=== PATIENT | female | born 2000 | race Hispanic/Latino ===

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

== ENCOUNTER 2023-03-23 18:14 | Emergency (ER) | payer OTHER ==
--- OUTSIDE RECORDS SUMMARY | 2023-03-23 18:27 | XMS REPORT | Continuity of Care Document ---
:2000 Author Organization [facility] t Address [address] [place] [address] [address] [place] [address] Care Team Providers Name Role Phone Damari Cabrera PA-C Primary Care Physician [phone] DAMARI CABRERA Attending Clinician Unavailable Doctor Unassigned, [place] Attending Clinician Unavailable Damari Cabrera PA-C Attending Clinician Mauri Garcia MD Attending Clinician SHAHZAD DAVIS Attending Clinician Unavailable Shahzad Hernández Attending Clinician Unknown, Attending Attending Clinician Unavailable MAURI GARCIA Attending Clinician Unavailable MARCUS HENDRIX III Attending Clinician Unavailable King KARLA MD, James C Attending Clinician Anamaria Hicks RN Attending Clinician Unavailable Colby Wynn MD Attending Clinician COLBY WYNN Attending Clinician Unavailable Lab, Santhosh Ramirez Attending Clinician Unavailable Isidra Grimaldo Attending Clinician Inocencia Epperson Attending Clinician INOCENCIA PAREKH Attending Clinician Unavailable [facility] Attending Clinician Unavailable YUDITH LAINEZ Attending Clinician Unavailable Yudith Adame Attending Clinician Provider[facility] Attending Clinician Unavailable Anene FEED RESEARCH TECHNICIAN, Gayla Attending Clinician GAYLA ARIAS Attending Clinician Unavailable Lab, Lkj Pedi Attending Clinician Unavailable Regis MASTERSON, Marisel Attending Clinician DAMARI CABRERA Admitting Clinician Unavailable Payers Payer Name Policy Type Policy Number Effective Date Expiration Date Dulce Maria AGUILAR [id number] 2020 00:00:00 [employer] II [id number] 2016 00:00:00 Problems Condition Condition Condition Status Onset Resolution Last Treating Co mments Source Name Details Category Date Date Treatment Clinician Date Encounter Encounter Disease Active Uni vers for post for post 2-12 ity of surgical surgical 00:00: [place] wound wound 00 Medical check check Branch S/P S/P Disease Active Univers matrixecto matrixecto 2-12 it y of my of toe [place] of [place] right of right 00 Medica [place] foot foot Branch Ingrown Ingrown Disease Active Univers toenail of toenail of 3-17 [place] of [place] feet [place] 00:[place] Paronychia Paronychia Disease Active U nivers of great of great 3-17 ity of toe[place] Methotrexa Methotrexa Disease Active U nivers te adverse te adverse 8-19 [place] of reaction, [place], [place] Adjustment Adjustment Disease Active U nivers disorder, disorder, 5-17 ity of unspecifie unspecifie [place] 00 [place] Inverted T Inverted T Disease Active U nivers wave wave 2-01 ity of 00:00: [place] 00 Medical Branch ADHD ADHD Disease Active 2017-06 Overview: Univer s (attention (attention 2-31 Formattin ity of deficit deficit 00:00: g of this [place] hyperactiv hyperactiv 00 note Me dical ity ity might be Branch disorder) disorder) different from the original. Formattin g of this note might be different from the original. 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 Formattin g of this note is different from the original. 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 CNS1 Induction Regimen TAT [id number] Arm A Enrolled or TAT TAT Induction Day 1 8 Cytogenet ics CDKN2A (p16) gene deletion Day 8 MRD n/a Day 29 MRD negative Post-garriosn ction risk group SR T-ALL Post-garrison ction regimen TAT [id number] Arm A - SR TPMT status NEGATIVE [...] ents Source Name Type Date Date Clinician NELARABI DRUG Active Low Other-Cmnt Univ ers NE INGREDI 08-31 ity of 00:00: [place] [facility] Nelarabi Propensi Active Other - See Give U lonnie ne ty to comments 08-31 acetamino ity o f adverse 00:00: phen [place] reaction 00 prior to Medica l s chemo d/t Branch headaches ASPARAGI DRUG Active High Other-Cmnt Univ ers NASE INGREDI 12-30 ity of 00:00: [place] 00 Medical Branch Asparagi Propensi Active Other - See Pancreat i Univers nase ty to comments 12-30 tis ity of adverse 00:00: [place] reaction 00 Medical s Branch Piperaci Propensi Active Unknown - Possible U nivers llin-Ankit ty to See comments 5 drug it y of obactam adverse 00:00: reaction [place] reaction 00 Medical s Branch PIPERACI DRUG Active Unknown-Cmnt Un german LLIN-ANKIT 5-17 ity of OBACTAM 00:00: [place] 00 Medical Branch PROMETHA DRUG Active Low Other-Cmnt Univ ers ZINE INGREDI 4- ity of 00:00: [place] [facility] Prometha Propensi Active Other - See Restless Univers zine ty to comments 09-10 behavior ity of adverse 00:00: Unknown [place] reaction 00 when she Medica l s had Branch reaction VANCOMYC DRUG Active High Other-Cmnt 2017-06 Univ ers IN INGREDI 08-01 ity of 00:00: [place] [facility] Vancomyc Propensi Active Other - See 2017-06 [facility] man' s Univers in ty to comments 08-01 syndrome, ity o f adverse 00:00: hives, [place] reaction 00 swelling Medica l s of face - Branch requires benadryl and infuse over 3 hrs Social History Social Habit Start Date Stop Date Quantity Comments Source Gender identity Universit y [facility] Sexual orientation Univer [facility] Exposure to 2022-10-22 2022-11-01 Not sure [facility] SARS-CoV-2 (event) 00:00:00 07:59:00 [facility] History of Social 2022-07-13 2022-07-13 Univers ity of function 00:00:00 00:00:00 [facility] Tobacco use and 2022-03-24 2022-03-24 Smokeless Universit y of exposure 00:00:00 00:00:00 tobacco non-user [facility] Sex Assigned At [birth year] Universit y of 00:00:00 00:00:00 [facility] Smoking Status Start Date Stop Date Source Never smoked tobacco [facility] Medications Ordered Filled Start Stop Current Ordering Indication Dosage Frequency Signature Comments Components Source Medication Medication Date Date Medication? Clinician (SIG) Name Name fluticasone Yes [id number] Take two Univers propionate 9-05 sprays ea ity of 50 00:00: nostril [place] mcg/actuati 00 BID Medical on nasal Branch spray fluticasone Yes [id number] Take two Univers propionate 9-05 sprays ea ity of 50 00:00: nostril [place] mcg/actuati 00 BID Medical on nasal Branch spray fluticasone 2022-0 Yes [id number] Take two Univers propionate 9-05 sprays ea ity of 50 00:00: nostril [place] mcg/actuati 00 BID Medical on nasal Branch spray lisdexamfet 2022-0 Yes [id number] 30mg Take 1 Univers amine 9-05 capsule by ity of (VYVANSE) 00:00: mouth [place] 30 mg 00 every Medical capsule morning. Branch fluticasone 2022-0 Yes [id number] Take two Univers propionate 9-05 sprays ea ity of 50 00:00: nostril [place] mcg/actuati 00 BID Medical on nasal Branch spray lisdexamfet 2022-0 Yes [id number] 30mg Take 1 Univers amine 9-05 capsule by ity of (VYVANSE) 00:00: mouth [place] 30 mg 00 every Medical capsule morning. Branch fluticasone 2022-0 Yes [id number] Take two Univers propionate 9-05 sprays ea ity of 50 00:00: nostril [place] mcg/actuati 00 BID Medical on nasal Branch spray lisdexamfet 2022-0 Yes [id number] 30mg Take 1 Univers amine 9-05 capsule by ity of (VYVANSE) 00:00: mouth [place] 30 mg 00 every Medical capsule morning. Branch cefdinir 2022-0 2022- Yes [id number] 600mg Take 2 U nivers 300 mg 9-10 11-16 capsules ity of capsule 00:00: 04:59 by mouth [place] 00 :00 in the Medical morning Branch for 10 days. cefdinir 2022-0 2022- Yes [id number] 600mg Take 2 U nivers 300 mg 9-05 09-16 capsules ity of capsule 00:00: 04:59 by mouth [place] 00 :00 in the Medical morning Branch for 10 days. cefdinir 2022-0 2022- Yes [id number] 600mg Take 2 U nivers 300 mg 9-10 11-16 capsules ity of capsule 00:00: 04:59 by mouth [place] 00 :00 in the Medical morning Branch for 10 days. cefdinir 2022-0 2022- Yes [id number] 600mg Take 2 U nivers 300 mg 9-10 11-16 capsules ity of capsule 00:00: 04:59 by mouth [place] 00 :00 in the Medical morning Branch for 10 days. albuterol 2022-0 Yes [id number] 2{puff} Inhale 2 Univers 90 7-25 Puffs ity of mcg/actuati 00:00: every 6 [place] on inhaler 00 (six) Medical hours as Branch needed for Shortness of Breath or Wheezing. bromphenira 2022-0 Yes [id number] 10mL Take 10 mL Univers mine-pseudo 7-25 by mouth 4 it y of ephedrine-D 00:00: (four) [place] M (BROMFED 00 times Medical DM) 2-30-10 daily as Bran ch mg/5 mL needed for syrup Cold symptoms. ibuprofen 0 Yes [id number] 600mg Take 1 U nivers 600 mg 7-25 tablet by ity of tablet 00:00: mouth [place] 00 every 6 Medical (six) Branch hours as needed for Pain (scale 1-3) or Pain (scale 4-6). albuterol 2022-0 Yes [id number] 2{puff} Inhale 2 Univers 90 7-25 Puffs ity of mcg/actuati 00:00: every 6 [place] on inhaler 00 (six) Medical hours as Branch needed for Shortness of Breath or Wheezing. bromphenira 2022-0 Yes [id number] 10mL Take 10 mL Univers mine-pseudo 7-25 by mouth 4 it y of ephedrine-D 00:00: (four) [place] M (BROMFED 00 times Medical DM) 2-30-10 daily as Bran ch mg/5 mL needed for syrup Cold symptoms. ibuprofen 2022-0 Yes [id number] 600mg Take 1 U nivers 600 mg 7-25 tablet by ity of tablet 00:00: mouth [place] 00 every 6 Medical (six) Branch hours as needed for Pain (scale 1-3) or Pain (scale 4-6). albuterol 2022-0 Yes [id number] 2{puff} Inhale 2 Univers 90 7-25 Puffs ity of mcg/actuati 00:00: every 6 [place] on inhaler 00 (six) Medical hours as Branch needed for Shortness of Breath or Wheezing. bromphenira 2022-0 Yes [id number] 10mL Take 10 mL Univers mine-pseudo 7-25 by mouth 4 it y of ephedrine-D 00:00: (four) [place] M (BROMFED 00 times Medical DM) 2-30-10 daily as Bran ch mg/5 mL needed for syrup Cold symptoms. ibuprofen Yes [id number] 600mg Take 1 U nivers 600 mg 7-25 tablet by ity of tablet 00:00: mouth [place] 00 every 6 Medical (six) Branch hours as needed for Pain (scale 1-3) or Pain (scale 4-6). albuterol Yes [id number] 2{puff} Inhale 2 Univers 90 7-25 Puffs ity of mcg/actuati 00:00: every 6 [place] inhaler 00 (six) Medical hours as Branch needed for Shortness of Breath or Wheezing. bromphenira 0 Yes [id number] 10mL Take 10 mL Univers mine-pseudo 7-25 by mouth 4 it y of ephedrine-D 00:00: (four) [place] M (BROMFED 00 times Medical DM) 2-30-10 daily as Bran ch mg/5 mL needed for syrup Cold symptoms. ibuprofen Yes [id number] 600mg Take 1 U nivers 600 mg 7-25 tablet by ity of tablet 00:00: mouth [place] 00 every 6 Medical (six) Branch hours as needed for Pain (scale 1-3) or Pain (scale 4-6). albuterol Yes [id number] 2{puff} Inhale 2 Univers 90 7-25 Puffs ity of mcg/actuati 00:00: every 6 [place] on inhaler 00 (six) Medical hours as Branch needed for Shortness of Breath or Wheezing. bromphenira 0 Yes [id number] 10mL Take 10 mL Univers mine-pseudo 7-25 by mouth 4 it y of ephedrine-D 00:00: (four) [place] M (BROMFED 00 times Medical DM) 2-30-10 daily as Bran ch mg/5 mL needed for syrup Cold symptoms. ibuprofen Yes [id number] 600mg Take 1 U nivers 600 mg 7-25 tablet by ity of tablet 00:00: mouth [place] 00 every 6 Medical (six) Branch hours as needed for Pain (scale 1-3) or Pain (scale 4-6). albuterol 2022-0 Yes [id number] 2{puff} Inhale 2 Univers 90 7-25 Puffs ity of mcg/actuati 00:00: every 6 [place] on inhaler 00 (six) Medical hours as Branch needed for Shortness of Breath or Wheezing. bromphenira 2022-0 Yes [id number] 10mL Take 10 mL Univers mine-pseudo 7-25 by mouth 4 it y of ephedrine-D 00:00: (four) [place] M (BROMFED 00 times Medical DM) 2-30-10 daily as Bran ch mg/5 mL needed for syrup Cold symptoms. ibuprofen 0 Yes [id number] 600mg Take 1 U nivers 600 mg 7-25 tablet by ity of tablet 00:00: mouth [place] 00 every 6 Medical (six) Branch hours as needed for Pain (scale 1-3) or Pain (scale 4-6). albuterol 2022-0 Yes [id number] 2{puff} Inhale 2 Univers 90 7-25 Puffs ity of mcg/actuati 00:00: every 6 [place] on inhaler 00 (six) Medical hours as Branch needed for Shortness of Breath or Wheezing. bromphenira 2022-0 Yes [id number] 10mL Take 10 mL Univers mine-pseudo 7-25 by mouth 4 it y of ephedrine-D 00:00: (four) [place] M (BROMFED 00 times Medical DM) 2-30-10 daily as Bran ch mg/5 mL needed for syrup Cold symptoms. ibuprofen 2022-0 Yes [id number] 600mg Take 1 U nivers 600 mg 7-25 tablet by ity of tablet 00:00: mouth [place] 00 every 6 Medical (six) Branch hours as needed for Pain (scale 1-3) or Pain (scale 4-6). albuterol 2022-0 Yes [id number] 2{puff} Inhale 2 Univers 90 7-25 Puffs ity of mcg/actuati 00:00: every 6 [place] inhaler 00 (six) Medical hours as Branch needed for Shortness of Breath or Wheezing. bromphenira 2022-0 Yes [id number] 10mL Take 10 mL Univers mine-pseudo 7-25 by mouth 4 it y of ephedrine-D 00:00: (four) [place] M (BROMFED 00 times Medical DM) 2-30-10 daily as Bran ch mg/5 mL needed for syrup Cold symptoms. ibuprofen 2022-0 Yes [id number] 600mg Take 1 U nivers 600 mg 7-25 tablet by ity of tablet 00:00: mouth [place] 00 every 6 Medical (six) Branch hours as needed for Pain (scale 1-3) or Pain (scale 4-6). albuterol 2022-0 Yes [id number] 2{puff} Inhale 2 Univers 90 7-25 Puffs ity of mcg/actuati 00:00: every 6 [place] on inhaler 00 (six) Medical hours as Branch needed for Shortness of Breath or Wheezing. bromphenira 2022-0 Yes [id number] 10mL Take 10 mL Univers mine-pseudo 7-25 by mouth 4 it y of ephedrine-D 00:00: (four) [place] M (BROMFED 00 times Medical DM) 2-30-10 daily as Bran ch mg/5 mL needed for syrup Cold symptoms. ibuprofen 0 Yes [id number] 600mg Take 1 U nivers 600 mg 7-25 tablet by ity of tablet 00:00: mouth [place] 00 every 6 Medical (six) Branch hours as needed for Pain (scale 1-3) or Pain (scale 4-6). albuterol 2022-0 Yes [id number] 2{puff} Inhale 2 Univers 90 7-25 Puffs ity of mcg/actuati 00:00: every 6 [place] on inhaler 00 (six) Medical hours as Branch needed for Shortness of Breath or Wheezing. bromphenira 2022-0 Yes [id number] 10mL Take 10 mL Univers mine-pseudo 7-25 by mouth 4 it y of ephedrine-D 00:00: (four) [place] M (BROMFED 00 times Medical DM) 2-30-10 daily as Bran ch mg/5 mL needed for syrup Cold symptoms. ibuprofen 2022-0 Yes [id number] 600mg Take 1 U nivers 600 mg 7-25 tablet by ity of tablet 00:00: mouth [place] 00 every 6 Medical (six) Branch hours as needed for Pain (scale 1-3) or Pain (scale 4-6). albuterol 2022-0 Yes [id number] 2{puff} Inhale 2 Univers 90 7-25 Puffs ity of mcg/actuati 00:00: every 6 [place] on inhaler 00 (six) Medical hours as Branch needed for Shortness of Breath or Wheezing. bromphenira Yes [id number] 10mL Take 10 mL Univers mine-pseudo 7-25 by mouth 4 it y of ephedrine-D 00:00: (four) [place] M (BROMFED 00 times Medical DM) 2-30-10 daily as Bran ch mg/5 mL needed for syrup Cold symptoms. ibuprofen Yes [id number] 600mg Take 1 U nivers 600 mg 7-25 tablet by ity of tablet 00:00: mouth [place] 00 every 6 Medical (six) Branch hours as needed for Pain (scale 1-3) or Pain (scale 4-6). albuterol Yes [id number] 2{puff} Inhale 2 Univers 90 7-25 Puffs ity of mcg/actuati 00:00: every 6 [place] on inhaler 00 (six) Medical hours as Branch needed for Shortness of Breath or Wheezing. bromphenira Yes [id number] 10mL Take 10 mL Univers mine-pseudo 7-25 by mouth 4 it y of ephedrine-D 00:00: (four) [place] M (BROMFED 00 times Medical DM) 2-30-10 daily as Bran ch mg/5 mL needed for syrup Cold symptoms. ibuprofen Yes [id number] 600mg Take 1 U nivers 600 mg 7-25 tablet by ity of tablet 00:00: mouth [place] 00 every 6 Medical (six) Branch hours as needed for Pain (scale 1-3) or Pain (scale 4-6). albuterol Yes [id number] 2{puff} Inhale 2 Univers 90 7-25 Puffs ity of mcg/actuati 00:00: every 6 [place] on inhaler 00 (six) Medical hours as Branch needed for Shortness of Breath or Wheezing. bromphenira 0 Yes [id number] 10mL Take 10 mL Univers mine-pseudo 7-25 by mouth 4 it y of ephedrine-D 00:00: (four) [place] M (BROMFED 00 times Medical DM) 2-30-10 daily as Bran ch mg/5 mL needed for syrup Cold symptoms. ibuprofen 0 Yes [id number] 600mg Take 1 U nivers 600 mg 7-25 tablet by ity of tablet 00:00: mouth [place] 00 every 6 Medical (six) Branch hours as needed for Pain (scale 1-3) or Pain (scale 4-6). lisdexamfet 0 Yes [id number] 30mg Take 1 Univers amine 6-29 capsule by ity of (VYVANSE) 00:00: mouth [place] 30 mg 00 every Medical capsule morning. Branch lisdexamfet Yes [id number] 30mg Take 1 Univers amine 6-29 capsule by ity of (VYVANSE) 00:00: mouth [place] 30 mg 00 every Medical capsule morning. Branch lisdexamfet Yes [id number] 30mg Take 1 Univers amine 6-29 capsule by ity of (VYVANSE) 00:00: mouth [place] 30 mg 00 every Medical capsule morning. Branch lisdexamfet Yes [id number] 30mg Take 1 Univers amine 6-29 capsule by ity of (VYVANSE) 00:00: mouth [place] 30 mg 00 every Medical capsule morning. Branch lisdexamfet Yes [id number] 30mg Take 1 Univers amine 6-29 capsule by ity of (VYVANSE) 00:00: mouth [place] 30 mg 00 every Medical capsule morning. Branch lisdexamfet Yes [id number] 30mg Take 1 Univers amine 6-29 capsule by ity of (VYVANSE) 00:00: mouth [place] 30 mg 00 every Medical capsule morning. Branch lisdexamfet Yes [id number] 30mg Take 1 Univers amine 6-29 capsule by ity of (VYVANSE) 00:00: mouth [place] 30 mg 00 every Medical capsule morning. Branch lisdexamfet 2022-0 Yes [id number] 30mg Take 1 Univers amine 6-29 capsule by ity of (VYVANSE) 00:00: mouth [place] 30 mg 00 every Medical capsule morning. Branch lisdexamfet 2022- Yes [id number] 30mg Take 1 Univers amine 6-29 capsule by ity of (VYVANSE) 00:00: mouth [place] 30 mg 00 every Medical capsule morning. Branch lisdexamfet 2022-0 Yes [id number] 30mg Take 1 Univers amine 6-29 capsule by ity of (VYVANSE) 00:00: mouth [place] 30 mg 00 every Medical capsule morning. Branch lisdexamfet 2022-0 Yes [id number] 30mg Take 1 Univers amine 6-29 capsule by ity of (VYVANSE) 00:00: mouth [place] 30 mg 00 every Medical capsule morning. Branch lisdexamfet 0 3- No [id number] 30mg Take 1 Univers amine 6-29 09-05 capsule by ity of (VYVANSE) 00:00: 00:00 mouth [place] 30 mg 00 :00 every Medical capsule morning. Branch lisdexamfet 2022-0 Yes [id number] 20mg Take 1 Univers amine 5-30 capsule by ity of (VYVANSE) 00:00: mouth [place] 20 mg 00 every Medical capsule morning. Branch lisdexamfet 2022- No [id number] 20mg Take 1 Univers amine 5-30 06-28 capsule by ity of (VYVANSE) 00:00: 00:00 mouth [place] 20 mg 00 :00 every Medical capsule morning. Branch lisdexamfet 2022- No [id number] 20mg Take 1 Univers amine 5-30 06-28 capsule by ity of (VYVANSE) 00:00: 00:00 mouth [place] 20 mg 00 :00 every Medical capsule morning. Branch benzonatate 2022-0 Yes [id number] 100mg Take 1 Univers 100 mg 2-15 capsule by ity of capsule 00:00: mouth [place] 00 every 8 Medical (eight) Branch hours as needed for Cough. benzonatate 2022-0 Yes [id number] 100mg Take 1 Univers 100 mg 2-15 capsule by ity of capsule 00:00: mouth [place] 00 every 8 Medical (eight) Branch hours as needed for Cough. benzonatate 2022-0 2022- No [id number] 100mg Take 1 Univers 100 mg 2-15 05-30 capsule by ity of capsule 00:00: 00:00 mouth [place] 00 :00 every 8 Medical (eight) Branch hours as needed for Cough. benzonatate 2022-0 3- No [id number] 100mg Take 1 Univers 100 mg 2-15 05-30 capsule by ity of capsule 00:00: 00:00 mouth [place] 00 :00 every 8 Medical (eight) Branch hours as needed for Cough. Methylpredn 2022-0 2023- No [id number] 4mg Take 1 Univers isolone 4 2-15 02-21 tablet by ity of mg tablet 00:00: 05:59 mouth [place] 00 :00 every 12 Medical (twelve) Branch hours for 5 days. ondansetron 2022-0 Yes [id number] 4mg Take 1 Univers 4 mg 2-08 tablet by ity of disintegrat 00:00: mouth [place] ing tablet 00 every 8 Medica l (eight) Branch hours as needed for Nausea and Vomiting (N/V). albuterol 2022-0 Yes [id number] 2{puff} Inhale 2 Univers 90 2-08 Puffs ity of mcg/actuati 00:00: every 6 [place] on inhaler 00 (six) Medical hours as Branch needed for Wheezing or Shortness of Breath. ondansetron 2022-0 Yes [id number] 4mg Take 1 Univers 4 mg 2-08 tablet by ity of disintegrat 00:00: mouth [place] ing tablet 00 every 8 Medica l (eight) Branch hours as needed for Nausea and Vomiting (N/V). albuterol 2022-0 Yes [id number] 2{puff} Inhale 2 Univers 90 2-08 Puffs ity of mcg/actuati 00:00: every 6 [place] on inhaler 00 (six) Medical hours as Branch needed for Wheezing or Shortness of Breath. ondansetron 2022-0 Yes [id number] 4mg Take 1 Univers 4 mg 2-08 tablet by ity of disintegrat 00:00: mouth [place] ing tablet 00 every 8 Medica l (eight) Branch hours as needed for Nausea and Vomiting (N/V). albuterol 3-0 Yes [id number] 2{puff} Inhale 2 Univers 90 2-08 Puffs ity of mcg/actuati 00:00: every 6 [place] on inhaler 00 (six) Medical hours as Branch needed for Wheezing or Shortness of Breath. ondansetron 3-0 Yes [id number] 4mg Take 1 Univers 4 mg 2-08 tablet by ity of disintegrat 00:00: mouth [place] ing tablet 00 every 8 Medica l (eight) Branch hours as needed for Nausea and Vomiting (N/V). albuterol Yes [id number] 2{puff} Inhale 2 Univers 90 2-08 Puffs ity of mcg/actuati 00:00: every 6 [place] on inhaler 00 (six) Medical hours as Branch needed for Wheezing or Shortness of Breath. ondansetron Yes [id number] 4mg Take 1 Univers 4 mg 2-08 tablet by ity of disintegrat 00:00: mouth [place] ing tablet 00 every 8 Medica l (eight) Branch hours as needed for Nausea and Vomiting (N/V). albuterol Yes [id number] 2{puff} Inhale 2 Univers 90 2-08 Puffs ity of mcg/actuati 00:00: every 6 [place] on inhaler 00 (six) Medical hours as Branch needed for Wheezing or Shortness of Breath. ondansetron Yes [id number] 4mg Take 1 Univers 4 mg 2-08 tablet by ity of disintegrat 00:00: mouth [place] ing tablet 00 every 8 Medica l (eight) Branch hours as needed for Nausea and Vomiting (N/V). albuterol Yes [id number] 2{puff} Inhale 2 Univers 90 2-08 Puffs ity of mcg/actuati 00:00: every 6 [place] on inhaler 00 (six) Medical hours as Branch needed for Wheezing or Shortness of Breath. albuterol Yes [id number] 2{puff} Inhale 2 Univers 90 2-08 Puffs ity of mcg/actuati 00:00: every 6 [place] on inhaler 00 (six) Medical hours as Branch needed for Wheezing or Shortness of Breath. albuterol Yes [id number] 2{puff} Inhale 2 Univers 90 2-08 Puffs ity of mcg/actuati 00:00: every 6 [place] on inhaler 00 (six) Medical hours as Branch needed for Wheezing or Shortness of Breath. albuterol 0 Yes [id number] 2{puff} Inhale 2 Univers 90 2-08 Puffs ity of mcg/actuati 00:00: every 6 [place] on inhaler 00 (six) Medical hours as Branch needed for Wheezing or Shortness of Breath. albuterol Yes [id number] 2{puff} Inhale 2 Univers 90 2-08 Puffs ity of mcg/actuati 00:00: every 6 [place] on inhaler 00 (six) Medical hours as Branch needed for Wheezing or Shortness of Breath. albuterol Yes [id number] 2{puff} Inhale 2 Univers 90 2-08 Puffs ity of mcg/actuati 00:00: every 6 [place] on inhaler 00 (six) Medical hours as Branch needed for Wheezing or Shortness of Breath. albuterol Yes [id number] 2{puff} Inhale 2 Univers 90 2-08 Puffs ity of mcg/actuati 00:00: every 6 [place] on inhaler 00 (six) Medical hours as Branch needed for Wheezing or Shortness of Breath. albuterol 2022- No [id number] 2{puff} Inhale 2 Univers 90 2-08 07-25 Puffs ity of mcg/actuati 00:00: 00:00 every 6 [place] inhaler 00 :00 (six) Medical hours as Branch needed for Wheezing or Shortness of Breath. ondansetron 2022- No [id number] 4mg Take 1 Univers 4 mg 2-08 05-30 tablet by ity of disintegrat 00:00: 00:00 [place] tablet 00 :00 every 8 Medica l (eight) Branch hours as needed for Nausea and Vomiting (N/V). ondansetron 2022- No [id number] 4mg Take 1 Univers 4 mg 2-08 05-30 tablet by ity of disintegrat 00:00: 00:00 [place] tablet 00 :00 every 8 Medica l (eight) Branch hours as needed for Nausea and Vomiting (N/V). IBUPROFEN 2022- No Take by [facility] ers ORAL 06-15 mouth. ity of 10:03: 00:00 [place] 50 :00 Medical Branch IBUPROFEN 2022- No Take by [facility] ers ORAL 06-15 mouth. ity of 10:03: 00:00 [place] 50 :00 Medical Branch naproxen 0 Yes [id number] Take 1 tab Univers 500 mg 11 once to ity of tablet 00:00: twice [place] 00 daily, Medical with food, Branch if needed for pain for 5-7 days naproxen 2023-0 Yes [id number] Take 1 tab [facility] 500 mg 1-11 once to [facility] of tablet 00:00: twice [place] 00 daily, Medical with food, Branch if needed for pain for 5-7 days naproxen 2023-0 Yes [id number] Take 1 tab [facility] 500 mg 1-11 once to [facility] of tablet 00:00: twice [place] 00 daily, Medical with food, Branch if needed for pain for 5-7 days naproxen 2023-0 Yes [id number] Take 1 tab [facility] 500 mg 1-11 once to [facility]y of tablet 00:00: twice [place] 00 daily, Medical with food, Branch if needed for pain for 5-7 days naproxen 2023-0 Yes [id number] Take 1 tab [facility] 500 mg 1-11 once to [facility] of tablet 00:00: twice [place] 00 daily, Medical with food, Branch if needed for pain for 5-7 days naproxen 2023-0 Yes [id number] Take 1 tab [facility] 500 mg 1-11 once to [facility]y of tablet 00:00: twice [place] 00 daily, Medical with food, Branch if needed for pain for 5-7 days naproxen 2023-0 Yes [id number] Take 1 tab [facility] 500 mg 1-11 once to [facility]y of tablet 00:00: twice [place] 00 daily, Medical with food, Branch if needed for pain for 5-7 days naproxen 2023-0 Yes [id number] Take 1 tab [facility] 500 mg 1-11 once to [facility]y of tablet 00:00: twice [place] 00 daily, Medical with food, Branch if needed for pain for 5-7 days naproxen 2023-0 Yes [id number] Take 1 tab [facility] 500 mg 1-11 once to ity of tablet 00:00: twice [place] 00 daily, Medical with food, Branch if needed for pain for 5-7 days naproxen 2023-0 Yes [id number] Take 1 tab [facility] 500 mg 1-11 once to [facility]y of tablet 00:00: twice [place] 00 daily, Medical with food, Branch if needed for pain for 5-7 days naproxen 2023-0 Yes [id number] Take 1 tab [facility] 500 mg 1-11 once to ity of tablet 00:00: twice [place] 00 daily, Medical with food, Branch if needed for pain for 5-7 days naproxen 2023-0 Yes [id number] Take 1 tab [facility] 500 mg 1-11 once to [facility]y of tablet 00:00: twice [place] 00 daily, Medical with food, Branch if needed for pain for 5-7 days naproxen 2023-0 Yes [id number] Take 1 tab [facility] 500 mg 1-11 once to ity of tablet 00:00: twice [place] 00 daily, Medical with food, Branch if needed for pain for 5-7 days naproxen 2023-0 Yes [id number] Take 1 tab [facility] 500 mg 1-11 once to ity of tablet 00:00: twice [place] 00 daily, Medical with food, Branch if needed for pain for 5-7 days naproxen 2023-0 Yes [id number] Take 1 tab [facility] 500 mg 1-11 once to ity of tablet 00:00: twice [place] 00 daily, Medical with food, Branch if needed for pain for 5-7 days naproxen 2023-0 Yes [id number] Take 1 tab [facility] 500 mg 1-11 once to ity of tablet 00:00: twice [place] 00 daily, Medical with food, Branch if needed for pain for 5-7 days naproxen 2023-0 Yes [id number] Take 1 tab [facility] 500 mg 1-11 once to [facility]y of tablet 00:00: twice [place] 00 daily, Medical with food, Branch if needed for pain for 5-7 days naproxen 2023-0 Yes [id number] Take 1 tab [facility] 500 mg 1-11 once to [facility]y of tablet 00:00: twice [place] 00 daily, Medical with food, Branch if needed for pain for 5-7 days naproxen 2023-0 Yes [id number] Take 1 tab [facility] 500 mg 1-11 once to [facility]y of tablet 00:00: twice [place] 00 daily, Medical with food, Branch if needed for pain for 5-7 days naproxen 2023-0 Yes [id number] Take 1 tab [facility] 500 mg 1-11 once to [facility]y of tablet 00:00: twice [place] 00 daily, Medical with food, Branch if needed for pain for 5-7 days naproxen 2023-0 Yes [id number] Take 1 tab [facility] 500 mg 1-11 once to ity of tablet 00:00: twice [place] 00 daily, Medical with food, Branch if needed for pain for 5-7 days naproxen 2023-0 Yes [id number] Take 1 tab [facility] 500 mg 1-11 once to ity of tablet 00:00: twice [place] 00 daily, Medical with food, Branch if needed for pain for 5-7 days naproxen 2023-0 Yes [id number] Take 1 tab [facility] 500 mg 1-11 once to ity of tablet 00:00: twice [place] 00 daily, Medical with food, Branch if needed for pain for 5-7 days naproxen 2023-0 Yes [id number] Take 1 tab [facility] 500 mg 1-11 once to ity of tablet 00:00: twice [place] 00 daily, Medical with food, Branch if needed for pain for 5-7 days naproxen 2023-0 Yes [id number] Take 1 tab [facility] 500 mg 1-11 once to ity of tablet 00:00: twice [place] 00 daily, Medical with food, Branch if needed for pain for 5-7 days naproxen 2023-0 Yes [id number] Take 1 tab [facility] 500 mg 1-11 once to ity of tablet 00:00: twice [place] 00 daily, Medical with food, Branch if needed for pain for 5-7 days naproxen 2023-0 Yes [id number] Take 1 tab [facility] 500 mg 1-11 once to ity of tablet 00:00: twice [place] 00 daily, Medical with food, Branch if needed for pain for 5-7 days naproxen 2023-0 Yes [id number] Take 1 tab [facility] 500 mg 1-11 once to ity of tablet 00:00: twice [place] 00 daily, Medical with food, Branch if needed for pain for 5-7 days naproxen 2023-0 Yes [id number] Take 1 tab [facility] 500 mg 1-11 once to ity of tablet 00:00: twice [place] 00 daily, Medical with food, Branch if needed for pain for 5-7 days lisdexamfet 2021- Yes [id number] 40mg Take 1 [facility] amine 2-06 capsule by ity of (VYVANSE) 00:00: mouth [place] 40 mg 00 every Medical capsule morning. Branch lisdexamfet 2021- Yes [id number] 40mg Take 1 [facility] amine 2-06 capsule by ity of (VYVANSE) 00:00: mouth [place] 40 mg 00 every Medical capsule morning. Branch lisdexamfet 2021-06 Yes [id number] 40mg Take 1 [facility] amine 2-06 capsule by ity of (VYVANSE) 00:00: mouth [place] 40 mg 00 every Medical capsule morning. Branch lisdexamfet 2021-06 Yes [id number] 40mg Take 1 [facility] amine 2-06 capsule by ity of (VYVANSE) 00:00: mouth [place] 40 mg 00 every Medical capsule morning. Branch lisdexamfet 2021-06 Yes [id number] 40mg Take 1 [facility] amine 2-06 capsule by ity of (VYVANSE) 00:00: mouth [place] 40 mg 00 every Medical capsule morning. Branch lisdexamfet 2021-06 Yes [id number] 40mg Take 1 [facility] amine 2-06 capsule by ity of (VYVANSE) 00:00: mouth [place] 40 mg 00 every Medical capsule morning. Branch lisdexamfet 2021-06 Yes [id number] 40mg Take 1 [facility] amine 2-06 capsule by ity of (VYVANSE) 00:00: mouth [place] 40 mg 00 every Medical capsule morning. Branch lisdexamfet 2021-06 Yes [id number] 40mg Take 1 [facility] amine 2-06 capsule by ity of (VYVANSE) 00:00: mouth [place] 40 mg 00 every Medical capsule morning. Branch lisdexamfet 2021-06 Yes [id number] 40mg Take 1 [facility] amine 2-06 capsule by ity of (VYVANSE) 00:00: mouth [place] 40 mg 00 every Medical capsule morning. Branch lisdexamfet 2021-06 Yes [id number] 40mg Take 1 [facility] amine 2-06 capsule by ity of (VYVANSE) 00:00: mouth [place] 40 mg 00 every Medical capsule morning. Branch lisdexamfet 2021-06- No [id number] 40mg Take 1 [facility] amine 2-06 05-30 capsule by ity of (VYVANSE) 00:00: 00:00 mouth [place] 40 mg 00 :00 every Medical capsule morning. Branch lisdexamfet 2021-06- No [id number] 40mg Take 1 [facility] amine 2-06 05-30 capsule by ity of (VYVANSE) 00:00: 00:00 mouth [place] 40 mg 00 :00 every Medical capsule morning. Branch lisdexamfet 2021-06 Yes [id number] 40mg Take 1 [facility] amine 1-01 capsule by ity of (VYVANSE) 00:00: mouth [place] 40 mg 00 every Medical capsule morning. Branch lisdexamfet 2021-06 Yes [id number] 40mg Take 1 [facility] amine 1-01 capsule by ity of (VYVANSE) 00:00: mouth [place] 40 mg 00 every Medical capsule morning. Branch lisdexamfet 2021-06 Yes [id number] 40mg Take 1 [facility] amine 1-01 capsule by ity of (VYVANSE) 00:00: mouth [place] 40 mg 00 every Medical capsule morning. Branch lisdexamfet 2021-06 Yes [id number] 40mg Take 1 [facility] amine 1-01 capsule by ity of (VYVANSE) 00:00: mouth [place] 40 mg 00 every Medical capsule morning. Branch lisdexamfet 2021-06- No [id number] 40mg Take 1 [facility] amine 1-01 12-06 capsule by ity of (VYVANSE) 00:00: 00:00 mouth [place] 40 mg 00 :00 every Medical capsule morning. Branch cetirizine 2021-06 Yes [id number] 10mg Take 1 [facility] (ZYRTEC) 10 0-24 tablet by [facility] of mg tablet 00:00: mouth [place] the Medical morning. Branch albuterol 2021-06 Yes 2{puff} Inhale 2 [facility] (PROAIR 0-24 Puffs ity of HFA) 90 00:00: every 4 [place] mcg/actuati 00 (four) Medica l on inhaler hours as Branc h needed for Wheezing, Shortness of Breath or Chest tightness. benzonatate 2021-06 Yes [id number] 100mg Take 1 [facility] (TESSALON 0-24 capsule by ity of PERLES) 100 00:00: mouth [place] mg capsule 00 every 8 Medica l (eight) Branch hours as needed for Cough. cetirizine 2021-06 Yes [id number] 10mg Take 1 [facility] (ZYRTEC) 10 0-24 tablet by [facility] of mg tablet 00:00: mouth in [place] 00 the Medical morning. Branch albuterol 2021-06 Yes 2{puff} Inhale 2 [facility] (PROAIR 0-24 Puffs ity of HFA) 90 00:00: every 4 [place] mcg/actuati 00 (four) Medica l on inhaler hours as Branc h needed for Wheezing, Shortness of Breath or Chest tightness. benzonatate 2021-06 Yes [id number] 100mg Take 1 [facility] (TESSALON 0-24 capsule by ity of PERLES) 100 00:00: mouth [place] mg capsule 00 every 8 Medica l (eight) Branch hours as needed for Cough. cetirizine 2021-06 Yes [id number] 10mg Take 1 [facility] (ZYRTEC) 10 0-24 tablet by ity of mg tablet 00:00: mouth [place] the Medical morning. [place] albuterol 2021-06 Yes 2{puff} Inhale 2 [facility] (PROAIR 0-24 Puffs ity of HFA) 90 00:00: every 4 [place] mcg/actuati 00 (four) Medica l on inhaler hours as Branc h needed for Wheezing, Shortness of Breath or Chest tightness. benzonatate 2021-06 Yes [id number] 100mg Take 1 [facility] (TESSALON 0-24 capsule by ity of PERLES) 100 00:00: mouth [place] mg capsule 00 every 8 Medica l (eight) Branch hours as needed for Cough. cetirizine 2021-06 Yes [id number] 10mg Take 1 [facility] (ZYRTEC) 10 0-24 tablet by ity of mg tablet 00:00: mouth in [place] 00 the Medical morning. Branch albuterol 2021-06 Yes 2{puff} Inhale 2 [facility] (PROAIR 0-24 Puffs ity of HFA) 90 00:00: every 4 [place] mcg/actuati 00 (four) Medica l on inhaler hours as Branc h needed for Wheezing, Shortness of Breath or Chest tightness. benzonatate 2021-06 Yes [id number] 100mg Take 1 [facility] (TESSALON 0-24 capsule by ity of PERLES) 100 00:00: mouth [place] mg capsule 00 every 8 Medica l (eight) Branch hours as needed for Cough. cetirizine 2021-06 Yes [id number] 10mg Take 1 [facility] (ZYRTEC) 10 0-24 tablet by ity of mg tablet 00:00: mouth in [place] 00 the Medical morning. Branch albuterol 2021-06 Yes 2{puff} Inhale 2 [facility] (PROAIR 0-24 Puffs ity of HFA) 90 00:00: every 4 [place] mcg/actuati 00 (four) Medica l on inhaler hours as Branc h needed for Wheezing, Shortness of Breath or Chest tightness. benzonatate 2021-06 Yes [id number] 100mg Take 1 [facility] (TESSALON 0-24 capsule by ity of PERLES) 100 00:00: mouth [place] mg capsule 00 every 8 Medica l (eight) Branch hours as needed for Cough. cetirizine 2021-06 Yes [id number] 10mg Take 1 [facility] (ZYRTEC) 10 0-24 tablet by ity of mg tablet 00:00: mouth in [place] 00 the Medical morning. Branch albuterol 2021-06 Yes 2{puff} Inhale 2 [facility] (PROAIR 0-24 Puffs ity of HFA) 90 00:00: every 4 [place] mcg/actuati 00 (four) Medica l on inhaler hours as Branc h needed for Wheezing, Shortness of Breath or Chest tightness. benzonatate 2021-06 Yes [id number] 100mg Take 1 [facility] (TESSALON 0-24 capsule by ity of PERLES) 100 00:00: mouth [place] mg capsule 00 every 8 Medica l (eight) Branch hours as needed for Cough. cetirizine 2021-06 Yes [id number] 10mg Take 1 [facility] (ZYRTEC) 10 0-24 tablet by ity of mg tablet 00:00: mouth in [place] 00 the Medical morning. Branch albuterol 2021-06 Yes 2{puff} Inhale 2 [facility] (PROAIR 0-24 Puffs ity of HFA) 90 00:00: every 4 [place] mcg/actuati 00 (four) Medica l on inhaler hours as Branc h needed for Wheezing, Shortness of Breath or Chest tightness. benzonatate 2021-06 Yes [id number] 100mg Take 1 [facility] (TESSALON 0-24 capsule by ity of PERLES) 100 00:00: mouth [place] mg capsule 00 every 8 Medica l (eight) Branch hours as needed for Cough. cetirizine 2021-06 Yes [id number] 10mg Take 1 [facility] (ZYRTEC) 10 0-24 tablet by ity of mg tablet 00:00: mouth [place] 00 the Medical morning. Branch albuterol 2021-06 Yes 2{puff} Inhale 2 [facility] (PROAIR 0-24 Puffs ity of HFA) 90 00:00: every 4 [place] mcg/actuati 00 (four) Medica l on inhaler hours as Branc h needed for Wheezing, Shortness of Breath or Chest tightness. benzonatate 2021-06 Yes [id number] 100mg Take 1 [facility] (TESSALON 0-24 capsule by itsam[facility] of LEE) 100 00:00: mouth [place] mg capsule 00 every 8 Medica l (eight) Branch hours as needed for Cough. cetirizine 2021-06 Yes [id number] 10mg Take 1 [facility] (ZYRTEC) 10 0-24 tablet by ity of mg tablet 00:00: mouth in [place] the Medical morning. Branch albuterol 2021-06 Yes 2{puff} Inhale 2 [facility] (PROAIR 0-24 Puffs ity of HFA) 90 00:00: every 4 [place] mcg/actuati 00 (four) Medica l on inhaler hours as Branc h needed for Wheezing, Shortness of Breath or Chest tightness. cetirizine 2021-06 Yes [id number] 10mg Take 1 [facility] (ZYRTEC) 10 0-24 tablet by ity of mg tablet 00:00: mouth [place] the Medical morning. Branch albuterol 2021-06 Yes 2{puff} Inhale 2 [facility] (PROAIR 0-24 Puffs ity of HFA) 90 00:00: every 4 [place] mcg/actuati 00 (four) Medica l on inhaler hours as Branc h needed for Wheezing, Shortness of Breath or Chest tightness. cetirizine 2021-06 Yes [id number] 10mg Take 1 [facility] (ZYRTEC) 10 0-24 tablet by ity of mg tablet 00:00: mouth [place] 00 the Medical morning. Branch albuterol 2021-06 Yes 2{puff} Inhale 2 [facility] (PROAIR 0-24 Puffs ity of HFA) 90 00:00: every 4 [place] mcg/actuati 00 (four) Medica l on inhaler hours as Branc h needed for Wheezing, Shortness of Breath or Chest tightness. cetirizine 2021-06 Yes [id number] 10mg Take 1 [facility] (ZYRTEC) 10 0-24 tablet by ity of mg tablet 00:00: mouth in [place] the Medical morning. Branch albuterol 2021-06 Yes 2{puff} Inhale 2 [facility] (PROAIR 0-24 Puffs ity of HFA) 90 00:00: every 4 [place] mcg/actuati 00 (four) Medica l on inhaler hours as Branc h needed for Wheezing, Shortness of Breath or Chest tightness. cetirizine 2021-06 Yes [id number] 10mg Take 1 [facility] (ZYRTEC) 10 0-24 tablet by ity of mg tablet 00:00: mouth in [place] the Medical morning. Branch albuterol 2021-06 Yes 2{puff} Inhale 2 [facility] (PROAIR 0-24 Puffs ity of HFA) 90 00:00: every 4 [place] mcg/actuati 00 (four) Medica l on inhaler hours as Branc h needed for Wheezing, Shortness of Breath or Chest tightness. cetirizine 2021-06 Yes [id number] 10mg Take 1 [facility] (ZYRTEC) 10 0-24 tablet by ity of mg tablet 00:00: mouth in [place] the Medical morning. Branch albuterol 2021-06 Yes 2{puff} Inhale 2 U n[facility] (PROAIR 0-24 Puffs ity of HFA) 90 00:00: every 4 [place] mcg/actuati 00 (four) Medica l on inhaler hours as Branc h needed for Wheezing, Shortness of Breath or Chest tightness. cetirizine 2021-06 Yes [id number] 10mg Take 1 [facility] (ZYRTEC) 10 0-24 tablet by ity of mg tablet 00:00: mouth in [place] the Medical morning. Branch cetirizine 2021-06 Yes [id number] 10mg Take 1 [facility] (ZYRTEC) 10 0-24 tablet by ity of mg tablet 00:00: mouth in [place] 00 the Medical morning. Branch cetirizine 2021-06 Yes [id number] 10mg Take 1 [facility] (ZYRTEC) 10 0-24 tablet by ity of mg tablet 00:00: mouth in [place] 00 the Medical morning. Branch cetirizine 2021-06 Yes [id number] 10mg Take 1 [facility] (ZYRTEC) 10 0-24 tablet by ity of mg tablet 00:00: mouth in [place] 00 the Medical morning. Branch cetirizine 2021-06 Yes [id number] 10mg Take 1 [facility] (ZYRTEC) 10 0-24 tablet by ity of mg tablet 00:00: mouth in [place] 00 the Medical morning. Branch cetirizine 2021-06 Yes [id number] 10mg Take 1 [facility] (ZYRTEC) 10 0-24 tablet by ity of mg tablet 00:00: mouth in [place] 00 the Medical morning. Branch cetirizine 2021-06 Yes [id number] 10mg Take 1 [facility] (ZYRTEC) 10 0-24 tablet by ity of mg tablet 00:00: mouth in [place] 00 the Medical morning. Branch cetirizine 2021-06 Yes [id number] 10mg Take 1 [facility] (ZYRTEC) 10 0-24 tablet by ity of mg tablet 00:00: mouth in [place] 00 the Medical morning. Branch cetirizine 2021-06 Yes [id number] 10mg Take 1 [facility] (ZYRTEC) 10 0-24 tablet by ity of mg tablet 00:00: mouth in [place] 00 the Medical morning. Branch cetirizine 2021-06 Yes [id number] 10mg Take 1 [facility] (ZYRTEC) 10 0-24 tablet by [facility]y of mg tablet 00:00: mouth in [place] 00 the Medical morning. Branch cetirizine 2021-06 Yes [id number] 10mg Take 1 [facility] (ZYRTEC) 10 0-24 tablet by ity of mg tablet 00:00: mouth in [place] 00 the Medical morning. Branch cetirizine 2021-06 Yes [id number] 10mg Take 1 [facility] (ZYRTEC) 10 0-24 tablet by [facility]y of mg tablet 00:00: mouth in [place] 00 the Medical morning. Branch cetirizine 2021-06 Yes [id number] 10mg Take 1 [facility] (ZYRTEC) 10 0-24 tablet by [facility]y of mg tablet 00:00: mouth in [place] 00 the Medical morning. Branch cetirizine 2021-06 Yes [id number] 10mg Take 1 [facility] (ZYRTEC) 10 0-24 tablet by [facility]y of mg tablet 00:00: mouth in [place] 00 the Medical morning. Branch cetirizine 2021-06 Yes [id number] 10mg Take 1 [facility] (ZYRTEC) 10 0-24 tablet by [facility]y of mg tablet 00:00: mouth in [place] 00 the Medical morning. Branch cetirizine 2021-06 Yes [id number] 10mg Take 1 [facility] (ZYRTEC) 10 0-24 tablet by ity of mg tablet 00:00: mouth in [place] 00 the Medical morning. Branch cetirizine 2021-06 Yes [id number] 10mg Take 1 [facility] (ZYRTEC) 10 0-24 tablet by [facility]y of mg tablet 00:00: mouth in [place] 00 the Medical morning. Branch cetirizine 2021-06 Yes [id number] 10mg Take 1 [facility] (ZYRTEC) 10 0-24 tablet by ity of mg tablet 00:00: mouth in [place] 00 the Medical morning. Branch cetirizine 2021-06 Yes [id number] 10mg Take 1 [facility] (ZYRTEC) 10 0-24 tablet by ity of mg tablet 00:00: mouth in [place] 00 the Medical morning. Branch cetirizine 2021-06 Yes [id number] 10mg Take 1 [facility] (ZYRTEC) 10 0-24 tablet by ity of mg tablet 00:00: mouth in [place] 00 the Medical morning. Branch cetirizine 2021-06 Yes [id number] 10mg Take 1 [facility] (ZYRTEC) 10 0-24 tablet by ity of mg tablet 00:00: mouth in [place] 00 the Medical morning. Branch cetirizine 2021-06 Yes [id number] 10mg Take 1 [facility] (ZYRTEC) 10 0-24 tablet by ity of mg tablet 00:00: mouth in [place] 00 the Medical morning. Branch cetirizine 2021-06 Yes [id number] 10mg Take 1 [facility] (ZYRTEC) 10 0-24 tablet by ity of mg tablet 00:00: mouth in [place] 00 the Medical morning. Branch cetirizine 2021-06 Yes [id number] 10mg Take 1 [facility] (ZYRTEC) 10 0-24 tablet by ity of mg tablet 00:00: mouth in [place] 00 the Medical morning. Branch cetirizine 2021-06 Yes [id number] 10mg Take 1 [facility] (ZYRTEC) 10 0-24 tablet by [facility]y of mg tablet 00:00: mouth in [place] 00 the Medical morning. Branch cetirizine 2021-06 Yes [id number] 10mg Take 1 [facility] (ZYRTEC) 10 0-24 tablet by ity of mg tablet 00:00: mouth in [place] 00 the Medical morning. Branch albuterol 2021-06- No 2{puff} Inhale 2 [facility] (PROAIR 0-24 02-08 Puffs ity of HFA) 90 00:00: 00:00 every 4 [place] mcg/actuati 00 :00 (four) Medica l on inhaler hours as Branc h needed for Wheezing, Shortness of Breath or Chest tightness. benzonatate 2021-06- No [id number] 100mg Take 1 [facility] (TESSALON 0-24 12-06 capsule by ity of PERLES) 100 00:00: 00:00 mouth [place] mg capsule 00 :00 every 8 Medica l (eight) Branch hours as needed for Cough. benzonatate 2021-06- No [id number] 100mg Take 1 [facility] (TESSALON 0-24 12-06 capsule by ity of PERLES) 100 00:00: 00:00 mouth [place] mg capsule 00 :00 every 8 Medica l (eight) Branch hours as needed for Cough. lisdexamfet 2021-06 Yes [id number] Take 1 po [facility] amine 10 mg 0-12 q am for 5 it y of Cap 00:00: days, then increase Medical to 2 po q Branch am lisdexamfet 2021- Yes [id number] Take 1 po [facility] amine 10 mg 0-12 q am for 5 it y of Cap 00:00: days, then increase Medical to 2 po q Branch am lisdexamfet 2021- Yes [id number] Take 1 po [facility] amine 10 mg 0-12 q am for 5 it y of Cap 00:00: days, then increase Medical to 2 po q Branch am lisdexamfet 2021-06 Yes [id number] Take 1 po [facility] amine 10 mg 0-12 q am for 5 it y of Cap 00:00: days, then increase Medical to 2 po q Branch am lisdexamfet 2021-06 Yes [id number] Take 1 po [facility] amine 10 mg 0-12 q am for 5 it y of Cap 00:00: days, then increase Medical to 2 po q Branch am lisdexamfet 2021-06 Yes [id number] Take 1 po [facility] amine 10 mg 0-12 q am for 5 it y of Cap 00:00: days, then increase Medical to 2 po q Branch am lisdexamfet 2021-06 Yes [id number] Take 1 po [facility] amine 10 mg 0-12 q am for 5 it y of Cap 00:00: days, then increase Medical to 2 po q Branch am lisdexamfet 2021- Yes [id number] Take 1 po [facility] amine 10 mg 0-12 q am for 5 it y of Cap 00:00: days, then increase Medical to 2 po q Branch am lisdexamfet 2021- Yes [id number] Take 1 po [facility] amine 10 mg 0-12 q am for 5 it y of Cap 00:00: days, then increase Medical to 2 po q Branch am lisdexamfet 2021- Yes [id number] Take 1 po [facility] amine 10 mg 0-12 q am for 5 it y of Cap 00:00: days, then increase Medical to 2 po q Branch am lisdexamfet 2021- Yes [id number] Take 1 po [facility] amine 10 mg 0-12 q am for 5 it y of Cap 00:00: days, then [place] 00 increase Medical to 2 po q Branch am lisdexamfet 2021-06 Yes [id number] Take 1 po [facility] amine 10 mg 0-12 q am for 5 it y of Cap 00:00: days, then [place] 00 increase Medical to 2 po q Branch am lisdexamfet 1 Yes [id number] Take 1 po [facility] amine 10 mg 0-12 q am for 5 it y of Cap 00:00: days, then [place] increase Medical to 2 po q Branch am lisdexamfet 2021-06- No [id number] Take 1 po [facility] amine 10 mg 0-12 11-01 q am for 5 i ty of Cap 00:00: 00:00 days, then [place] 00 :00 increase Medical to 2 po q Branch am fexofenadin 0 Yes [id number] 180mg Take 1 [facility] e (PENNY 9-16 tablet by ity of ALLERGY) 00:00: mouth in [place] 180 mg 00 the Medical tablet morning. Branch methylpheni 0 Yes [id number] 18mg Take 1 [facility] date HCl 9-16 tablet by ity of (CONCERTA) 00:00: mouth [place] 18 mg 24 hr 00 every Medical tablet morning. Branch fexofenadin 2021-0 Yes [id number] 180mg Take 1 [facility] e (PENNY 9-16 tablet by ity of ALLERGY) 00:00: mouth in [place] 180 mg 00 the Medical tablet morning. Branch fexofenadin 2021-0 Yes [id number] 180mg Take 1 [facility] e (PENNY 9-16 tablet by ity of ALLERGY) 00:00: mouth in [place] 180 mg 00 the Medical tablet morning. Branch fexofenadin 2021-0 Yes [id number] 180mg Take 1 [facility] e (PENNY 9-16 tablet by ity of ALLERGY) 00:00: mouth in [place] 180 mg 00 the Medical tablet morning. Branch fexofenadin 2021-0 Yes [id number] 180mg Take 1 [facility] e (PENNY 9-16 tablet by ity of ALLERGY) 00:00: mouth in [place] 180 mg 00 the Medical tablet morning. Branch fexofenadin 2021-0 Yes [id number] 180mg Take 1 [facility] e (PENNY 9-16 tablet by ity of ALLERGY) 00:00: mouth in [place] 180 mg 00 the Medical tablet morning. Branch fexofenadin 2021-0 Yes [id number] 180mg Take 1 [facility] e (PENNY 9-16 tablet by ity of ALLERGY) 00:00: mouth in [place] 180 mg 00 the Medical tablet morning. Branch fexofenadin 2021-0 Yes [id number] 180mg Take 1 [facility] e (PENNY 9-16 tablet by ity of ALLERGY) 00:00: mouth in [place] 180 mg 00 the Medical tablet morning. Branch fexofenadin 2021-0 Yes [id number] 180mg Take 1 [facility] e (PENNY 9-16 tablet by ity of ALLERGY) 00:00: mouth in [place] 180 mg 00 the Medical tablet morning. Branch fexofenadin 2021-0 Yes [id number] 180mg Take 1 [facility] e (PENNY 9-16 tablet by ity of ALLERGY) 00:00: mouth in [place] 180 mg 00 the Medical tablet morning. Branch fexofenadin 2021-0 Yes [id number] 180mg Take 1 [facility] e (PENNY 9-16 tablet by ity of ALLERGY) 00:00: mouth in [place] 180 mg 00 the Medical tablet morning. Branch fexofenadin 2- No [id number] 180mg Take 1 [facility] e (PENNY 9-16 10-24 tablet by ity of ALLERGY) 00:00: 00:00 mouth [place] 180 mg 00 :00 the Medical tablet morning. Branch fexofenadin 2021-0 2- No [id number] 180mg Take 1 [facility] e (PENNY 9-16 10-24 tablet by ity of ALLERGY) 00:00: 00:00 mouth [place] 180 mg 00 :00 the Medical tablet morning. Branch methylpheni 2021-0 2021- No [id number] 18mg Take 1 [facility] date HCl 9-16 10-12 tablet by ity o f (CONCERTA) 00:00: 00:00 mouth [place] 18 mg 24 hr 00 :00 every Medical tablet morning. Branch methylpheni 2021-0 2- No [id number] 18mg Take 1 [facility] date HCl 9-16 10-12 tablet by ity o f (CONCERTA) 00:00: 00:00 mouth [place] 18 mg 24 hr 00 :00 every Medical tablet morning. Branch amphetamine 2021- 202- No [id number] 15mg Take 1 [facility] -dextroamph 8-16 capsule by will cornejo of etamine 00:00: 00:00 mouth [place] (ADDERALL 00 :00 every Medical XR) 15 mg morning. Branch 24 hr capsule fluticasone 2021-0 Yes [id number] 1{spray Use 1 [facility] propionate 6-28 } [place] in ity o f 50 00:00: each [place] mcg/actuati 00 nostril Medic al on nasal daily. Branch spray azelastine 0 Yes [id number] 1{spray Use 1 [facility] 137 mcg 6-28 } [place] in ity of (0.1 %) 00:00: each [place] nasal spray 00 nostril 2 Med ical (two) Branch times daily. Use in each nostril as directed fluticasone 0 Yes [id number] 1{spray Use 1 [facility] propionate 6-28 } [place] in ity o f 50 00:00: each [place] mcg/actuati 00 nostril Medic al on nasal daily. Branch spray azelastine 0 Yes [id number] 1{spray Use 1 [facility] 137 mcg 6-28 } [place] in ity of (0.1 %) 00:00: each [place] nasal spray 00 nostril 2 Med ical (two) Branch times daily. Use in each nostril as directed fluticasone 2021-0 Yes [id number] 1{spray Use 1 [facility] propionate 6-28 } [place] in ity o f 50 00:00: each [place] mcg/actuati 00 nostril Medic al on nasal daily. Branch spray azelastine 2021-0 Yes [id number] 1{spray Use 1 [facility] 137 mcg 6-28 } [place] in ity of (0.1 %) 00:00: each [place] nasal spray 00 nostril 2 Med ical (two) Branch times daily. Use in each nostril as directed fluticasone 2021-0 Yes [id number] 1{spray Use 1 [facility] propionate 6-28 } [place] in ity o f 50 00:00: each [place] mcg/actuati 00 nostril Medic al on nasal daily. Branch spray azelastine 2021-0 Yes [id number] 1{spray Use 1 [facility] 137 mcg 6-28 } [place] in ity of (0.1 %) 00:00: each [place] nasal spray 00 nostril 2 Med ical (two) Branch times daily. Use in each nostril as directed fluticasone 2021-0 Yes [id number] 1{spray Use 1 [facility] propionate 6-28 } [place] in ity o f 50 00:00: each [place] mcg/actuati 00 nostril Medic al on nasal daily. Branch spray azelastine 2021-0 Yes [id number] 1{spray Use 1 [facility] 137 mcg 6-28 } [place] in ity of (0.1 %) 00:00: each [place] nasal spray 00 nostril 2 Med ical (two) Branch times daily. Use in each nostril as directed fluticasone 2021-0 Yes [id number] 1{spray Use 1 [facility] propionate 6-28 } [place] in ity o f 50 00:00: each [place] mcg/actuati 00 nostril Medic al on nasal daily. Branch spray azelastine 2021-0 Yes [id number] 1{spray Use 1 [facility] 137 mcg 6-28 } [place] in ity of (0.1 %) 00:00: each [place] nasal spray 00 nostril 2 Med ical (two) Branch times daily. Use in each nostril as directed fluticasone 2021-0 Yes [id number] 1{spray Use 1 [facility] propionate 6-28 } [place] in ity o f 50 00:00: each [place] mcg/actuati 00 nostril Medic al on nasal daily. Branch spray azelastine 2021-0 Yes [id number] 1{spray Use 1 [facility] 137 mcg 6-28 } [place] in ity of (0.1 %) 00:00: each [place] nasal spray 00 nostril 2 Med ical (two) Branch times daily. Use in each nostril as directed fluticasone 2021-0 Yes [id number] 1{spray Use 1 [facility] propionate 6-28 } [place] in ity o f 50 00:00: each [place] mcg/actuati 00 nostril Medic al on nasal daily. Branch spray azelastine 2021-0 Yes [id number] 1{spray Use 1 [facility] 137 mcg 6-28 } [place] in ity of (0.1 %) 00:00: each [place] nasal spray 00 nostril 2 Med ical (two) Branch times daily. Use in each nostril as directed fluticasone 2022-0 Yes [id number] 1{spray Use 1 [facility] propionate 6-28 } [place] in ity o f 50 00:00: each [place] mcg/actuati 00 nostril Medic al on nasal daily. Branch spray azelastine 2022-0 Yes [id number] 1{spray Use 1 [facility] 137 mcg 6-28 } [place] in ity of (0.1 %) 00:00: each [place] nasal spray 00 nostril 2 Med ical (two) Branch times daily. Use in each nostril as directed fluticasone 2-0 Yes [id number] 1{spray Use 1 [facility] propionate 6-28 } [place] in ity o f 50 00:00: each [place] mcg/actuati 00 nostril Medic al on nasal daily. Branch spray azelastine 2021-0 Yes [id number] 1{spray Use 1 [facility] 137 mcg 6-28 } [place] in ity of (0.1 %) 00:00: each [place] nasal spray 00 nostril 2 Med ical (two) Branch times daily. Use in each nostril as directed fluticasone 2-0 Yes [id number] 1{spray Use 1 [facility] propionate 6-28 } [place] in ity o f 50 00:00: each [place] mcg/actuati 00 nostril Medic al on nasal daily. Branch spray azelastine 2-0 Yes [id number] 1{spray Use 1 [facility] 137 mcg 6-28 } [place] in ity of (0.1 %) 00:00: each [place] nasal spray 00 nostril 2 Med ical (two) Branch times daily. Use in each nostril as directed fluticasone 2-0 Yes [id number] 1{spray Use 1 [facility] propionate 6-28 } [place] in ity o f 50 00:00: each [place] mcg/actuati 00 nostril Medic al on nasal daily. Branch spray azelastine 2022-0 Yes [id number] 1{spray Use 1 [facility] 137 mcg 6-28 } [place] in ity of (0.1 %) 00:00: each [place] nasal spray 00 nostril 2 Med ical (two) Branch times daily. Use in each nostril as directed fluticasone 2022-0 Yes [id number] 1{spray Use 1 [facility] propionate 6-28 } [place] in it[facility] o f 50 00:00: each [place] mcg/actuati 00 nostril Medic al on nasal daily. Branch spray azelastine 2021-0 Yes [id number] 1{spray Use 1 [facility] 137 mcg 6-28 } [place] ity of (0.1 %) 00:00: each [place] nasal spray 00 nostril 2 Med ical (two) Branch times daily. Use in each nostril as directed fluticasone 2021-0 Yes [id number] 1{spray Use 1 [facility] propionate 6-28 } [place] in ity o f 50 00:00: each [place] mcg/actuati 00 nostril Medic al on nasal daily. Branch spray azelastine 2021-0 Yes [id number] 1{spray Use 1 [facility] 137 mcg 6-28 } [place] in ity of (0.1 %) 00:00: each [place] nasal spray 00 nostril 2 Med ical (two) Branch times daily. Use in each nostril as directed fluticasone 2021-0 Yes [id number] 1{spray Use 1 [facility] propionate 6-28 } [place] in ity o f 50 00:00: each [place] mcg/actuati 00 nostril Medic al on nasal daily. Branch spray azelastine 2021-0 Yes [id number] 1{spray Use 1 [facility] 137 mcg 6-28 } [place] in ity of (0.1 %) 00:00: each [place] nasal spray 00 nostril 2 Med ical (two) Branch times daily. Use in each nostril as directed fluticasone 2021-0 Yes [id number] 1{spray Use 1 [facility] propionate 6-28 } [place] in ity o f 50 00:00: each [place] mcg/actuati 00 nostril Medic al on nasal daily. Branch spray azelastine 2021-0 Yes [id number] 1{spray Use 1 [facility] 137 mcg 6-28 } [place] in ity of (0.1 %) 00:00: each [place] nasal spray 00 nostril 2 Med ical (two) Branch times daily. Use in each nostril as directed fluticasone 2021-0 Yes [id number] 1{spray Use 1 [facility] propionate 6-28 } [place] in ity o f 50 00:00: each [place] mcg/actuati 00 nostril Medic al on nasal daily. Branch spray azelastine 2021-0 Yes [id number] 1{spray Use 1 [facility] 137 mcg 6-28 } [place] [facility]y of (0.1 %) 00:00: each [place] nasal spray 00 nostril 2 Med ical (two) Branch times daily. Use in each nostril as directed fluticasone 2-0 Yes [id number] 1{spray Use 1 [facility] propionate 6-28 } [place] in ity o f 50 00:00: each [place] mcg/actuati 00 nostril Medic al on nasal daily. Branch spray azelastine 2021-0 Yes [id number] 1{spray Use 1 [facility] 137 mcg 6-28 } [place] in [facility]y of (0.1 %) 00:00: each [place] nasal spray 00 nostril 2 Med ical (two) Branch times daily. Use in each nostril as directed fluticasone 2021-0 Yes [id number] 1{spray Use 1 [facility] propionate 6-28 } [place] in ity o f 50 00:00: each [place] mcg/actuati 00 nostril Medic al on nasal daily. Branch spray azelastine 2021-0 Yes [id number] 1{spray Use 1 [facility] 137 mcg 6-28 } [place] in ity of (0.1 %) 00:00: each [place] nasal spray 00 nostril 2 Med ical (two) Branch times daily. Use in each nostril as directed fluticasone 2-0 Yes [id number] 1{spray Use 1 [facility] propionate 6-28 } [place] in ity o f 50 00:00: each [place] mcg/actuati 00 nostril Medic al on nasal daily. Branch spray azelastine 2021-0 Yes [id number] 1{spray Use 1 [facility] 137 mcg 6-28 } [place] ity of (0.1 %) 00:00: each [place] nasal spray 00 nostril 2 Med ical (two) Branch times daily. Use in each nostril as directed fluticasone 2-0 Yes [id number] 1{spray Use 1 [facility] propionate 6-28 } [place] in ity o f 50 00:00: each [place] mcg/actuati 00 nostril Medic al on nasal daily. Branch spray azelastine 2021-0 Yes [id number] 1{spray Use 1 [facility] 137 mcg 6-28 } [place] in ity of (0.1 %) 00:00: each [place] nasal spray 00 nostril 2 Med ical (two) Branch times daily. Use in each nostril as directed fluticasone 2021-0 Yes [id number] 1{spray Use 1 [facility] propionate 6-28 } [place] in ity o f 50 00:00: each [place] mcg/actuati 00 nostril Medic al on nasal daily. Branch spray azelastine 2021-0 Yes [id number] 1{spray Use 1 [facility] 137 mcg 6-28 } [place] in [facility]y of (0.1 %) 00:00: each [place] nasal spray 00 nostril 2 Med ical (two) Branch times daily. Use in each nostril as directed fluticasone 2021-0 Yes [id number] 1{spray Use 1 [facility] propionate 6-28 } [place] in ity o f 50 00:00: each [place] mcg/actuati 00 nostril Medic al on nasal daily. Branch spray azelastine 2021-0 Yes [id number] 1{spray Use 1 [facility] 137 mcg 6-28 } [place] in ity of (0.1 %) 00:00: each [place] nasal spray 00 nostril 2 Med ical (two) Branch times daily. Use in each nostril as directed fluticasone 2021-0 Yes [id number] 1{spray Use 1 [facility] propionate 6-28 } [place] in ity o f 50 00:00: each [place] mcg/actuati 00 nostril Medic al on nasal daily. Branch spray azelastine 2021-0 Yes [id number] 1{spray Use 1 [facility] 137 mcg 6-28 } [place] in ity of (0.1 %) 00:00: each [place] nasal spray 00 nostril 2 Med ical (two) Branch times daily. Use in each nostril as directed fluticasone 2021-0 Yes [id number] 1{spray Use 1 [facility] propionate 6-28 } [place] in ity o f 50 00:00: each [place] mcg/actuati 00 nostril Medic al on nasal daily. Branch spray azelastine 2021-0 Yes [id number] 1{spray Use 1 [facility] 137 mcg 6-28 } [place] in ity of (0.1 %) 00:00: each [place] nasal spray 00 nostril 2 Med ical (two) Branch times daily. Use in each nostril as directed fluticasone 2022-0 Yes [id number] 1{spray Use 1 [facility] propionate 6-28 } [place] in ity o f 50 00:00: each [place] mcg/actuati 00 nostril Medic al on nasal daily. Branch spray azelastine 2022-0 Yes [id number] 1{spray Use 1 [facility] 137 mcg 6-28 } [place] in ity of (0.1 %) 00:00: each [place] nasal spray 00 nostril 2 Med ical (two) Branch times daily. Use in each nostril as directed fluticasone 2-0 Yes [id number] 1{spray Use 1 [facility] propionate 6-28 } [place] in ity o f 50 00:00: each [place] mcg/actuati 00 nostril Medic al on nasal daily. Branch spray azelastine 202-0 Yes [id number] 1{spray Use 1 [facility] 137 mcg 6-28 } [place] in ity of (0.1 %) 00:00: each [place] nasal spray 00 nostril 2 Med ical (two) Branch times daily. Use in each nostril as directed fluticasone 2-0 Yes [id number] 1{spray Use 1 [facility] propionate 6-28 } [place] in ity o f 50 00:00: each [place] mcg/actuati 00 nostril Medic al on nasal daily. Branch spray azelastine 2022-0 Yes [id number] 1{spray Use 1 [facility] 137 mcg 6-28 } [place] in ity of (0.1 %) 00:00: each [place] nasal spray 00 nostril 2 Med ical (two) Branch times daily. Use in each nostril as directed fluticasone 2-0 Yes [id number] 1{spray Use 1 [facility] propionate 6-28 } [place] in ity o f 50 00:00: each [place] mcg/actuati 00 nostril Medic al on nasal daily. Branch spray azelastine 2022-0 Yes [id number] 1{spray Use 1 [facility] 137 mcg 6-28 } [place] in ity of (0.1 %) 00:00: each [place] nasal spray 00 nostril 2 Med ical (two) Branch times daily. Use in each nostril as directed fluticasone 2022-0 Yes [id number] 1{spray Use 1 [facility] propionate 6-28 } [place] in ity o f 50 00:00: each [place] mcg/actuati 00 nostril Medic al on nasal daily. Branch spray azelastine 2021-0 Yes [id number] 1{spray Use 1 [facility] 137 mcg 6-28 } [place] in ity of (0.1 %) 00:00: each [place] nasal spray 00 nostril 2 Med ical (two) Branch times daily. Use in each nostril as directed fluticasone 2021-0 Yes [id number] 1{spray Use 1 [facility] propionate 6-28 } [place] in it[facility] o f 50 00:00: each [place] mcg/actuati 00 nostril Medic al on nasal daily. Branch spray azelastine 2021-0 Yes [id number] 1{spray Use 1 [facility] 137 mcg 6-28 } [place] in ity of (0.1 %) 00:00: each [place] nasal spray 00 nostril 2 Med ical (two) Branch times daily. Use in each nostril as directed fluticasone 2021-0 Yes [id number] 1{spray Use 1 [facility] propionate 6-28 } [place] in it[facility] o f 50 00:00: each [place] mcg/actuati 00 nostril Medic al on nasal daily. Branch spray azelastine 2021-0 Yes [id number] 1{spray Use 1 [facility] 137 mcg 6-28 } [place] in ity of (0.1 %) 00:00: each [place] nasal spray 00 nostril 2 Med ical (two) Branch times daily. Use in each nostril as directed fluticasone 2021-0 Yes [id number] 1{spray Use 1 [facility] propionate 6-28 } [place] in ity o f 50 00:00: each [place] mcg/actuati 00 nostril Medic al on nasal daily. Branch spray azelastine 2021-0 Yes [id number] 1{spray Use 1 [facility] 137 mcg 6-28 } [place] in ity of (0.1 %) 00:00: each [place] nasal spray 00 nostril 2 Med ical (two) Branch times daily. Use in each nostril as directed fluticasone 2021-0 Yes [id number] 1{spray Use 1 [facility] propionate 6-28 } [place] in ity o f 50 00:00: each [place] mcg/actuati 00 nostril Medic al on nasal daily. Branch spray azelastine 2022-0 Yes [id number] 1{spray Use 1 [facility] 137 mcg 6-28 } [place] in ity of (0.1 %) 00:00: each [place] nasal spray 00 nostril 2 Med ical (two) Branch times daily. Use in each nostril as directed fluticasone 2022-0 Yes [id number] 1{spray Use 1 [facility] propionate 6-28 } [place] in ity o f 50 00:00: each [place] mcg/actuati 00 nostril Medic al on nasal daily. Branch spray azelastine 202-0 Yes [id number] 1{spray Use 1 [facility] 137 mcg 6-28 } [place] in ity of (0.1 %) 00:00: each [place] nasal spray 00 nostril 2 Med ical (two) Branch times daily. Use in each nostril as directed fluticasone 2-0 Yes [id number] 1{spray Use 1 [facility] propionate 6-28 } [place] in ity o f 50 00:00: each [place] mcg/actuati 00 nostril Medic al on nasal daily. Branch spray azelastine 2021-0 Yes [id number] 1{spray Use 1 [facility] 137 mcg 6-28 } [place] in ity of (0.1 %) 00:00: each [place] nasal spray 00 nostril 2 Med ical (two) Branch times daily. Use in each nostril as directed fluticasone 2-0 Yes [id number] 1{spray Use 1 [facility] propionate 6-28 } [place] in ity o f 50 00:00: each [place] mcg/actuati 00 nostril Medic al on nasal daily. Branch spray azelastine 2022-0 Yes [id number] 1{spray Use 1 [facility] 137 mcg 6-28 } [place] in ity of (0.1 %) 00:00: each [place] nasal spray 00 nostril 2 Med ical (two) Branch times daily. Use in each nostril as directed fluticasone 2022-0 Yes [id number] 1{spray Use 1 [facility] propionate 6-28 } [place] in it[facility] o f 50 00:00: each [place] mcg/actuati 00 nostril Medic al on nasal daily. Branch spray azelastine 2022-0 Yes [id number] 1{spray Use 1 [facility] 137 mcg 6-28 } [place] in ity of (0.1 %) 00:00: each [place] nasal spray 00 nostril 2 Med ical (two) Branch times daily. Use in each nostril as directed fluticasone 2021-0 Yes [id number] 1{spray Use 1 [facility] propionate 6-28 } [place] in ity o f 50 00:00: each [place] mcg/actuati 00 nostril Medic al on nasal daily. Branch spray azelastine 2021-0 Yes [id number] 1{spray Use 1 [facility] 137 mcg 6-28 } [place] in ity of (0.1 %) 00:00: each [place] nasal spray 00 nostril 2 Med ical (two) Branch times daily. Use in each nostril as directed fluticasone 2021-0 Yes [id number] 1{spray Use 1 [facility] propionate 6-28 } [place] in ity o f 50 00:00: each [place] mcg/actuati 00 nostril Medic al on nasal daily. Branch spray azelastine 2021-0 Yes [id number] 1{spray Use 1 [facility] 137 mcg 6-28 } [place] in ity of (0.1 %) 00:00: each [place] nasal spray 00 nostril 2 Med ical (two) Branch times daily. Use in each nostril as directed fluticasone 2021-0 Yes [id number] 1{spray Use 1 [facility] propionate 6-28 } [place] in ity o f 50 00:00: each [place] mcg/actuati 00 nostril Medic al on nasal daily. Branch spray azelastine 2021-0 Yes [id number] 1{spray Use 1 [facility] 137 mcg 6-28 } [place] in ity of (0.1 %) 00:00: each [place] nasal spray 00 nostril 2 Med ical (two) Branch times daily. Use in each nostril as directed fluticasone 2021-0 Yes [id number] 1{spray Use 1 [facility] propionate 6-28 } [place] in ity o f 50 00:00: each [place] mcg/actuati 00 nostril Medic al on nasal daily. Branch spray azelastine 2021-0 Yes [id number] 1{spray Use 1 [facility] 137 mcg 6-28 } [place] in ity of (0.1 %) 00:00: each [place] nasal spray 00 nostril 2 Med ical (two) Branch times daily. Use in each nostril as directed fluticasone 2022-0 Yes [id number] 1{spray Use 1 [facility] propionate 6-28 } [place] in ity o f 50 00:00: each [place] mcg/actuati 00 nostril Medic al on nasal daily. Branch spray azelastine 2022-0 Yes [id number] 1{spray Use 1 [facility] 137 mcg 6-28 } [place] in ity of (0.1 %) 00:00: each [place] nasal spray 00 nostril 2 Med ical (two) Branch times daily. Use in each nostril as directed fluticasone 2-0 Yes [id number] 1{spray Use 1 [facility] propionate 6-28 } [place] in ity o f 50 00:00: each [place] mcg/actuati 00 nostril Medic al on nasal daily. Branch spray azelastine 2021-0 Yes [id number] 1{spray Use 1 [facility] 137 mcg 6-28 } [place] in ity of (0.1 %) 00:00: each [place] nasal spray 00 nostril 2 Med ical (two) Branch times daily. Use in each nostril as directed fluticasone 2021-0 Yes [id number] 1{spray Use 1 [facility] propionate 6-28 } [place] in ity o f 50 00:00: each [place] mcg/actuati 00 nostril Medic al on nasal daily. Branch spray azelastine 2-0 Yes [id number] 1{spray Use 1 [facility] 137 mcg 6-28 } [place] in ity of (0.1 %) 00:00: each [place] nasal spray 00 nostril 2 Med ical (two) Branch times daily. Use in each nostril as directed fluticasone 2-0 Yes [id number] 1{spray Use 1 [facility] propionate 6-28 } [place] in ity o f 50 00:00: each [place] mcg/actuati 00 nostril Medic al on nasal daily. Branch spray azelastine 2022-0 Yes [id number] 1{spray Use 1 [facility] 137 mcg 6-28 } [place] in ity of (0.1 %) 00:00: each [place] nasal spray 00 nostril 2 Med ical (two) Branch times daily. Use in each nostril as directed fluticasone 2022-0 Yes [id number] 1{spray Use 1 [facility] propionate 6-28 } [place] in ity o f 50 00:00: each [place] mcg/actuati 00 nostril Medic al on nasal daily. Branch spray azelastine 2021-0 Yes [id number] 1{spray Use 1 [facility] 137 mcg 6-28 } [place] in ity of (0.1 %) 00:00: each [place] nasal spray 00 nostril 2 Med ical (two) Branch times daily. Use in each nostril as directed fluticasone 2021-0 Yes [id number] 1{spray Use 1 [facility] propionate 6-28 } [place] in ity o f 50 00:00: each [place] mcg/actuati 00 nostril Medic al on nasal daily. Branch spray azelastine 2021-0 Yes [id number] 1{spray Use 1 [facility] 137 mcg 6-28 } [place] in ity of (0.1 %) 00:00: each [place] nasal spray 00 nostril 2 Med ical (two) Branch times daily. Use in each nostril as directed fluticasone 2021-0 Yes [id number] 1{spray Use 1 [facility] propionate 6-28 } [place] in ity o f 50 00:00: each [place] mcg/actuati 00 nostril Medic al on nasal daily. Branch spray azelastine 2021-0 Yes [id number] 1{spray Use 1 [facility] 137 mcg 6-28 } [place] in ity of (0.1 %) 00:00: each [place] nasal spray 00 nostril 2 Med ical (two) Branch times daily. Use in each nostril as directed fluticasone 2021-0 Yes [id number] 1{spray Use 1 [facility] propionate 6-28 } [place] in ity o f 50 00:00: each [place] mcg/actuati 00 nostril Medic al on nasal daily. Branch spray azelastine 2021-0 Yes [id number] 1{spray Use 1 [facility] 137 mcg 6-28 } [place] in ity of (0.1 %) 00:00: each [place] nasal spray 00 nostril 2 Med ical (two) Branch times daily. Use in each nostril as directed fluticasone 2021-0 Yes [id number] 1{spray Use 1 [facility] propionate 6-28 } [place] in ity o f 50 00:00: each [place] mcg/actuati 00 nostril Medic al on nasal daily. Branch spray azelastine Yes [id number] 1{spray Use 1 [facility] 137 mcg 6-28 } [place] in ity of (0.1 %) 00:00: each [place] nasal spray 00 nostril 2 Med ical (two) Branch times daily. Use in each nostril as directed fluticasone Yes [id number] 1{spray Use 1 [facility] propionate 6-28 } [place] in ity o f 50 00:00: each [place] mcg/actuati 00 nostril Medic al on nasal daily. Branch spray azelastine Yes [id number] 1{spray Use 1 [facility] 137 mcg 6-28 } [place] in ity of (0.1 %) 00:00: each [place] nasal spray 00 nostril 2 Med ical (two) Branch times daily. Use in each nostril as directed cetirizine 2021- No [id number] 10mg Take 1 [facility] (ZYRTEC) 10 6-28 09-16 tablet by it y of mg tablet 00:00: 00:00 mouth [place] 00 :00 daily. Medical Branch albuterol Yes [id number] 2{puff} Inhale 2 [facility] (PROAIR 3-11 Puffs ity of HFA) 90 00:00: every 4 [place] mcg/actuati 00 (four) Medica l on inhaler hours as Branc h needed for Wheezing, Shortness of Breath or Chest tightness. albuterol Yes [id number] 2{puff} Inhale 2 [facility] (PROAIR 3-11 Puffs ity of HFA) 90 00:00: every 4 [place] mcg/actuati 00 (four) Medica l on inhaler hours as Branc h needed for Wheezing, Shortness of Breath or Chest tightness. albuterol Yes [id number] 2{puff} Inhale 2 [facility] (PROAIR 3-11 Puffs ity of HFA) 90 00:00: every 4 [place] mcg/actuati 00 (four) Medica l on inhaler hours as Branc h needed for Wheezing, Shortness of Breath or Chest tightness. albuterol Yes [id number] 2{puff} Inhale 2 [facility] (PROAIR 3-11 Puffs ity of HFA) 90 00:00: every 4 [place] mcg/actuati 00 (four) Medica l on inhaler hours as Branc h needed for Wheezing, Shortness of Breath or Chest tightness. albuterol 0 Yes [id number] 2{puff} Inhale 2 [facility] (PROAIR 3-11 Puffs ity of HFA) 90 00:00: every 4 [place] mcg/actuati 00 (four) Medica l on inhaler hours as Branc h needed for Wheezing, Shortness of Breath or Chest tightness. albuterol 0 Yes [id number] 2{puff} Inhale 2 [facility] (PROAIR 3-11 Puffs ity of HFA) 90 00:00: every 4 [place] mcg/actuati 00 (four) Medica l on inhaler hours as Branc h needed for Wheezing, Shortness of Breath or Chest tightness. albuterol 0 Yes [id number] 2{puff} Inhale 2 [facility] (PROAIR 3-11 Puffs ity of HFA) 90 00:00: every 4 [place] mcg/actuati 00 (four) Medica l on inhaler hours as Branc h needed for Wheezing, Shortness of Breath or Chest tightness. albuterol 0 Yes [id number] 2{puff} Inhale 2 [facility] (PROAIR 3-11 Puffs ity of HFA) 90 00:00: every 4 [place] mcg/actuati 00 (four) Medica l on inhaler hours as Branc h needed for Wheezing, Shortness of Breath or Chest tightness. albuterol 0 Yes [id number] 2{puff} Inhale 2 [facility] (PROAIR 3-11 Puffs ity of HFA) 90 00:00: every 4 [place] mcg/actuati 00 (four) Medica l on inhaler hours as Branc h needed for Wheezing, Shortness of Breath or Chest tightness. albuterol 0 Yes [id number] 2{puff} Inhale 2 [facility] (PROAIR 3-11 Puffs ity of HFA) 90 00:00: every 4 [place] mcg/actuati 00 (four) Medica l on inhaler hours as Branc h needed for Wheezing, Shortness of Breath or Chest tightness. albuterol 0 Yes [id number] 2{puff} Inhale 2 [facility] (PROAIR 3-11 Puffs ity of HFA) 90 00:00: every 4 [place] mcg/actuati 00 (four) Medica l on inhaler hours as Branc h needed for Wheezing, Shortness of Breath or Chest tightness. albuterol 2021-0 Yes [id number] 2{puff} Inhale 2 [facility] (PROAIR 3-11 Puffs ity of HFA) 90 00:00: every 4 [place] mcg/actuati 00 (four) Medica l on inhaler hours as Branc h needed for Wheezing, Shortness of Breath or Chest tightness. albuterol 0 2- No [id number] 2{puff} Inhale 2 [facility] (PROAIR 3-11 10-24 Puffs ity of HFA) 90 00:00: 00:00 every 4 [place] mcg/actuati 00 :00 (four) Medica l on inhaler hours as Branc h needed for Wheezing, Shortness of Breath or Chest tightness. albuterol 0 2- No [id number] 2{puff} Inhale 2 [facility] (PROAIR 3-11 10-24 Puffs ity of HFA) 90 00:00: 00:00 every 4 [place] mcg/actuati 00 :00 (four) Medica l on inhaler hours as Branc h needed for Wheezing, Shortness of Breath or Chest tightness. IBUPROFEN 0 Yes Take by [facility] rs ORAL 3-04 mouth. ity of 09:18: [address] ACETAMINOPH 0 Yes Take by Uni vers EN ORAL 3-04 mouth. ity of 09:18: [address] IBUPROFEN 2021-0 Yes Take by [facility] ORAL 3-04 mouth. ity of 09:18: [address] ACETAMINOPH 0 Yes Take by Uni vers EN ORAL 3-04 mouth. ity of 09:18: [address] IBUPROFEN 2021-0 Yes Take by [facility] ORAL 3-04 mouth. ity of 09:18: [address] ACETAMINOPH 0 Yes Take by Uni vers EN ORAL 3-04 mouth. ity of 09:18: [address] IBUPROFEN 2022-0 Yes Take by Un[facility] rs ORAL 3-04 mouth. ity of 09:18: [place] [id number] Medical Branch ACETAMINOPH 2-0 Yes Take by [facility] EN ORAL 3-04 mouth. ity of 09:18: [place] [address] [facility] IBUPROFEN 2022-0 Yes Take by [facility] rs ORAL 3-04 mouth. ity of 09:18: [place] [address] [facility] ACETAMINOPH 2-0 Yes Take by [facility] vers EN ORAL 3-04 mouth. ity of 09:18: [place] [address] [facility] IBUPROFEN 2022-0 Yes Take by [facility] rs ORAL 3-04 mouth. ity of 09:18: [place] [address] [facility] ACETAMINOPH 2-0 Yes Take by [facility] vers EN ORAL 3-04 mouth. ity of 09:18: [place] [address] [facility] IBUPROFEN 2-0 Yes Take by [facility] rs ORAL 3-04 mouth. ity of 09:18: [place] [address] [facility] ACETAMINOPH 2-0 Yes Take by [facility] vers EN ORAL 3-04 mouth. ity of 09:18: [place] [address] [facility] IBUPROFEN 2-0 Yes Take by [facility] rs ORAL 3-04 mouth. ity of 09:18: [place] [address] [facility] ACETAMINOPH 2-0 Yes Take by [facility] vers EN ORAL 3-04 mouth. ity of 09:18: [place] [address] [facility] IBUPROFEN 2-0 Yes Take by [facility] rs ORAL 3-04 mouth. ity of 09:18: [place] [address] [facility] ACETAMINOPH 2-0 Yes Take by [facility] vers EN ORAL 3-04 mouth. ity of 09:18: [place] [address] [facility] IBUPROFEN 2022-0 Yes Take by [facility] rs ORAL 3-04 mouth. ity of 09:18: [place] [address] [facility] ACETAMINOPH 2-0 Yes Take by [facility] vers EN ORAL 3-04 mouth. ity of 09:18: [place] [address] [facility] IBUPROFEN 2022-0 Yes Take by [facility] rs ORAL 3-04 mouth. ity of 09:18: [place] [address] [facility] ACETAMINOPH 2-0 Yes Take by [facility] vers EN ORAL 3-04 mouth. ity of 09:18: [place] [address] [facility] IBUPROFEN 2022-0 Yes Take by [facility] rs ORAL 3-04 mouth. ity of 09:18: [place] [address] [facility] ACETAMINOPH 2022-0 Yes Take by [facility] vers EN ORAL 3-04 mouth. ity of 09:18: [place] [address] [facility] IBUPROFEN 2022-0 Yes Take by [facility] rs ORAL 3-04 mouth. ity of 09:18: [place] [address] [facility] ACETAMINOPH 2021-0 Yes Take by [facility] vers EN ORAL 3-04 mouth. ity of 09:18: [place] [address] [facility] IBUPROFEN 2021-0 Yes Take by [facility] rs ORAL 3-04 mouth. ity of 09:18: [place] [address] [facility] ACETAMINOPH 2021-0 Yes Take by [facility] vers EN ORAL 3-04 mouth. ity of 09:18: [place] [address] [facility] IBUPROFEN 2021-0 Yes Take by [facility] rs ORAL 3-04 mouth. ity of 09:18: [place] [address] [facility] ACETAMINOPH 2021-0 Yes Take by [facility] vers EN ORAL 3-04 mouth. ity of 09:18: [place] [address] [facility] IBUPROFEN 2021-0 Yes Take by [facility] rs ORAL 3-04 mouth. ity of 09:18: [place] [address] [facility] ACETAMINOPH 2021-0 Yes Take by [facility] vers EN ORAL 3-04 mouth. ity of 09:18: [place] [address] [facility] IBUPROFEN 2021-0 Yes Take by [facility] rs ORAL 3-04 mouth. ity of 09:18: [place] [address] [facility] ACETAMINOPH 2021-0 Yes Take by [facility] vers EN ORAL 3-04 mouth. ity of 09:18: [place] [address] [facility] IBUPROFEN 2021-0 Yes Take by [facility] rs ORAL 3-04 mouth. ity of 09:18: [place] [address] [facility] ACETAMINOPH 2021-0 Yes Take by [facility] vers EN ORAL 3-04 mouth. ity of 09:18: [place] [address] [facility] IBUPROFEN 2021-0 Yes Take by [facility] rs ORAL 3-04 mouth. ity of 09:18: [place] [address] [facility] ACETAMINOPH 2021-0 Yes Take by [facility] vers EN ORAL 3-04 mouth. ity of 09:18: [place] [address] [facility] IBUPROFEN 2021-0 Yes Take by [facility] rs ORAL 3-04 mouth. ity of 09:18: [place] [address] [facility] ACETAMINOPH 2021-0 Yes Take by [facility] vers EN ORAL 3-04 mouth. ity of 09:18: [place] [address] [facility] IBUPROFEN 2021-0 Yes Take by [facility] rs ORAL 3-04 mouth. ity of 09:18: [place] [facility] ACETAMINOPH 2021-0 Yes Take by [facility] vers EN ORAL 3-04 mouth. ity of 09:18: [place] [facility] IBUPROFEN 2021-0 Yes Take by [facility] rs ORAL 3-04 mouth. ity of 09:18: [place] [facility] ACETAMINOPH 2021-0 Yes Take by [facility] vers EN ORAL 3-04 mouth. ity of 09:18: [place] [facility] IBUPROFEN 2021-0 Yes Take by [facility] rs ORAL 3-04 mouth. ity of 09:18: [place] [facility] ACETAMINOPH 2021-0 Yes Take by [facility] vers EN ORAL 3-04 mouth. ity of 09:18: [place] [facility] ACETAMINOPH 2021-0 Yes Take by [facility] vers EN ORAL 3-04 mouth. ity of 09:18: [place] [facility] ACETAMINOPH 2021-0 Yes Take by [facility] vers EN ORAL 3-04 mouth. ity of 09:18: [place] [address] [facility] ACETAMINOPH 2021-0 Yes Take by [facility] vers EN ORAL 3-04 mouth. ity of 09:18: [place] [address] [facility] ACETAMINOPH 2021-0 Yes Take by [facility] vers EN ORAL 3-04 mouth. ity of 09:18: [place] [address] [facility] ACETAMINOPH 2021-0 Yes Take by [facility] vers EN ORAL 3-04 mouth. ity of 09:18: [place] [address] [facility] ACETAMINOPH 2021-0 Yes Take by [facility] vers EN ORAL 3-04 mouth. ity of 09:18: [place] [address] [facility] ACETAMINOPH 2021-0 Yes Take by [facility] vers EN ORAL 3-04 mouth. ity of 09:18: [place] [facility] ACETAMINOPH 2021-0 Yes Take by [facility] vers EN ORAL 3-04 mouth. ity of 09:18: [place] [facility] ACETAMINOPH 2021-0 Yes Take by [facility] vers EN ORAL 3-04 mouth. ity of 09:18: [place] [address] [facility] ACETAMINOPH 2021-0 Yes Take by [facility] vers EN ORAL 3-04 mouth. ity of 09:18: [place] [address] [facility] ACETAMINOPH 2021-0 Yes Take by [facility] vers EN ORAL 3-04 mouth. ity of 09:18: [place] [facility] ACETAMINOPH 2021-0 Yes Take by [facility] vers EN ORAL 3-04 mouth. ity of 09:18: [place] [facility] ACETAMINOPH 2021-0 Yes Take by [facility] vers EN ORAL 3-04 mouth. ity of 09:18: [place] [facility] ACETAMINOPH 2021-0 Yes Take by [facility] EN ORAL 3-04 mouth. ity of 09:18: [place] [facility] ACETAMINOPH 2021-0 Yes Take by [facility] vers EN ORAL 3-04 mouth. ity of 09:18: [place] [facility] ACETAMINOPH 2021-0 Yes Take by [facility] vers EN ORAL 3-04 mouth. ity of 09:18: [place] [facility] ACETAMINOPH 2021-0 Yes Take by Un german EN ORAL 3-04 mouth. ity of 09:18: [place] [facility] ACETAMINOPH 2021-0 Yes Take by [facility] vers EN ORAL 3-04 mouth. ity of 09:18: [place] [facility] ACETAMINOPH 2021-0 Yes Take by [facility] EN ORAL 3-04 mouth. ity of 09:18: [place] [facility] ACETAMINOPH 2021-0 Yes Take by [facility] EN ORAL 3-04 mouth. ity of 09:18: [place] [facility] ACETAMINOPH 2021-0 Yes Take by [facility] EN ORAL 3-04 mouth. ity of 09:18: [place] [facility] ACETAMINOPH 2021-0 Yes Take by [facility] EN ORAL 3-04 mouth. ity of 09:18: [place] [facility] ACETAMINOPH 2021-0 Yes Take by [facility] EN ORAL 3-04 mouth. ity of 09:18: [place] [facility] ACETAMINOPH 2021-0 Yes Take by [facility] EN ORAL 3-04 mouth. ity of 09:18: [place] [facility] ACETAMINOPH 2021-0 Yes Take by [facility] EN ORAL 3-04 mouth. ity of 09:18: [place] [facility] ACETAMINOPH 2021-0 Yes Take by [facility] EN ORAL 3-04 mouth. ity of 09:18: [place] [facility] ACETAMINOPH 2021-0 Yes Take by [facility] vers EN ORAL 3-04 mouth. ity of 09:18: [place] [facility] ACETAMINOPH 2021-0 Yes Take by [facility] EN ORAL 3-04 mouth. ity of 09:18: [place] [facility] ACETAMINOPH 2021-0 Yes Take by [facility] EN ORAL 3-04 mouth. ity of 09:18: [place] [facility] omeprazole 2-0 Yes [id number] 20mg Take 1 U nivers 20 mg 2-23 capsule by ity of capsule 00:00: mouth [place] 00 daily. [facility] omeprazole 2021-0 Yes [id number] 20mg Take 1 [facility] nivers 20 mg 2-23 capsule by ity of capsule 00:00: mouth [place] 00 daily. [facility] omeprazole 2021-0 Yes [id number] 20mg Take 1 [facility] nivers 20 mg 2-23 capsule by ity of capsule 00:00: mouth [place] 00 daily. [facility] omeprazole 2021-0 Yes [id number] 20mg Take 1 [facility]ivers 20 mg 2-23 capsule by ity of capsule 00:00: mouth [place] 00 daily. [facility] omeprazole 2021-0 Yes [id number] 20mg Take 1 [facility] 20 mg 2-23 capsule by ity of capsule 00:00: mouth [place] 00 daily. [facility] omeprazole 2021-0 Yes [id number] 20mg Take 1 [facility] nivers 20 mg 2-23 capsule by ity of capsule 00:00: mouth [place] 00 daily. [facility] omeprazole 2021-0 Yes [id number] 20mg Take 1 [facility]ivers 20 mg 2-23 capsule by ity of capsule 00:00: mouth [place] 00 daily. [facility] omeprazole 2-0 Yes [id number] 20mg Take 1 [facility] nivers 20 mg 2-23 capsule by ity of capsule 00:00: mouth [place] 00 daily. [facility] omeprazole 2-0 Yes [id number] 20mg Take 1 [facility] nivers 20 mg 2-23 capsule by ity of capsule 00:00: mouth [place] 00 daily. [facility] omeprazole 2-0 Yes [id number] 20mg Take 1 [facility] nivers 20 mg 2-23 capsule by ity of capsule 00:00: mouth [place] 00 daily. [facility] omeprazole 2-0 Yes [id number] 20mg Take 1 [facility] nivers 20 mg 2-23 capsule by ity of capsule 00:00: mouth [place] 00 daily. [facility] omeprazole 2-0 Yes [id number] 20mg Take 1 [facility]ivers 20 mg 2-23 capsule by ity of capsule 00:00: mouth [place] 00 daily. [facility] omeprazole 2022-0 Yes [id number] 20mg Take 1 [facility] 20 mg 2-23 capsule by ity of capsule 00:00: mouth [place] 00 daily. [facility] omeprazole 2-0 Yes [id number] 20mg Take 1 [facility] 20 mg 2-23 capsule by ity of capsule 00:00: mouth [place] 00 daily. [facility] omeprazole 2-0 Yes [id number] 20mg Take 1 [facility] 20 mg 2-23 capsule by ity of capsule 00:00: mouth [place] 00 daily. [facility] omeprazole 2-0 Yes [id number] 20mg Take 1 [facility] 20 mg 2-23 capsule by ity of capsule 00:00: mouth [place] 00 daily. [facility] omeprazole 2-0 Yes [id number] 20mg Take 1 [facility] 20 mg 2-23 capsule by ity of capsule 00:00: mouth [place] 00 daily. [facility] omeprazole 2-0 Yes [id number] 20mg Take 1 [facility] 20 mg 2-23 capsule by ity of capsule 00:00: mouth [place] 00 daily. [facility] omeprazole 2-0 Yes [id number] 20mg Take 1 [facility] 20 mg 2-23 capsule by ity of capsule 00:00: mouth [place] 00 daily. [facility] omeprazole 2-0 Yes [id number] 20mg Take 1 [facility] 20 mg 2-23 capsule by ity of capsule 00:00: mouth [place] 00 daily. [facility] omeprazole 2-0 Yes [id number] 20mg Take 1 [facility] 20 mg 2-23 capsule by ity of capsule 00:00: mouth [place] 00 daily. [facility] omeprazole 2-0 Yes [id number] 20mg Take 1 [facility] 20 mg 2-23 capsule by ity of capsule 00:00: mouth [place] 00 daily. [facility] omeprazole 2-0 Yes [id number] 20mg Take 1 [facility] 20 mg 2-23 capsule by ity of capsule 00:00: mouth [place] 00 daily. [facility] omeprazole 2022-0 Yes [id number] 20mg Take 1 [facility] 20 mg 2-23 capsule by ity of capsule 00:00: mouth [place] 00 daily. [facility] omeprazole 2-0 Yes [id number] 20mg Take 1 [facility] 20 mg 2-23 capsule by ity of capsule 00:00: mouth [place] 00 daily. [facility] omeprazole 2-0 Yes [id number] 20mg Take 1 [facility] 20 mg 2-23 capsule by ity of capsule 00:00: mouth [place] 00 daily. [facility] omeprazole 2-0 Yes [id number] 20mg Take 1 [facility] 20 mg 2-23 capsule by ity of capsule 00:00: mouth [place] 00 daily. [facility] omeprazole 2-0 Yes [id number] 20mg Take 1 [facility] 20 mg 2-23 capsule by ity of capsule 00:00: mouth [place] 00 daily. [facility] omeprazole 2021-0 Yes [id number] 20mg Take 1 [facility] 20 mg 2-23 capsule by ity of capsule 00:00: mouth [place] 00 daily. [facility] omeprazole 2021-0 Yes [id number] 20mg Take 1 [facility] 20 mg 2-23 capsule by ity of capsule 00:00: mouth [place] 00 daily. [facility] omeprazole 2-0 Yes [id number] 20mg Take 1 [facility] 20 mg 2-23 capsule by ity of capsule 00:00: mouth [place] 00 daily. [facility] omeprazole 2-0 Yes [id number] 20mg Take 1 [facility] 20 mg 2-23 capsule by ity of capsule 00:00: mouth [place] 00 daily. [facility] omeprazole 2-0 Yes [id number] 20mg Take 1 [facility] 20 mg 2-23 capsule by ity of capsule 00:00: mouth [place] 00 daily. [facility] omeprazole 2-0 Yes [id number] 20mg Take 1 [facility] 20 mg 2-23 capsule by ity of capsule 00:00: mouth [place] 00 daily. [facility] omeprazole 2-0 Yes [id number] 20mg Take 1 [facility] 20 mg 2-23 capsule by ity of capsule 00:00: mouth [place] 00 daily. [facility] omeprazole 2-0 Yes [id number] 20mg Take 1 [facility] 20 mg 2-23 capsule by ity of capsule 00:00: mouth [place] 00 daily. [facility] omeprazole 2-0 Yes [id number] 20mg Take 1 [facility] 20 mg 2-23 capsule by ity of capsule 00:00: mouth [place] 00 daily. [facility] omeprazole 2022-0 Yes [id number] 20mg Take 1 [facility] 20 mg 2-23 capsule by ity of capsule 00:00: mouth [place] 00 daily. [facility] omeprazole 2-0 Yes [id number] 20mg Take 1 [facility] 20 mg 2-23 capsule by ity of capsule 00:00: mouth [place] 00 daily. [facility] omeprazole 2-0 Yes [id number] 20mg Take 1 [facility] 20 mg 2-23 capsule by ity of capsule 00:00: mouth [place] 00 daily. [facility] omeprazole 2-0 Yes [id number] 20mg Take 1 [facility] 20 mg 2-23 capsule by ity of capsule 00:00: mouth [place] 00 daily. [facility] omeprazole 2-0 Yes [id number] 20mg Take 1 [facility] 20 mg 2-23 capsule by ity of capsule 00:00: mouth [place] 00 daily. [facility] omeprazole 2-0 Yes [id number] 20mg Take 1 [facility] 20 mg 2-23 capsule by ity of capsule 00:00: mouth [place] 00 daily. [facility] omeprazole 2-0 Yes [id number] 20mg Take 1 [facility] 20 mg 2-23 capsule by ity of capsule 00:00: mouth [place] 00 daily. [facility] omeprazole 2-0 Yes [id number] 20mg Take 1 [facility] 20 mg 2-23 capsule by ity of capsule 00:00: mouth [place] 00 daily. [facility] omeprazole 2-0 Yes [id number] 20mg Take 1 [facility] 20 mg 2-23 capsule by ity of capsule 00:00: mouth [place] 00 daily. [facility] omeprazole 2-0 Yes [id number] 20mg Take 1 [facility] 20 mg 2-23 capsule by ity of capsule 00:00: mouth [place] 00 daily. [facility] omeprazole 2-0 Yes [id number] 20mg Take 1 [facility] 20 mg 2-23 capsule by ity of capsule 00:00: mouth [place] 00 daily. [facility] omeprazole 2022-0 Yes [id number] 20mg Take 1 [facility] 20 mg 2-23 capsule by ity of capsule 00:00: mouth [place] 00 daily. [facility] omeprazole 2-0 Yes [id number] 20mg Take 1 [facility] 20 mg 2-23 capsule by ity of capsule 00:00: mouth [place] 00 daily. [facility] omeprazole 2021-0 Yes [id number] 20mg Take 1 [facility] 20 mg 2-23 capsule by ity of capsule 00:00: mouth [place] 00 daily. [facility] omeprazole 2021-0 Yes [id number] 20mg Take 1 [facility] 20 mg 2-23 capsule by ity of capsule 00:00: mouth [place] 00 daily. [facility] naproxen 0 Yes TAKE 1 [facility] 500 mg 2-01 TABLET BY ity of tablet 00:00: MOUTH 00 TWICE Medical DAILY Branch NEEDED FOR PAIN FOR 4 DAYS naproxen Yes TAKE 1 [facility] 500 mg 2-01 TABLET BY ity of tablet 00:00: MOUTH 00 TWICE [facility] DAILY Branch NEEDED FOR PAIN FOR 4 DAYS naproxen 0 Yes TAKE 1 [facility] 500 mg 2-01 TABLET BY ity of tablet 00:00: MOUTH 00 TWICE [facility] DAILY Branch NEEDED FOR PAIN FOR 4 DAYS naproxen 0 Yes TAKE 1 [facility] 500 mg 2-01 TABLET BY ity of tablet 00:00: MOUTH 00 TWICE [facility] DAILY Branch NEEDED FOR PAIN FOR 4 DAYS naproxen 0 Yes TAKE 1 [facility] 500 mg 2-01 TABLET BY ity of tablet 00:00: MOUTH 00 TWICE [facility] DAILY Branch NEEDED FOR PAIN FOR 4 DAYS naproxen 0 Yes TAKE 1 [facility] 500 mg 2-01 TABLET BY ity of tablet 00:00: MOUTH 00 TWICE [facility] DAILY Branch NEEDED FOR PAIN FOR 4 DAYS naproxen 0 Yes TAKE 1 [facility] 500 mg 2-01 TABLET BY ity of tablet 00:00: MOUTH 00 TWICE [facility] DAILY Branch NEEDED FOR PAIN FOR 4 DAYS naproxen 0 Yes TAKE 1 [facility] 500 mg 2-01 TABLET BY ity of tablet 00:00: MOUTH 00 TWICE [facility] DAILY Branch NEEDED FOR PAIN FOR 4 DAYS naproxen 0 Yes TAKE 1 [facility] 500 mg 2-01 TABLET BY ity of tablet 00:00: MOUTH 00 TWICE [facility] DAILY Branch NEEDED FOR PAIN FOR 4 DAYS naproxen 0 Yes TAKE 1 [facility] 500 mg 2-01 TABLET BY ity of tablet 00:00: MOUTH 00 TWICE [facility] DAILY [facility] NEEDED FOR PAIN FOR 4 DAYS naproxen 0 Yes TAKE 1 [facility] 500 mg 2-01 TABLET BY ity of tablet 00:00: MOUTH 00 TWICE [facility] DAILY Branch NEEDED FOR PAIN FOR 4 DAYS naproxen 0 Yes TAKE 1 [facility] 500 mg 2-01 TABLET BY ity of tablet 00:00: MOUTH 00 TWICE [facility] DAILY Branch NEEDED FOR PAIN FOR 4 DAYS naproxen 0 Yes TAKE 1 [facility] 500 mg 2-01 TABLET BY ity of tablet 00:00: MOUTH 00 TWICE [facility] DAILY Branch NEEDED FOR PAIN FOR 4 DAYS naproxen 0 Yes TAKE 1 [facility] 500 mg 2-01 TABLET BY ity of tablet 00:00: MOUTH 00 TWICE [facility] DAILY Branch NEEDED FOR PAIN FOR 4 DAYS naproxen 0 Yes TAKE 1 [facility] 500 mg 2-01 TABLET BY ity of tablet 00:00: MOUTH 00 TWICE [facility] DAILY Branch NEEDED FOR PAIN FOR 4 DAYS naproxen 0 Yes TAKE 1 [facility] 500 mg 2-01 TABLET BY ity of tablet 00:00: MOUTH 00 TWICE Medical DAILY Branch NEEDED FOR PAIN FOR 4 DAYS naproxen 0 Yes TAKE 1 [facility] 500 mg 2-01 TABLET BY ity of tablet 00:00: MOUTH 00 TWICE [facility] DAILY [facility] NEEDED FOR PAIN FOR 4 DAYS naproxen 0 Yes TAKE 1 [facility] 500 mg 2-01 TABLET BY ity of tablet 00:00: MOUTH 00 TWICE Medical DAILY Branch NEEDED FOR PAIN FOR 4 DAYS naproxen 0 Yes TAKE 1 [facility] 500 mg 2-01 TABLET BY ity of tablet 00:00: MOUTH 00 TWICE Medical DAILY Branch NEEDED FOR PAIN FOR 4 DAYS naproxen 0 Yes TAKE 1 [facility] 500 mg 2-01 TABLET BY ity of tablet 00:00: MOUTH 00 TWICE Medical DAILY Branch NEEDED FOR PAIN FOR 4 DAYS naproxen 0 Yes TAKE 1 [facility] 500 mg 2-01 TABLET BY ity of tablet 00:00: MOUTH 00 TWICE Medical DAILY Branch NEEDED FOR PAIN FOR 4 DAYS naproxen 0 Yes TAKE 1 [facility] 500 mg 2-01 TABLET BY ity of tablet 00:00: MOUTH 00 TWICE Medical DAILY [facility] NEEDED FOR PAIN FOR 4 DAYS naproxen 0 Yes TAKE 1 [facility] 500 mg 2-01 TABLET BY ity of tablet 00:00: MOUTH [place] 00 TWICE Medical DAILY Branch NEEDED FOR PAIN FOR 4 DAYS naproxen 2021-0 3- No TAKE 1 [facility] 500 mg 07-06 TABLET BY ity of tablet 00:00: 00:00 MOUTH [place] 00 :00 TWICE Medical DAILY Branch NEEDED FOR PAIN FOR 4 DAYS naproxen 2021-0 3- No TAKE 1 [facility] 500 mg 07-06 TABLET BY ity of tablet 00:00: 00:00 MOUTH [place] 00 :00 TWICE Medical DAILY Branch NEEDED FOR PAIN FOR 4 DAYS dicyclomine 2020-0 Yes 10mg Take 10 mg [facility] 10 mg 1-20 by mouth. ity of capsule 00:00: [place] [facility] dicyclomine 2020-0 Yes 10mg Take 10 mg [facility] 10 mg 1-20 by mouth. ity of capsule 00:00: [place] [facility] dicyclomine 2020-0 Yes 10mg Take 10 mg [facility] 10 mg 1-20 by mouth. ity of capsule 00:00: [place] [facility] dicyclomine 2020-0 Yes 10mg Take 10 mg [facility] 10 mg 1-20 by mouth. ity of capsule 00:00: [place] [facility] dicyclomine 2020-0 Yes 10mg Take 10 mg [facility] 10 mg 1-20 by mouth. ity of capsule 00:00: [place] [facility] dicyclomine 2020-0 Yes 10mg Take 10 mg [facility] 10 mg 1-20 by mouth. ity of capsule 00:00: [place] [facility] dicyclomine 2020-0 Yes 10mg Take 10 mg [facility] 10 mg 1-20 by mouth. ity of capsule 00:00: [place] [facility] dicyclomine 2020-0 Yes 10mg Take 10 mg [facility] 10 mg 1-20 by mouth. ity of capsule 00:00: [place] [facility] dicyclomine 2020-0 Yes 10mg Take 10 mg [facility] 10 mg 1-20 by mouth. ity of capsule 00:00: [place] [facility] dicyclomine 2020-0 Yes 10mg Take 10 mg [facility] 10 mg 1-20 by mouth. ity of capsule 00:00: [place] [address] [facility] dicyclomine 2020-0 Yes 10mg Take 10 mg [facility] 10 mg 1-20 by mouth. ity of capsule 00:00: [place] [facility] dicyclomine 0 Yes 10mg Take 10 mg [facility] 10 mg 1-20 by mouth. ity of capsule 00:00: [place] [facility] dicyclomine 0 Yes 10mg Take 10 mg [facility] 10 mg 1-20 by mouth. ity of capsule 00:00: [place] [facility] dicyclomine 0 Yes 10mg Take 10 mg [facility] 10 mg 1-20 by mouth. ity of capsule 00:00: [place] [facility] dicyclomine 0 Yes 10mg Take 10 mg [facility] 10 mg 1-20 by mouth. ity of capsule 00:00: [place] [facility] dicyclomine 0 Yes 10mg Take 10 mg [facility] 10 mg 1-20 by mouth. ity of capsule 00:00: [place] [facility] dicyclomine 0 Yes 10mg Take 10 mg [facility] 10 mg 1-20 by mouth. ity of capsule 00:00: [place] [facility] dicyclomine 0 Yes 10mg Take 10 mg [facility] 10 mg 1-20 by mouth. ity of capsule 00:00: [place] [facility] dicyclomine 0 Yes 10mg Take 10 mg [facility] 10 mg 1-20 by mouth. ity of capsule 00:00: [place] [facility] dicyclomine 0 Yes 10mg Take 10 mg [facility] 10 mg 1-20 by mouth. ity of capsule 00:00: [place] [facility] dicyclomine 2020-0 2- No 10mg Take 10 mg [facility] 10 mg 1-20 12 by mouth. ity of capsule 00:00: 00:00 [place] 00 :00 [facility] dicyclomine 0 2- No 10mg Take 10 mg [facility] 10 mg 1-20 12 by mouth. ity of capsule 00:00: 00:00 [place] 00 :00 [facility] Immunizations Ordered Immunization Filled Date Status Comments Sour ce Name Immunization Name Influenza Virus 2021-03-01 Completed [facility] Vaccine [facility] IM 3+ 00:00:00 [facility] Influenza Virus 2021-03-01 Completed [facility] of Vaccine Quad IM 3+ 00:00:00 [facility] Influenza Virus 2021-03-01 Completed [facility] of Vaccine Quad IM 3+ 00:00:00 [facility] Influenza Virus 2021-03-01 Completed [facility] y of Vaccine Quad IM 3+ 00:00:00 [facility] Influenza Virus 2021-03-01 Completed [facility] y of Vaccine Quad IM 3+ 00:00:00 [facility] Influenza Virus 2021-03-01 Completed [facility] of Vaccine Quad IM 3+ 00:00:00 [facility] Influenza Virus 2021-03-01 Completed [facility] of Vaccine Quad IM 3+ 00:00:00 [facility] Influenza Virus 2021-03-01 Completed [facility] of Vaccine Quad IM 3+ 00:00:00 [facility] Influenza Virus 2021-03-01 Completed [facility] y of Vaccine Quad IM 3+ 00:00:00 [facility] Influenza Virus 2021-03-01 Completed [facility] y of Vaccine Quad IM 3+ 00:00:00 [facility] Influenza Virus 2021-03-01 Completed [facility] y of Vaccine Quad IM 3+ 00:00:00 [facility] Influenza Virus 2021-03-01 Completed [facility] of Vaccine Quad IM 3+ 00:00:00 [facility] Influenza Virus 2021-03-01 Completed [facility] of Vaccine Quad IM 3+ 00:00:00 [facility] Influenza Virus 2021-03-01 Completed [facility] y of Vaccine Quad IM 3+ 00:00:00 [facility] Influenza Virus 2021-03-01 Completed [facility] y of Vaccine Quad IM 3+ 00:00:00 [facility] Influenza Virus 2021-03-01 Completed [facility] y of Vaccine Quad IM 3+ 00:00:00 [facility] Influenza Virus 2021-03-01 Completed [facility] y of Vaccine Quad IM 3+ 00:00:00 [facility] Influenza Virus 2021-03-01 Completed [facility] y of Vaccine Quad IM 3+ 00:00:00 [facility] Influenza Virus 2021-03-01 Completed [facility] y of Vaccine Quad IM 3+ 00:00:00 [facility] Influenza Virus 2021-03-01 Completed [facility] y of Vaccine Quad IM 3+ 00:00:00 [facility] Influenza Virus 2021-03-01 Completed [facility] y of Vaccine Quad IM 3+ 00:00:00 [facility] Influenza Virus 2021-03-01 Completed [facility] y of Vaccine Quad IM 3+ 00:00:00 [facility] Influenza Virus 2021-03-01 Completed [facility] y of Vaccine Quad IM 3+ 00:00:00 [facility] Influenza Virus 2021-03-01 Completed [facility] y of Vaccine Quad IM 3+ 00:00:00 [facility] Influenza Virus 2021-03-01 Completed [facility] of Vaccine Quad IM 3+ 00:00:00 [facility] Influenza Virus 2021-03-01 Completed [facility] y of Vaccine Quad IM 3+ 00:00:00 [facility] Influenza Virus 2021-03-01 Completed [facility] y of Vaccine Quad IM 3+ 00:00:00 [facility] Influenza Virus 2021-03-01 Completed [facility] y of Vaccine Quad IM 3+ 00:00:00 [facility] Influenza Virus 2021-03-01 Completed [facility] y of Vaccine Quad IM 3+ 00:00:00 [facility] Influenza Virus 2021-03-01 Completed [facility] y of Vaccine Quad IM 3+ 00:00:00 [facility] Influenza Virus 2021-03-01 Completed [facility] y of Vaccine Quad IM 3+ 00:00:00 [facility] Influenza Virus 2021-03-01 Completed [facility] y of Vaccine Quad IM 3+ 00:00:00 [facility] Influenza Virus 2021-03-01 Completed [facility] y of Vaccine Quad IM 3+ 00:00:00 [facility] Influenza Virus 2021-03-01 Completed [facility] y of Vaccine Quad IM 3+ 00:00:00 [facility] Influenza Virus 2021-03-01 Completed [facility] y of Vaccine Quad IM 3+ 00:00:00 [facility] Influenza Virus 2021-03-01 Completed [facility] y of Vaccine Quad IM 3+ 00:00:00 [facility] Influenza Virus 2021-03-01 Completed [facility] Vaccine Quad IM 3+ [facility] [facility] [place] Influenza Virus 2021-03-01 Completed [facility] Vaccine Quad IM 3+ 00:00:00 [facility] [place] Influenza Virus 2021-03-01 Completed [facility] Vaccine Quad IM 3+ 00:00:00 [facility] [place] Influenza Virus 2021-03-01 Completed [facility] Vaccine Quad IM 3+ 00:00:00 [facility] [place] Influenza Virus 2021-03-01 Completed [facility] Vaccine Quad IM 3+ 00:00:00 [facility] [place] Influenza Virus 2021-03-01 Completed [facility] Vaccine Quad IM 3+ 00:00:00 [facility] [place] Influenza Virus 2021-03-01 Completed [facility] Vaccine Quad IM 3+ 00:00:00 [facility] [place] Influenza Virus 2021-03-01 Completed [facility] Vaccine Quad IM 3+ 00:00:00 [facility] [place] Influenza Virus 2021-03-01 Completed [facility] Vaccine Quad IM 3+ 00:00:00 [facility] [place] Influenza Virus 2021-03-01 Completed [facility] Vaccine Quad IM 3+ 00:00:00 [facility] [place] Influenza Virus 2021-03-01 Completed [facility] Vaccine Quad IM 3+ 00:00:00 [facility] [place] Influenza Virus 2021-03-01 Completed [facility] Vaccine Quad IM 3+ 00:00:00 [facility] [place] Influenza Virus 2021-03-01 Completed [facility] Vaccine Quad IM 3+ 00:00:00 [facility] Influenza Virus 2021-03-01 Completed [facility] Vaccine Quad IM 3+ 00:00:00 [facility] Influenza Virus 2020-03-23 Completed [facility] Vaccine (3+ yrs) 00:00:00 [facility] Influenza Virus 2020-03-23 Completed [facility] Vaccine (3+ yrs) 00:00:00 [facility] Influenza Virus 2020-03-23 Completed [facility] Vaccine (3+ yrs) 00:00:00 [facility] Influenza Virus 2020-03-23 Completed [facility] Vaccine (3+ yrs) 00:00:00 [facility] Influenza Virus 2020-03-23 Completed [facility] Vaccine (3+ yrs) 00:00:00 [facility] Influenza Virus 2020-03-23 Completed [facility] Vaccine (3+ yrs) 00:00:00 [facility] Influenza Virus 2020-03-23 Completed [facility] Vaccine (3+ yrs) 00:00:00 [facility] Influenza Virus 2020-03-23 Completed [facility] Vaccine (3+ yrs) 00:00:00 [facility] Influenza Virus 2020-03-23 Completed [facility] Vaccine (3+ yrs) 00:00:00 [facility] Influenza Virus 2020-03-23 Completed [facility] Vaccine (3+ yrs) 00:00:00 [facility] Influenza Virus 2020-03-23 Completed [facility] Vaccine (3+ yrs) 00:00:00 [facility] Influenza Virus 2020-03-23 Completed [facility] Vaccine (3+ yrs) 00:00:00 [facility] Influenza Virus 2020-03-23 Completed [facility] Vaccine (3+ yrs) 00:00:00 [facility] Influenza Virus 2020-03-23 Completed [facility] Vaccine (3+ yrs) 00:00:00 [facility] Influenza Virus 2020-03-23 Completed [facility] Vaccine (3+ yrs) 00:00:00 [facility] Influenza Virus 2020-03-23 Completed [facility] Vaccine (3+ yrs) 00:00:00 [facility] Influenza Virus 2020-03-23 Completed [facility] Vaccine (3+ yrs) 00:00:00 [facility] Influenza Virus 2020-03-23 Completed [facility] Vaccine (3+ yrs) 00:00:00 [facility] Influenza Virus 2020-03-23 Completed [facility] Vaccine (3+ yrs) 00:00:00 [facility] Influenza Virus 2020-03-23 Completed [facility] Vaccine (3+ yrs) 00:00:00 [facility] Influenza Virus 2020-03-23 Completed [facility] Vaccine (3+ yrs) 00:00:00 [facility] Influenza Virus 2020-03-23 Completed [facility] Vaccine (3+ yrs) 00:00:00 [facility] Influenza Virus 2020-03-23 Completed [facility] Vaccine (3+ yrs) 00:00:00 [facility] Influenza Virus 2020-03-23 Completed [facility] Vaccine (3+ yrs) 00:00:00 [facility] Influenza Virus 2020-03-23 Completed [facility] Vaccine (3+ yrs) 00:00:00 [facility] Influenza Virus 2020-03-23 Completed [facility] Vaccine (3+ yrs) 00:00:00 [facility] Influenza Virus 2020-03-23 Completed [facility] Vaccine (3+ yrs) 00:00:00 [facility] Influenza Virus 2020-03-23 Completed [facility] Vaccine (3+ yrs) 00:00:00 [facility] Influenza Virus 2020-03-23 Completed [facility] Vaccine (3+ yrs) 00:00:00 [facility] Influenza Virus 2020-03-23 Completed [facility] Vaccine (3+ yrs) 00:00:00 [facility] Influenza Virus 2020-03-23 Completed [facility] Vaccine (3+ yrs) 00:00:00 [facility] Influenza Virus 2020-03-23 Completed [facility] Vaccine (3+ yrs) 00:00:00 [facility] Influenza Virus 2020-03-23 Completed [facility] Vaccine (3+ yrs) 00:00:00 [facility] Influenza Virus 2020-03-23 Completed [facility] Vaccine (3+ yrs) 00:00:00 [facility] Influenza Virus 2020-03-23 Completed [facility] Vaccine (3+ yrs) 00:00:00 [facility] Influenza Virus 2020-03-23 Completed [facility] Vaccine (3+ yrs) 00:00:00 [facility] Influenza Virus 2020-03-23 Completed [facility] Vaccine (3+ yrs) 00:00:00 [facility] Influenza Virus 2020-03-23 Completed [facility] Vaccine (3+ yrs) 00:00:00 [facility] Influenza Virus 2020-03-23 Completed [facility] Vaccine (3+ yrs) 00:00:00 [facility] Influenza Virus 2020-03-23 Completed [facility] Vaccine (3+ yrs) 00:00:00 [facility] Influenza Virus 2020-03-23 Completed [facility] Vaccine (3+ yrs) 00:00:00 [facility] Influenza Virus 2020-03-23 Completed [facility] Vaccine (3+ yrs) 00:00:00 [facility] Influenza Virus 2020-03-23 Completed [facility] Vaccine (3+ yrs) 00:00:00 [facility] Influenza Virus 2020-03-23 Completed [facility] Vaccine (3+ yrs) 00:00:00 [facility] Influenza Virus 2020-03-23 Completed [facility] Vaccine (3+ yrs) 00:00:00 [facility] Influenza Virus 2020-03-23 Completed [facility] Vaccine (3+ yrs) 00:00:00 [facility] Influenza Virus 2020-03-23 Completed [facility] Vaccine (3+ yrs) 00:00:00 [facility] Influenza Virus 2020-03-23 Completed [facility] Vaccine (3+ yrs) 00:00:00 [facility] Influenza Virus 2020-03-23 Completed [facility] Vaccine (3+ yrs) 00:00:00 [facility] Influenza Virus 2020-03-23 Completed [facility] Vaccine (3+ yrs) 00:00:00 [facility] Influenza Virus 2019-03-22 Completed [facility] Vaccine Quad IM 3+ 00:00:00 [facility] Influenza Virus 2019-03-22 Completed [facility] Vaccine Quad IM 3+ 00:00:00 [facility] Influenza Virus 2019-03-22 Completed [facility] Vaccine Quad IM 3+ 00:00:00 [facility] Influenza Virus 2019-03-22 Completed [facility] Vaccine Quad IM 3+ 00:00:00 [facility] Influenza Virus 2019-03-22 Completed [facility] Vaccine Quad IM 3+ 00:00:00 [facility] Influenza Virus 2019-03-22 Completed [facility] Vaccine Quad IM 3+ 00:00:00 [facility] Influenza Virus 2019-03-22 Completed [facility] Vaccine Quad IM 3+ 00:00:00 [facility] Influenza Virus 2019-03-22 Completed [facility] Vaccine Quad IM 3+ 00:00:00 [facility] Influenza Virus 2019-03-22 Completed [facility] Vaccine Quad IM 3+ 00:00:00 [facility] Influenza Virus 2019-03-22 Completed [facility] Vaccine Quad IM 3+ 00:00:00 [facility] Influenza Virus 2019-03-22 Completed [facility] Vaccine Quad IM 3+ 00:00:00 [facility] Influenza Virus 2019-03-22 Completed [facility] Vaccine Quad IM 3+ 00:00:00 [facility] Influenza Virus 2019-03-22 Completed [facility] Vaccine Quad IM 3+ 00:00:00 [facility] Influenza Virus 2019-03-22 Completed [facility] Vaccine Quad IM 3+ 00:00:00 [facility] Influenza Virus 2019-03-22 Completed [facility] Vaccine Quad IM 3+ 00:00:00 [facility] Influenza Virus 2019-03-22 Completed [facility] Vaccine Quad IM 3+ 00:00:00 [facility] Influenza Virus 2019-03-22 Completed [facility] Vaccine Quad IM 3+ 00:00:00 [facility] Influenza Virus 2019-03-22 Completed [facility] Vaccine Quad IM 3+ 00:00:00 [facility] Influenza Virus 2019-03-22 Completed [facility] Vaccine Quad IM 3+ 00:00:00 [facility] Influenza Virus 2019-03-22 Completed [facility] Vaccine Quad IM 3+ 00:00:00 [facility] Influenza Virus 2019-03-22 Completed [facility] Vaccine Quad IM 3+ 00:00:00 [facility] Influenza Virus 2019-03-22 Completed [facility] Vaccine Quad IM 3+ 00:00:00 [facility] Influenza Virus 2019-03-22 Completed [facility] Vaccine Quad IM 3+ 00:00:00 [facility] Influenza Virus 2019-03-22 Completed [facility] Vaccine Quad IM 3+ 00:00:00 [facility] Influenza Virus 2019-03-22 Completed [facility] Vaccine Quad IM 3+ 00:00:00 [facility] Influenza Virus 2019-03-22 Completed [facility] Vaccine Quad IM 3+ 00:00:00 [facility] Influenza Virus 2019-03-22 Completed [facility] Vaccine Quad IM 3+ 00:00:00 [facility] Influenza Virus 2019-03-22 Completed [facility] Vaccine Quad IM 3+ 00:00:00 [facility] Influenza Virus 2019-03-22 Completed [facility] Vaccine Quad IM 3+ 00:00:00 [facility] Influenza Virus 2019-03-22 Completed [facility] Vaccine Quad IM 3+ 00:00:00 [facility] Influenza Virus 2019-03-22 Completed [facility] Vaccine Quad IM 3+ 00:00:00 [facility] Influenza Virus 2019-03-22 Completed [facility] Vaccine Quad IM 3+ 00:00:00 [facility] Influenza Virus 2019-03-22 Completed [facility] Vaccine Quad IM 3+ 00:00:00 [facility] Influenza Virus 2019-03-22 Completed [facility] Vaccine Quad IM 3+ 00:00:00 [facility] Influenza Virus 2019-03-22 Completed [facility] Vaccine Quad IM 3+ 00:00:00 [facility] Influenza Virus 2019-03-22 Completed [facility] Vaccine Quad IM 3+ 00:00:00 [facility] Influenza Virus 2019-03-22 Completed [facility] Vaccine Quad IM 3+ 00:00:00 [facility] Influenza Virus 2019-03-22 Completed [facility] Vaccine Quad IM 3+ 00:00:00 [facility] Influenza Virus 2019-03-22 Completed [facility] Vaccine Quad IM 3+ 00:00:00 [facility] Influenza Virus 2019-03-22 Completed [facility] Vaccine Quad IM 3+ 00:00:00 [facility] Influenza Virus 2019-03-22 Completed [facility] Vaccine Quad IM 3+ 00:00:00 [facility] Influenza Virus 2019-03-22 Completed [facility] Vaccine Quad IM 3+ 00:00:00 [facility] Influenza Virus 2019-03-22 Completed [facility] Vaccine Quad IM 3+ 00:00:00 [facility] Influenza Virus 2019-03-22 Completed [facility] Vaccine Quad IM 3+ 00:00:00 [facility] Influenza Virus 2019-03-22 Completed [facility] Vaccine Quad IM 3+ 00:00:00 [facility] Influenza Virus 2019-03-22 Completed [facility] Vaccine Quad IM 3+ 00:00:00 [facility] Influenza Virus 2019-03-22 Completed [facility] Vaccine Quad IM 3+ 00:00:00 [facility] Influenza Virus 2019-03-22 Completed [facility] Vaccine Quad IM 3+ 00:00:00 [facility] Influenza Virus 2019-03-22 Completed [facility] Vaccine Quad IM 3+ 00:00:00 [facility] Influenza Virus 2019-03-22 Completed [facility] Vaccine Quad IM 3+ 00:00:00 [facility] Influenza Virus 2018-06-06 Completed [facility] Vaccine Quad IM 3+ 00:00:00 [facility] Influenza Virus 2018-06-06 Completed [facility] Vaccine Quad IM 3+ 00:00:00 [facility] Influenza Virus 2018-06-06 Completed [facility] Vaccine Quad IM 3+ 00:00:00 [facility] Influenza Virus 2018-06-06 Completed [facility] Vaccine Quad IM 3+ 00:00:00 [facility] Influenza Virus 2018-06-06 Completed [facility] Vaccine Quad IM 3+ 00:00:00 [facility] Influenza Virus 2018-06-06 Completed [facility] Vaccine Quad IM 3+ 00:00:00 [facility] Influenza Virus 2018-06-06 Completed [facility] Vaccine Quad IM 3+ 00:00:00 [facility] Influenza Virus 2018-06-06 Completed [facility] Vaccine Quad IM 3+ 00:00:00 [facility] Influenza Virus 2018-06-06 Completed [facility] Vaccine Quad IM 3+ 00:00:00 [facility] Influenza Virus 2018-06-06 Completed [facility] Vaccine Quad IM 3+ 00:00:00 [facility] Influenza Virus 2018-06-06 Completed [facility] Vaccine Quad IM 3+ 00:00:00 [facility] Influenza Virus 2018-06-06 Completed [facility] Vaccine Quad IM 3+ 00:00:00 [facility] Influenza Virus 2018-06-06 Completed [facility] Vaccine Quad IM 3+ 00:00:00 [facility] Influenza Virus 2018-06-06 Completed [facility] Vaccine Quad IM 3+ 00:00:00 [facility] Influenza Virus 2018-06-06 Completed [facility] Vaccine Quad IM 3+ 00:00:00 [facility] Influenza Virus 2018-06-06 Completed [facility] Vaccine Quad IM 3+ 00:00:00 [facility] Influenza Virus 2018-06-06 Completed [facility] Vaccine Quad IM 3+ 00:00:00 [facility] Influenza Virus 2018-06-06 Completed [facility] Vaccine Quad IM 3+ 00:00:00 [facility] Influenza Virus 2018-06-06 Completed [facility] Vaccine Quad IM 3+ 00:00:00 [facility] Influenza Virus 2018-06-06 Completed [facility] Vaccine Quad IM 3+ 00:00:00 [facility] Influenza Virus 2018-06-06 Completed [facility] Vaccine Quad IM 3+ 00:00:00 [facility] Influenza Virus 2018-06-06 Completed [facility] Vaccine Quad IM 3+ 00:00:00 [facility] Influenza Virus 2018-06-06 Completed [facility] Vaccine Quad IM 3+ 00:00:00 [facility] Influenza Virus 2018-06-06 Completed [facility] Vaccine Quad IM 3+ 00:00:00 [facility] Influenza Virus 2018-06-06 Completed [facility] Vaccine Quad IM 3+ 00:00:00 [facility] Influenza Virus 2018-06-06 Completed [facility] Vaccine Quad IM 3+ 00:00:00 [facility] Influenza Virus 2018-06-06 Completed [facility] Vaccine Quad IM 3+ 00:00:00 [facility] Influenza Virus 2018-06-06 Completed [facility] Vaccine Quad IM 3+ 00:00:00 [facility] Influenza Virus 2018-06-06 Completed [facility] Vaccine Quad IM 3+ 00:00:00 [facility] Influenza Virus 2018-06-06 Completed [facility] Vaccine Quad IM 3+ 00:00:00 [facility] Influenza Virus 2018-06-06 Completed [facility] Vaccine Quad IM 3+ 00:00:00 [facility] Influenza Virus 2018-06-06 Completed [facility] Vaccine Quad IM 3+ 00:00:00 [facility] Influenza Virus 2018-06-06 Completed [facility] Vaccine Quad IM 3+ 00:00:00 [facility] Influenza Virus 2018-06-06 Completed [facility] Vaccine Quad IM 3+ 00:00:00 [facility] Influenza Virus 2018-06-06 Completed [facility] Vaccine Quad IM 3+ 00:00:00 [facility] Influenza Virus 2018-06-06 Completed [facility] Vaccine Quad IM 3+ 00:00:00 [facility] Influenza Virus 2018-06-06 Completed [facility] Vaccine Quad IM 3+ 00:00:00 [facility] Influenza Virus 2018-06-06 Completed [facility] Vaccine Quad IM 3+ 00:00:00 [facility] Influenza Virus 2018-06-06 Completed [facility] Vaccine Quad IM 3+ 00:00:00 [facility] Influenza Virus 2018-06-06 Completed [facility] Vaccine Quad IM 3+ 00:00:00 [facility] Influenza Virus 2018-06-06 Completed [facility] Vaccine Quad IM 3+ 00:00:00 [facility] Influenza Virus 2018-06-06 Completed [facility] Vaccine Quad IM 3+ 00:00:00 [facility] Influenza Virus 2018-06-06 Completed [facility] Vaccine Quad IM 3+ 00:00:00 [facility] Influenza Virus 2018-06-06 Completed [facility] Vaccine Quad IM 3+ 00:00:00 [facility] Influenza Virus 2018-06-06 Completed [facility] Vaccine Quad IM 3+ 00:00:00 [facility] [place] Influenza Virus 2018-06-06 Completed [facility] Vaccine Quad IM 3+ 00:00:00 [facility] Influenza Virus 2018-06-06 Completed [facility] Vaccine Quad IM 3+ 00:00:00 [facility] [place] Influenza Virus 2018-06-06 Completed [facility] Vaccine Quad IM 3+ 00:00:00 [facility] Influenza Virus 2018-06-06 Completed [facility] Vaccine Quad IM 3+ 00:00:00 [facility] Influenza Virus 2018-06-06 Completed [facility] Vaccine Quad IM 3+ 00:00:00 [facility] Meningococcal 2016-01-21 Completed [facility] Polys[facility] 00:[facility] [place] [facility] (groups A, C, Y and Branc h W-135) conjugate vaccine (MCV4P) TDAP 2016-01-21 Completed [facility] 00:00:00 [facility] Meningococcal 2016-01-21 Completed [facility] Polysaccharide 00:00:00 [place] [facility] (groups A, C, Y and Branc h W-135) conjugate vaccine (MCV4P) TDAP 2016-01-21 Completed [facility] 00:00:00 [facility] Meningococcal 2016-01-21 Completed [facility] Polysaccharide 00:00:00 [place] [facility] (groups A, C, Y and Branc h W-135) conjugate vaccine (MCV4P) TDAP 2016-01-21 Completed [facility] 00:00:00 [facility] Meningococcal 2016-01-21 Completed [facility] Polysaccharide 00:00:00 [place] [facility] (groups A, C, Y and Branc h W-135) conjugate vaccine (MCV4P) TDAP 2016-01-21 Completed [facility] 00:00:00 [facility] Meningococcal 2016-01-21 Completed [facility] Polysaccharide 00:00:00 [place] [facility] (groups A, C, Y and Branc h W-135) conjugate vaccine (MCV4P) TDAP 2016-01-21 Completed [facility] 00:00:00 [facility] Meningococcal 2016-01-21 Completed [facility] Polysaccharide 00:00:00 [place] [facility] (groups A, C, Y and Branc h W-135) conjugate vaccine (MCV4P) TDAP 2016-01-21 Completed [facility] 00:00:00 [facility] Meningococcal 2016-01-21 Completed [facility] Polysaccharide 00:00:00 [place] [facility] (groups A, C, Y and Branc h W-135) conjugate vaccine (MCV4P) TDAP 2016-01-21 Completed [facility] 00:00:00 [facility] Meningococcal 2016-01-21 Completed [facility] Polysaccharide 00:00:00 [place] [facility] (groups A, C, Y and Branc h W-135) conjugate vaccine (MCV4P) TDAP 2016-01-21 Completed [facility] 00:00:00 [facility] Meningococcal 2016-01-21 Completed [facility] Polysaccharide 00:00:00 [place] [facility] (groups A, C, Y and Branc h W-135) conjugate vaccine (MCV4P) TDAP 2016-01-21 Completed [facility] 00:00:00 [facility] Meningococcal 2016-01-21 Completed [facility] Polysaccharide 00:00:00 [place] [facility] (groups A, C, Y and Branc h W-135) conjugate vaccine (MCV4P) TDAP 2016-01-21 Completed [facility] 00:00:00 [facility] Meningococcal 2016-01-21 Completed [facility] Polysaccharide 00:00:00 [place] [facility] (groups A, C, Y and Branc h W-135) conjugate vaccine (MCV4P) TDAP 2016-01-21 Completed [facility] 00:00:00 [facility] Meningococcal 2016-01-21 Completed [facility] Polysaccharide 00:00:00 [place] [facility] (groups A, C, Y and Branc h W-135) conjugate vaccine (MCV4P) TDAP 2016-01-21 Completed [facility] 00:00:00 [facility] Meningococcal 2016-01-21 Completed [facility] Polysaccharide 00:00:00 [place] [facility] (groups A, C, Y and Branc h W-135) conjugate vaccine (MCV4P) TDAP 2016-01-21 Completed [facility] 00:00:00 [facility] Meningococcal 2016-01-21 Completed [facility] Polysaccharide 00:00:00 [place] [facility] (groups A, C, Y and Branc h W-135) conjugate vaccine (MCV4P) TDAP 2016-01-21 Completed [facility] 00:00:00 [facility] Meningococcal 2016-01-21 Completed [facility] Polysaccharide 00:00:00 [place] [facility] (groups A, C, Y and Branc h W-135) conjugate vaccine (MCV4P) TDAP 2016-01-21 Completed [facility] 00:00:00 [facility] Meningococcal 2016-01-21 Completed [facility] Polysaccharide 00:00:00 [place] [facility] (groups A, C, Y and Branc h W-135) conjugate vaccine (MCV4P) TDAP 2016-01-21 Completed [facility] 00:00:00 [facility] Meningococcal 2016-01-21 Completed [facility] Polysaccharide 00:00:00 [place] [facility] (groups A, C, Y and Branc h W-135) conjugate vaccine (MCV4P) TDAP 2016-01-21 Completed [facility] 00:00:00 [facility] Meningococcal 2016-01-21 Completed [facility] Polysaccharide 00:00:00 [place] [facility] (groups A, C, Y and Branc h W-135) conjugate vaccine (MCV4P) TDAP 2016-01-21 Completed [facility] 00:00:00 [facility] Meningococcal 2016-01-21 Completed [facility] Polysaccharide 00:00:00 [place] [facility] (groups A, C, Y and Branc h W-135) conjugate vaccine (MCV4P) TDAP 2016-01-21 Completed [facility] 00:00:00 [facility] Meningococcal 2016-01-21 Completed [facility] Polysaccharide 00:00:00 [place] [facility] (groups A, C, Y and Branc h W-135) conjugate vaccine (MCV4P) TDAP 2016-01-21 Completed [facility] 00:00:00 [facility] Meningococcal 2016-01-21 Completed [facility] Polysaccharide 00:00:00 [place] [facility] (groups A, C, Y and Branc h W-135) conjugate vaccine (MCV4P) TDAP 2016-01-21 Completed [facility] 00:00:00 [facility] Meningococcal 2016-01-21 Completed [facility] Polysaccharide 00:00:00 [place] [facility] (groups A, C, Y and Branc h W-135) conjugate vaccine (MCV4P) TDAP 2016-01-21 Completed [facility] 00:00:00 [facility] Meningococcal 2016-01-21 Completed [facility] Polysaccharide 00:00:00 [place] [facility] (groups A, C, Y and Branc h W-135) conjugate vaccine (MCV4P) TDAP 2016-01-21 Completed [facility] 00:00:00 [facility] Meningococcal 2016-01-21 Completed [facility] Polysaccharide 00:00:00 [place] [facility] (groups A, C, Y and Branc h W-135) conjugate vaccine (MCV4P) TDAP 2016-01-21 Completed [facility] 00:00:00 [facility] Meningococcal 2016-01-21 Completed [facility] Polysaccharide 00:00:00 [place] [facility] (groups A, C, Y and Branc h W-135) conjugate vaccine (MCV4P) TDAP 2016-01-21 Completed [facility] 00:00:00 [facility] Meningococcal 2016-01-21 Completed [facility] Polysaccharide 00:00:00 [place] [facility] (groups A, C, Y and Branc h W-135) conjugate vaccine (MCV4P) TDAP 2016-01-21 Completed [facility] 00:00:00 [facility] Meningococcal 2016-01-21 Completed [facility] Polysaccharide 00:00:00 [place] [facility] (groups A, C, Y and Branc h W-135) conjugate vaccine (MCV4P) TDAP 2016-01-21 Completed [facility] 00:00:00 [facility] Meningococcal 2016-01-21 Completed [facility] Polysaccharide 00:00:00 [place] [facility] (groups A, C, Y and Branc h W-135) conjugate vaccine (MCV4P) TDAP 2016-01-21 Completed [facility] 00:00:00 [facility] Meningococcal 2016-01-21 Completed [facility] Polysaccharide 00:00:00 [place] [facility] (groups A, C, Y and Branc h W-135) conjugate vaccine (MCV4P) TDAP 2016-01-21 Completed [facility] 00:00:00 [facility] Meningococcal 2016-01-21 Completed [facility] Polysaccharide 00:00:00 [place] [facility] (groups A, C, Y and Branc h W-135) conjugate vaccine (MCV4P) TDAP 2016-01-21 Completed [facility] 00:00:00 [facility] Meningococcal 2016-01-21 Completed [facility] Polysaccharide 00:00:00 [place] [facility] (groups A, C, Y and Branc h W-135) conjugate vaccine (MCV4P) TDAP 2016-01-21 Completed [facility] 00:00:00 [facility] Meningococcal 2016-01-21 Completed [facility] Polysaccharide 00:00:00 [place] [facility] (groups A, C, Y and Branc h W-135) conjugate vaccine (MCV4P) TDAP 2016-01-21 Completed [facility] 00:00:00 [facility] Meningococcal 2016-01-21 Completed [facility] Polysaccharide 00:00:00 [place] [facility] (groups A, C, Y and Branc h W-135) conjugate vaccine (MCV4P) TDAP 2016-01-21 Completed [facility] 00:00:00 [facility] Meningococcal 2016-01-21 Completed [facility] Polysaccharide 00:00:00 [place] [facility] (groups A, C, Y and Branc h W-135) conjugate vaccine (MCV4P) TDAP 2016-01-21 Completed [facility] 00:00:00 [facility] Meningococcal 2016-01-21 Completed [facility] Polysaccharide 00:00:00 [place] [facility] (groups A, C, Y and Branc h W-135) conjugate vaccine (MCV4P) TDAP 2016-01-21 Completed [facility] 00:00:00 [facility] Meningococcal 2016-01-21 Completed [facility] Polysaccharide 00:00:00 [place] [facility] (groups A, C, Y and Branc h W-135) conjugate vaccine (MCV4P) TDAP 2016-01-21 Completed [facility] 00:00:00 [facility] Meningococcal 2016-01-21 Completed [facility] Polysaccharide 00:00:00 [place] [facility] (groups A, C, Y and Branc h W-135) conjugate vaccine (MCV4P) TDAP 2016-01-21 Completed [facility] 00:00:00 [facility] Meningococcal 2016-01-21 Completed [facility] Polysaccharide 00:00:00 [place] [facility] (groups A, C, Y and Branc h W-135) conjugate vaccine (MCV4P) TDAP 2016-01-21 Completed [facility] 00:00:00 [facility] Meningococcal 2016-01-21 Completed [facility] Polysaccharide 00:00:00 [place] [facility] (groups A, C, Y and Branc h W-135) conjugate vaccine (MCV4P) TDAP 2016-01-21 Completed [facility] 00:00:00 [facility] Meningococcal 2016-01-21 Completed [facility] Polysaccharide 00:00:00 [place] [facility] (groups A, C, Y and Branc h W-135) conjugate vaccine (MCV4P) TDAP 2016-01-21 Completed [facility] 00:00:00 [facility] Meningococcal 2016-01-21 Completed [facility] Polysaccharide 00:00:00 [place] [facility] (groups A, C, Y and Branc h W-135) conjugate vaccine (MCV4P) TDAP 2016-01-21 Completed [facility] 00:00:00 [facility] Meningococcal 2016-01-21 Completed [facility] Polysaccharide 00:00:00 [place] [facility] (groups A, C, Y and Branc h W-135) conjugate vaccine (MCV4P) TDAP 2016-01-21 Completed [facility] 00:00:00 [facility] Meningococcal 2016-01-21 Completed [facility] Polysaccharide 00:00:00 [place] [facility] (groups A, C, Y and Branc h W-135) conjugate vaccine (MCV4P) TDAP 2016-01-21 Completed [facility] 00:00:00 [facility] Meningococcal 2016-01-21 Completed [facility] Polysaccharide 00:00:00 [place] [facility] (groups A, C, Y and Branc h W-135) conjugate vaccine (MCV4P) TDAP 2016-01-21 Completed [facility] 00:00:00 [facility] Meningococcal 2016-01-21 Completed [facility] Polysaccharide 00:00:00 [place] [facility] (groups A, C, Y and Branc h W-135) conjugate vaccine (MCV4P) TDAP 2016-01-21 Completed [facility] 00:00:00 [facility] Meningococcal 2016-01-21 Completed [facility] Polysaccharide 00:00:00 [place] [facility] (groups A, C, Y and Branc h W-135) conjugate vaccine (MCV4P) TDAP 2016-01-21 Completed [facility] 00:00:00 [facility] Meningococcal 2016-01-21 Completed [facility] Polysaccharide 00:00:00 [place] [facility] (groups A, C, Y and Branc h W-135) conjugate vaccine (MCV4P) TDAP 2016-01-21 Completed [facility] 00:00:00 [facility] Meningococcal 2016-01-21 Completed [facility] Polysaccharide 00:00:00 [place] [facility] (groups A, C, Y and Branc h W-135) conjugate vaccine (MCV4P) TDAP 2016-01-21 Completed [facility] 00:00:00 [facility] Meningococcal 2016-01-21 Completed [facility] Polysaccharide 00:00:00 [place] [facility] (groups A, C, Y and Branc h W-135) conjugate vaccine (MCV4P) TDAP 2016-01-21 Completed [facility] 00:00:00 [facility] Meningococcal 2016-01-21 Completed [facility] Polysaccharide 00:00:00 [place] [facility] (groups A, C, Y and Branc h W-135) conjugate vaccine (MCV4P) TDAP 2016-01-21 Completed [facility] 00:00:00 [facility] DTAP 2006-08-09 Completed [facility] 00:00:00 [facility] HEPATITIS A 2006-08-09 Completed [facility] 00:00:00 [facility] MMR 2006-08-09 Completed [facility] 00:00:00 [facility] Polio (IPV/OPV) 2006-08-09 Completed [facility] 00:00:00 [facility] Varicella 2006-08-09 Completed [facility] (varivax)(chicken 00:00:00 [place] [facility] Polio (IPV/OPV) 2006-08-09 Completed [facility] 00:00:00 [facility] DTAP 2006-08-09 Completed [facility] 00:00:00 [facility] HEPATITIS A 2006-08-09 Completed [facility] 00:00:00 [facility] MMR 2006-08-09 Completed [facility] 00:00:00 [facility] Polio (IPV/OPV) 2006-08-09 Completed [facility] 00:00:00 [facility] Varicella 2006-08-09 Completed [facility] (varivax)(chicken 00:00:00 [place] [facility] Polio (IPV/OPV) 2006-08-09 Completed [facility] 00:00:00 [facility] DTAP 2006-08-09 Completed [facility] 00:00:00 [facility] HEPATITIS A 2006-08-09 Completed [facility] 00:00:00 [facility] MMR 2006-08-09 Completed [facility] 00:00:00 [facility] Polio (IPV/OPV) 2006-08-09 Completed [facility] 00:00:00 [facility] Varicella 2006-08-09 Completed [facility] (varivax)(chicken 00:00:00 [place] [facility] Polio (IPV/OPV) 2006-08-09 Completed [facility] 00:00:00 [facility] DTAP 2006-08-09 Completed [facility] 00:00:00 [facility] HEPATITIS A 2006-08-09 Completed [facility] 00:00:00 [facility] MMR 2006-08-09 Completed [facility] 00:00:00 [facility] Polio (IPV/OPV) 2006-08-09 Completed [facility] 00:00:00 [facility] Varicella 2006-08-09 Completed [facility] (varivax)(chicken 00:00:00 [place] [facility] Polio (IPV/OPV) 2006-08-09 Completed [facility] 00:00:00 [facility] DTAP 2006-08-09 Completed [facility] 00:00:00 [facility] HEPATITIS A 2006-08-09 Completed [facility] 00:00:00 [facility] MMR 2006-08-09 Completed [facility] 00:00:00 [facility] Polio (IPV/OPV) 2006-08-09 Completed [facility] 00:00:00 [facility] Varicella 2006-08-09 Completed [facility] (varivax)(chicken 00:00:00 [place] [facility] Polio (IPV/OPV) 2006-08-09 Completed [facility] 00:00:00 [facility] DTAP 2006-08-09 Completed [facility] 00:00:00 [facility] HEPATITIS A 2006-08-09 Completed [facility] 00:00:00 [facility] MMR 2006-08-09 Completed [facility] 00:00:00 [facility] Polio (IPV/OPV) 2006-08-09 Completed [facility] 00:00:00 [facility] Varicella 2006-08-09 Completed [facility] (varivax)(chicken 00:00:00 [place] [facility] Polio (IPV/OPV) 2006-08-09 Completed [facility] 00:00:00 [facility] DTAP 2006-08-09 Completed [facility] 00:00:00 [facility] HEPATITIS A 2006-08-09 Completed [facility] 00:00:00 [facility] MMR 2006-08-09 Completed [facility] 00:00:00 [facility] Polio (IPV/OPV) 2006-08-09 Completed [facility] 00:00:00 [facility] Varicella 2006-08-09 Completed [facility] (varivax)(chicken 00:00:00 [place] [facility] Polio (IPV/OPV) 2006-08-09 Completed [facility] 00:00:00 [facility] DTAP 2006-08-09 Completed [facility] 00:00:00 [facility] HEPATITIS A 2006-08-09 Completed [facility] 00:00:00 [facility] MMR 2006-08-09 Completed [facility] 00:00:00 [facility] Polio (IPV/OPV) 2006-08-09 Completed [facility] 00:00:00 [facility] Varicella 2006-08-09 Completed [facility] (varivax)(chicken 00:00:00 [place] [facility] Polio (IPV/OPV) 2006-08-09 Completed [facility] 00:00:00 [facility] DTAP 2006-08-09 Completed [facility] 00:00:00 [facility] HEPATITIS A 2006-08-09 Completed [facility] 00:00:00 [facility] MMR 2006-08-09 Completed [facility] 00:00:00 [facility] Polio (IPV/OPV) 2006-08-09 Completed [facility] 00:00:00 [facility] Varicella 2006-08-09 Completed [facility] (varivax)(chicken 00:00:00 [place] [facility] Polio (IPV/OPV) 2006-08-09 Completed [facility] 00:00:00 [facility] DTAP 2006-08-09 Completed [facility] 00:00:00 [facility] HEPATITIS A 2006-08-09 Completed [facility] 00:00:00 [facility] MMR 2006-08-09 Completed [facility] 00:00:00 [facility] Polio (IPV/OPV) 2006-08-09 Completed [facility] 00:00:00 [facility] Varicella 2006-08-09 Completed [facility] (varivax)(chicken 00:00:00 [place] [facility] Polio (IPV/OPV) 2006-08-09 Completed [facility] 00:00:00 [facility] DTAP 2006-08-09 Completed [facility] 00:00:00 [facility] HEPATITIS A 2006-08-09 Completed [facility] 00:00:00 [facility] MMR 2006-08-09 Completed [facility] 00:00:00 [facility] Polio (IPV/OPV) 2006-08-09 Completed [facility] 00:00:00 [facility] Varicella 2006-08-09 Completed [facility] (varivax)(chicken 00:00:00 [place] [facility] Polio (IPV/OPV) 2006-08-09 Completed [facility] 00:00:00 [facility] DTAP 2006-08-09 Completed [facility] 00:00:00 [facility] HEPATITIS A 2006-08-09 Completed [facility] 00:00:00 [facility] MMR 2006-08-09 Completed [facility] 00:00:00 [facility] Polio (IPV/OPV) 2006-08-09 Completed [facility] 00:00:00 [facility] Varicella 2006-08-09 Completed [facility] (varivax)(chicken 00:00:00 [place] [facility] Polio (IPV/OPV) 2006-08-09 Completed [facility] 00:00:00 [facility] DTAP 2006-08-09 Completed [facility] 00:00:00 [facility] HEPATITIS A 2006-08-09 Completed [facility] 00:00:00 [facility] MMR 2006-08-09 Completed [facility] 00:00:00 [facility] Polio (IPV/OPV) 2006-08-09 Completed [facility] 00:00:00 [facility] Varicella 2006-08-09 Completed [facility] (varivax)(chicken 00:00:00 [place] [facility] Polio (IPV/OPV) 2006-08-09 Completed [facility] 00:00:00 [facility] DTAP 2006-08-09 Completed [facility] 00:00:00 [facility] HEPATITIS A 2006-08-09 Completed [facility] 00:00:00 [facility] MMR 2006-08-09 Completed [facility] 00:00:00 [facility] Polio (IPV/OPV) 2006-08-09 Completed [facility] 00:00:00 [facility] Varicella 2006-08-09 Completed [facility] (varivax)(chicken 00:00:00 [place] [facility] Polio (IPV/OPV) 2006-08-09 Completed [facility] 00:00:00 [facility] DTAP 2006-08-09 Completed [facility] 00:00:00 [facility] HEPATITIS A 2006-08-09 Completed [facility] 00:00:00 [facility] MMR 2006-08-09 Completed [facility] 00:00:00 [facility] Polio (IPV/OPV) 2006-08-09 Completed [facility] 00:00:00 [facility] Varicella 2006-08-09 Completed [facility] (varivax)(chicken 00:00:00 [place] [facility] Polio (IPV/OPV) 2006-08-09 Completed [facility] 00:00:00 [facility] DTAP 2006-08-09 Completed [facility] 00:00:00 [facility] HEPATITIS A 2006-08-09 Completed [facility] 00:00:00 [facility] MMR 2006-08-09 Completed [facility] 00:00:00 [facility] Polio (IPV/OPV) 2006-08-09 Completed [facility] 00:00:00 [facility] Varicella 2006-08-09 Completed [facility] (varivax)(chicken 00:00:00 [place] [facility] Polio (IPV/OPV) 2006-08-09 Completed [facility] 00:00:00 [facility] DTAP 2006-08-09 Completed [facility] 00:00:00 [facility] HEPATITIS A 2006-08-09 Completed [facility] 00:00:00 [facility] MMR 2006-08-09 Completed [facility] 00:00:00 [facility] Polio (IPV/OPV) 2006-08-09 Completed [facility] 00:00:00 [facility] Varicella 2006-08-09 Completed [facility] (varivax)(chicken 00:00:00 [place] [facility] Polio (IPV/OPV) 2006-08-09 Completed [facility] 00:00:00 [facility] DTAP 2006-08-09 Completed [facility] 00:00:00 [facility] HEPATITIS A 2006-08-09 Completed [facility] 00:00:00 [facility] MMR 2006-08-09 Completed [facility] 00:00:00 [facility] Polio (IPV/OPV) 2006-08-09 Completed [facility] 00:00:00 [facility] Varicella 2006-08-09 Completed [facility] (varivax)(chicken 00:00:00 [place] [facility] Polio (IPV/OPV) 2006-08-09 Completed [facility] 00:00:00 [facility] DTAP 2006-08-09 Completed [facility] 00:00:00 [facility] HEPATITIS A 2006-08-09 Completed [facility] 00:00:00 [facility] MMR 2006-08-09 Completed [facility] 00:00:00 [facility] Polio (IPV/OPV) 2006-08-09 Completed [facility] 00:00:00 [facility] Varicella 2006-08-09 Completed [facility] (varivax)(chicken 00:00:00 [place] [facility] Polio (IPV/OPV) 2006-08-09 Completed [facility] 00:00:00 [facility] DTAP 2006-08-09 Completed [facility] 00:00:00 [facility] HEPATITIS A 2006-08-09 Completed [facility] 00:00:00 [facility] MMR 2006-08-09 Completed [facility] 00:00:00 [facility] Polio (IPV/OPV) 2006-08-09 Completed [facility] 00:00:00 [facility] Varicella 2006-08-09 Completed [facility] (varivax)(chicken 00:00:00 [facility] edical pox) Branch Polio (IPV/OPV) 2006-08-09 Completed [facility] of 00:00:00 [facility] DTAP 2006-08-09 Completed [facility] 00:00:00 [facility] HEPATITIS A 2006-08-09 Completed [facility] 00:00:00 [facility] MMR 2006-08-09 Completed [facility] 00:00:00 [facility] Polio (IPV/OPV) 2006-08-09 Completed [facility] 00:00:00 [facility] Varicella 2006-08-09 Completed [facility] (varivax)(chicken 00:00:00 [place] [facility] Polio (IPV/OPV) 2006-08-09 Completed [facility] 00:00:00 [facility] DTAP 2006-08-09 Completed [facility] 00:00:00 [facility] HEPATITIS A 2006-08-09 Completed [facility] 00:00:00 [facility] MMR 2006-08-09 Completed [facility] 00:00:00 [facility] Polio (IPV/OPV) 2006-08-09 Completed [facility] 00:00:00 [facility] Varicella 2006-08-09 Completed [facility] (varivax)(chicken 00:00:00 [place] [facility] Polio (IPV/OPV) 2006-08-09 Completed [facility] 00:00:00 [facility] DTAP 2006-08-09 Completed [facility] 00:00:00 [facility] HEPATITIS A 2006-08-09 Completed [facility] 00:00:00 [facility] MMR 2006-08-09 Completed [facility] 00:00:00 [facility] Polio (IPV/OPV) 2006-08-09 Completed [facility] 00:00:00 [facility] Varicella 2006-08-09 Completed [facility] (varivax)(chicken 00:00:00 [place] [facility] Polio (IPV/OPV) 2006-08-09 Completed [facility] 00:00:00 [facility] DTAP 2006-08-09 Completed [facility] 00:00:00 [facility] HEPATITIS A 2006-08-09 Completed [facility] 00:00:00 [facility] MMR 2006-08-09 Completed [facility] 00:00:00 [facility] Polio (IPV/OPV) 2006-08-09 Completed [facility] 00:00:00 [facility] Varicella 2006-08-09 Completed [facility] (varivax)(chicken 00:00:00 [place] [facility] Polio (IPV/OPV) 2006-08-09 Completed [facility] 00:00:00 [facility] DTAP 2006-08-09 Completed [facility] 00:00:00 [facility] HEPATITIS A 2006-08-09 Completed [facility] 00:00:00 [facility] MMR 2006-08-09 Completed [facility] 00:00:00 [facility] Polio (IPV/OPV) 2006-08-09 Completed [facility] 00:00:00 [facility] Varicella 2006-08-09 Completed [facility] (varivax)(chicken 00:00:00 [place] [facility] Polio (IPV/OPV) 2006-08-09 Completed [facility] 00:00:00 [facility] DTAP 2006-08-09 Completed [facility] 00:00:00 [facility] HEPATITIS A 2006-08-09 Completed [facility] 00:00:00 [facility] MMR 2006-08-09 Completed [facility] 00:00:00 [facility] Polio (IPV/OPV) 2006-08-09 Completed [facility] 00:00:00 [facility] Varicella 2006-08-09 Completed [facility] (varivax)(chicken 00:00:00 [place] [facility] Polio (IPV/OPV) 2006-08-09 Completed [facility] 00:00:00 [facility] DTAP 2006-08-09 Completed [facility] 00:00:00 [facility] HEPATITIS A 2006-08-09 Completed [facility] 00:00:00 [facility] MMR 2006-08-09 Completed [facility] 00:00:00 [facility] Polio (IPV/OPV) 2006-08-09 Completed [facility] 00:00:00 [facility] Varicella 2006-08-09 Completed [facility] (varivax)(chicken 00:00:00 [place] [facility] Polio (IPV/OPV) 2006-08-09 Completed [facility] 00:00:00 [facility] DTAP 2006-08-09 Completed [facility] 00:00:00 [facility] HEPATITIS A 2006-08-09 Completed [facility] 00:00:00 [facility] MMR 2006-08-09 Completed [facility] 00:00:00 [facility] Polio (IPV/OPV) 2006-08-09 Completed [facility] 00:00:00 [facility] Varicella 2006-08-09 Completed [facility] (varivax)(chicken 00:00:00 [place] [facility] Polio (IPV/OPV) 2006-08-09 Completed [facility] 00:00:00 [facility] DTAP 2006-08-09 Completed [facility] 00:00:00 [facility] HEPATITIS A 2006-08-09 Completed [facility] 00:00:00 [facility] MMR 2006-08-09 Completed [facility] 00:00:00 [facility] Polio (IPV/OPV) 2006-08-09 Completed [facility] 00:00:00 [facility] Varicella 2006-08-09 Completed [facility] (varivax)(chicken 00:00:00 [place] [facility] Polio (IPV/OPV) 2006-08-09 Completed [facility] 00:00:00 [facility] DTAP 2006-08-09 Completed [facility] 00:00:00 [facility] HEPATITIS A 2006-08-09 Completed [facility] 00:00:00 [facility] MMR 2006-08-09 Completed [facility] 00:00:00 [facility] Polio (IPV/OPV) 2006-08-09 Completed [facility] 00:00:00 [facility] Varicella 2006-08-09 Completed [facility] (varivax)(chicken 00:00:00 [place] [facility] Polio (IPV/OPV) 2006-08-09 Completed [facility] 00:00:00 [facility] DTAP 2006-08-09 Completed [facility] 00:00:00 [facility] HEPATITIS A 2006-08-09 Completed [facility] 00:00:00 [facility] MMR 2006-08-09 Completed [facility] 00:00:00 [facility] Polio (IPV/OPV) 2006-08-09 Completed [facility] 00:00:00 [facility] Varicella 2006-08-09 Completed [facility] (varivax)(chicken 00:00:00 [place] [facility] Polio (IPV/OPV) 2006-08-09 Completed [facility] 00:00:00 [facility] DTAP 2006-08-09 Completed [facility] 00:00:00 [facility] HEPATITIS A 2006-08-09 Completed [facility] 00:00:00 [facility] MMR 2006-08-09 Completed [facility] 00:00:00 [facility] Polio (IPV/OPV) 2006-08-09 Completed [facility] 00:00:00 [facility] Varicella 2006-08-09 Completed [facility] (varivax)(chicken 00:00:00 [place] [facility] Polio (IPV/OPV) 2006-08-09 Completed [facility] 00:00:00 [facility] DTAP 2006-08-09 Completed [facility] 00:00:00 [facility] HEPATITIS A 2006-08-09 Completed [facility] 00:00:00 [facility] MMR 2006-08-09 Completed [facility] 00:00:00 [facility] Polio (IPV/OPV) 2006-08-09 Completed [facility] 00:00:00 [facility] Varicella 2006-08-09 Completed [facility] (varivax)(chicken 00:00:00 [place] [facility] Polio (IPV/OPV) 2006-08-09 Completed [facility] 00:00:00 [facility] DTAP 2006-08-09 Completed [facility] 00:00:00 [facility] HEPATITIS A 2006-08-09 Completed [facility] 00:00:00 [facility] MMR 2006-08-09 Completed [facility] 00:00:00 [facility] Polio (IPV/OPV) 2006-08-09 Completed [facility] 00:00:00 [facility] Varicella 2006-08-09 Completed [facility] (varivax)(chicken 00:00:00 [place] [facility] Polio (IPV/OPV) 2006-08-09 Completed [facility] 00:00:00 [facility] DTAP 2006-08-09 Completed [facility] 00:00:00 [facility] HEPATITIS A 2006-08-09 Completed [facility] 00:00:00 [facility] MMR 2006-08-09 Completed [facility] 00:00:00 [facility] Polio (IPV/OPV) 2006-08-09 Completed [facility] 00:00:00 [facility] Varicella 2006-08-09 Completed [facility] (varivax)(chicken 00:00:00 [place] [facility] pox) Branch Polio (IPV/OPV) 2006-08-09 Completed [facility] 00:00:00 [facility] DTAP 2006-08-09 Completed [facility] 00:00:00 [facility] HEPATITIS A 2006-08-09 Completed [facility] of 00:00:00 [facility] MMR 2006-08-09 Completed [facility] of 00:00:00 [facility] Polio (IPV/OPV) 2006-08-09 Completed [facility] 00:00:00 [facility] Varicella 2006-08-09 Completed [facility] of (varivax)(chicken 00:00:00 [place] [facility] pox) [facility] Polio (IPV/OPV) 2006-08-09 Completed [facility] 00:00:00 [facility] DTAP 2006-08-09 Completed [facility] 00:00:00 [facility] HEPATITIS A 2006-08-09 Completed [facility] of 00:00:00 [facility] MMR 2006-08-09 Completed [facility] of 00:00:00 [facility] Polio (IPV/OPV) 2006-08-09 Completed [facility] 00:00:00 [facility] Varicella 2006-08-09 Completed [facility] of (varivax)(chicken 00:00:00 [place] [facility] pox) [facility] Polio (IPV/OPV) 2006-08-09 Completed [facility] 00:00:00 [facility] DTAP 2006-08-09 Completed [facility] 00:00:00 [facility] HEPATITIS A 2006-08-09 Completed [facility] of 00:00:00 [facility] MMR 2006-08-09 Completed [facility] 00:00:00 [facility] Polio (IPV/OPV) 2006-08-09 Completed [facility] 00:00:00 [facility] Varicella 2006-08-09 Completed [facility] of (varivax)(chicken 00:00:00 [place] [facility] pox) [facility] Polio (IPV/OPV) 2006-08-09 Completed [facility] 00:00:00 [facility] DTAP 2006-08-09 Completed [facility] 00:00:00 [facility] HEPATITIS A 2006-08-09 Completed [facility] of 00:00:00 [facility] MMR 2006-08-09 Completed [facility] 00:00:00 [facility] Polio (IPV/OPV) 2006-08-09 Completed [facility] 00:00:00 [facility] Varicella 2006-08-09 Completed [facility] (varivax)(chicken 00:00:00 [place] [facility] pox) [facility] Polio (IPV/OPV) 2006-08-09 Completed [facility] 00:00:00 [facility] DTAP 2006-08-09 Completed [facility] of 00:00:00 [facility] HEPATITIS A 2006-08-09 Completed [facility] of 00:00:00 [facility] MMR 2006-08-09 Completed [facility] 00:00:00 [facility] Polio (IPV/OPV) 2006-08-09 Completed [facility] 00:00:00 [facility] Varicella 2006-08-09 Completed [facility] (varivax)(chicken 00:00:00 [place] [facility] pox) [facility] Polio (IPV/OPV) 2006-08-09 Completed [facility] 00:00:00 [facility] DTAP 2006-08-09 Completed [facility] of 00:00:00 [facility] HEPATITIS A 2006-08-09 Completed [facility] of 00:00:00 [facility] MMR 2006-08-09 Completed [facility] 00:00:00 [facility] Polio (IPV/OPV) 2006-08-09 Completed [facility] 00:00:00 [facility] Varicella 2006-08-09 Completed [facility] of (varivax)(chicken 00:00:00 [place] [facility] pox) Branch Polio (IPV/OPV) 2006-08-09 Completed [facility] 00:00:00 [facility] DTAP 2006-08-09 Completed [facility] 00:00:00 [facility] HEPATITIS A 2006-08-09 Completed [facility] of 00:00:00 [facility] MMR 2006-08-09 Completed [facility] of 00:00:00 [facility] Polio (IPV/OPV) 2006-08-09 Completed [facility] 00:00:00 [facility] Varicella 2006-08-09 Completed [facility] (varivax)(chicken 00:00:00 [place] [facility] pox) Branch Polio (IPV/OPV) 2006-08-09 Completed [facility] 00:00:00 [facility] DTAP 2006-08-09 Completed [facility] of 00:00:00 [facility] HEPATITIS A 2006-08-09 Completed [facility] of 00:00:00 [facility] MMR 2006-08-09 Completed [facility] of 00:00:00 [facility] Polio (IPV/OPV) 2006-08-09 Completed [facility] 00:00:00 [facility] Varicella 2006-08-09 Completed [facility] of (varivax)(chicken 00:00:00 [place] [facility] pox) Branch Polio (IPV/OPV) 2006-08-09 Completed [facility] 00:00:00 [facility] DTAP 2006-08-09 Completed [facility] of 00:00:00 [facility] HEPATITIS A 2006-08-09 Completed [facility] of 00:00:00 [facility] MMR 2006-08-09 Completed [facility] of 00:00:00 [facility] Polio (IPV/OPV) 2006-08-09 Completed [facility] 00:00:00 [facility] Varicella 2006-08-09 Completed [facility] of (varivax)(chicken 00:00:00 [place] [facility] pox) Branch Polio (IPV/OPV) 2006-08-09 Completed [facility] 00:00:00 [facility] DTAP 2006-08-09 Completed [facility] of 00:00:00 [facility] HEPATITIS A 2006-08-09 Completed [facility] of 00:00:00 [facility] MMR 2006-08-09 Completed [facility] of 00:00:00 [facility] Polio (IPV/OPV) 2006-08-09 Completed [facility] 00:00:00 [facility] Varicella 2006-08-09 Completed [facility] of (varivax)(chicken 00:00:00 [place] [facility] pox) Branch Polio (IPV/OPV) 2006-08-09 Completed [facility] 00:00:00 [facility] DTAP 2006-08-09 Completed [facility] of 00:00:00 [facility] HEPATITIS A 2006-08-09 Completed [facility] of 00:00:00 [facility] MMR 2006-08-09 Completed [facility] of 00:00:00 [facility] Polio (IPV/OPV) 2006-08-09 Completed [facility] 00:00:00 [facility] Varicella 2006-08-09 Completed [facility] of (varivax)(chicken 00:00:00 [facility] edical pox) Branch Polio (IPV/OPV) 2006-08-09 Completed [facility] 00:00:00 [facility] DTAP 2006-08-09 Completed [facility] of 00:00:00 [facility] HEPATITIS A 2006-08-09 Completed [facility] of 00:00:00 [facility] MMR 2006-08-09 Completed [facility] of 00:00:00 [facility] Polio (IPV/OPV) 2006-08-09 Completed [facility] 00:00:00 [facility] Varicella 2006-08-09 Completed [facility] of (varivax)(chicken 00:00:00 [place] [facility] pox) Branch Polio (IPV/OPV) 2006-08-09 Completed [facility] 00:00:00 [facility] DTAP 2006-08-09 Completed [facility] of 00:00:00 [facility] HEPATITIS A 2006-08-09 Completed [facility] of 00:00:00 [facility] MMR 2006-08-09 Completed [facility] of 00:00:00 [facility] Polio (IPV/OPV) 2006-08-09 Completed [facility] 00:00:00 [facility] Varicella 2006-08-09 Completed [facility] (varivax)(chicken 00:00:00 [place] [facility] pox) Branch Polio (IPV/OPV) 2006-08-09 Completed [facility] 00:00:00 [facility] DTAP 2006-08-09 Completed [facility] of 00:00:00 [facility] HEPATITIS A 2006-08-09 Completed [facility] of 00:00:00 [facility] MMR 2006-08-09 Completed [facility] of 00:00:00 [facility] Polio (IPV/OPV) 2006-08-09 Completed [facility] 00:00:00 [facility] Varicella 2006-08-09 Completed [facility] of (varivax)(chicken 00:00:00 [place] [facility] pox) Branch Polio (IPV/OPV) 2006-08-09 Completed [facility] 00:00:00 [facility] DTAP 2006-08-09 Completed [facility] of 00:00:00 [facility] HEPATITIS A 2006-08-09 Completed [facility] of 00:00:00 [facility] MMR 2006-08-09 Completed [facility] of 00:00:00 [facility] Polio (IPV/OPV) 2006-08-09 Completed [facility] 00:00:00 [facility] Varicella 2006-08-09 Completed [facility] of (varivax)(chicken 00:00:00 [place] [facility] pox) Branch Polio (IPV/OPV) 2006-08-09 Completed [facility] 00:00:00 [facility] HEPATITIS A 2005-10-25 Completed [facility] of 00:00:00 [facility] Hep B, Adol or Pedi 2005-10-25 Completed Unive rsity of Dosage 00:00:00 [facility] Pneumococcal 2005-10-25 Completed University o f Polysaccharide, 00:00:00 [place] [facility] PPSV23 (PNEUMOVAX) Branch Pneumococcal 2005-10-25 Completed [facility] o f Polysaccharide, 00:00:00 [place] [facility] PPSV23 (PNEUMOVAX) Branch HEPATITIS A 2005-10-25 Completed [facility] of 00:00:00 [facility] Hep B, Adol or Pedi 2005-10-25 Completed Unive rsity of Dosage 00:00:00 [facility] Pneumococcal 2005-10-25 Completed [facility] o f Polysaccharide, 00:00:00 [place] [facility] PPSV23 (PNEUMOVAX) Branch Pneumococcal 2005-10-25 Completed [facility] o f Polysaccharide, 00:00:00 [place] [facility] PPSV23 (PNEUMOVAX) Branch HEPATITIS A 2005-10-25 Completed [facility] of 00:00:00 [facility] Hep B, Adol or Pedi 2005-10-25 Completed Unive rsity of Dosage 00:00:00 [facility] Pneumococcal 2005-10-25 Completed [facility] o f Polysaccharide, 00:00:00 [place] [facility] PPSV23 (PNEUMOVAX) Branch Pneumococcal 2005-10-25 Completed [facility] o f Polysaccharide, 00:00:00 [place] [facility] PPSV23 (PNEUMOVAX) Branch HEPATITIS A 2005-10-25 Completed [facility] of 00:00:00 [facility] Hep B, Adol or Pedi 2005-10-25 Completed Unive rsity of Dosage 00:00:00 [facility] Pneumococcal 2005-10-25 Completed [facility] o f Polysaccharide, 00:00:00 [place] [facility] PPSV23 (PNEUMOVAX) Branch Pneumococcal 2005-10-25 Completed [facility] o f Polysaccharide, 00:00:00 [place] [facility] PPSV23 (PNEUMOVAX) Branch HEPATITIS A 2005-10-25 Completed [facility] of 00:00:00 [facility] Hep B, Adol or Pedi 2005-10-25 Completed Unive rsity of Dosage 00:00:00 [facility] Pneumococcal 2005-10-25 Completed [facility] o f Polysaccharide, 00:00:00 [place] [facility] PPSV23 (PNEUMOVAX) Branch Pneumococcal 2005-10-25 Completed [facility] o f Polysaccharide, 00:00:00 [place] [facility] PPSV23 (PNEUMOVAX) Branch HEPATITIS A 2005-10-25 Completed [facility] of 00:00:00 [facility] Hep B, Adol or Pedi 2005-10-25 Completed Unive rsity of Dosage 00:00:00 [facility] Pneumococcal 2005-10-25 Completed [facility] o f Polysaccharide, 00:00:00 [place] [facility] PPSV23 (PNEUMOVAX) Branch Pneumococcal 2005-10-25 Completed [facility] o f Polysaccharide, 00:00:00 [place] [facility] PPSV23 (PNEUMOVAX) Branch HEPATITIS A 2005-10-25 Completed [facility] of 00:00:00 [facility] Hep B, Adol or Pedi 2005-10-25 Completed Unive rsity of Dosage 00:00:00 [facility] Pneumococcal 2005-10-25 Completed [facility] o f Polysaccharide, 00:00:00 [place] [facility] PPSV23 (PNEUMOVAX) Branch Pneumococcal 2005-10-25 Completed [facility] o f Polysaccharide, 00:00:00 [place] [facility] PPSV23 (PNEUMOVAX) Branch HEPATITIS A 2005-10-25 Completed [facility] 00:00:00 [facility] Hep B, Adol or Pedi 2005-10-25 Completed Unive rsity of Dosage 00:00:00 [facility] Pneumococcal 2005-10-25 Completed [facility] o f Polysaccharide, 00:00:00 [place] [facility] PPSV23 (PNEUMOVAX) Branch Pneumococcal 2005-10-25 Completed [facility] o f Polysaccharide, 00:00:00 [place] [facility] PPSV23 (PNEUMOVAX) Branch HEPATITIS A 2005-10-25 Completed [facility] 00:00:00 [facility] Hep B, Adol or Pedi 2005-10-25 Completed Unive rsity of Dosage 00:00:00 [facility] Pneumococcal 2005-10-25 Completed [facility] o f Polysaccharide, 00:00:00 [place] [facility] PPSV23 (PNEUMOVAX) Branch Pneumococcal 2005-10-25 Completed [facility] o f Polysaccharide, 00:00:00 [place] [facility] PPSV23 (PNEUMOVAX) Branch HEPATITIS A 2005-10-25 Completed [facility] of 00:00:00 [facility] Hep B, Adol or Pedi 2005-10-25 Completed Unive rsity of Dosage 00:00:00 [facility] Pneumococcal 2005-10-25 Completed [facility] o f Polysaccharide, 00:00:00 [place] [facility] PPSV23 (PNEUMOVAX) Branch Pneumococcal 2005-10-25 Completed [facility] o f Polysaccharide, 00:00:00 [place] [facility] PPSV23 (PNEUMOVAX) Branch HEPATITIS A 2005-10-25 Completed [facility] 00:00:00 [facility] Hep B, Adol or Pedi 2005-10-25 Completed Unive rsity of Dosage 00:00:00 [facility] Pneumococcal 2005-10-25 Completed [facility] o f Polysaccharide, 00:00:00 [place] [facility] PPSV23 (PNEUMOVAX) Branch Pneumococcal 2005-10-25 Completed [facility] o f Polysaccharide, 00:00:00 [place] [facility] PPSV23 (PNEUMOVAX) Branch HEPATITIS A 2005-10-25 Completed [facility] 00:00:00 [facility] Hep B, Adol or Pedi 2005-10-25 Completed Unive rsity of Dosage 00:00:00 [facility] Pneumococcal 2005-10-25 Completed [facility] o f Polysaccharide, 00:00:00 [place] [facility] PPSV23 (PNEUMOVAX) Branch Pneumococcal 2005-10-25 Completed [facility] o f Polysaccharide, 00:00:00 [place] [facility] PPSV23 (PNEUMOVAX) Branch HEPATITIS A 2005-10-25 Completed [facility] 00:00:00 [facility] Hep B, Adol or Pedi 2005-10-25 Completed Unive rsity of Dosage 00:00:00 [facility] Pneumococcal 2005-10-25 Completed [facility] o f Polysaccharide, 00:00:00 [place] [facility] PPSV23 (PNEUMOVAX) Branch Pneumococcal 2005-10-25 Completed [facility] o f Polysaccharide, 00:00:00 [place] [facility] PPSV23 (PNEUMOVAX) Branch HEPATITIS A 2005-10-25 Completed [facility] of 00:00:00 [facility] Hep B, Adol or Pedi 2005-10-25 Completed Unive rsity of Dosage 00:00:00 [facility] Pneumococcal 2005-10-25 Completed [facility] o f Polysaccharide, 00:00:00 [place] [facility] PPSV23 (PNEUMOVAX) Branch Pneumococcal 2005-10-25 Completed [facility] o f Polysaccharide, 00:00:00 [place] [facility] PPSV23 (PNEUMOVAX) Branch HEPATITIS A 2005-10-25 Completed [facility] 00:00:00 [facility] Hep B, Adol or Pedi 2005-10-25 Completed Unive rsity of Dosage 00:00:00 [facility] Pneumococcal 2005-10-25 Completed [facility] o f Polysaccharide, 00:00:00 [place] [facility] PPSV23 (PNEUMOVAX) Branch Pneumococcal 2005-10-25 Completed [facility] o f Polysaccharide, 00:00:00 [place] [facility] PPSV23 (PNEUMOVAX) Branch HEPATITIS A 2005-10-25 Completed [facility] 00:00:00 [facility] Hep B, Adol or Pedi 2005-10-25 Completed Unive rsity of Dosage 00:00:00 [facility] Pneumococcal 2005-10-25 Completed [facility] o f Polysaccharide, 00:00:00 [place] [facility] PPSV23 (PNEUMOVAX) Branch Pneumococcal 2005-10-25 Completed [facility] o f Polysaccharide, 00:00:00 [place] [facility] PPSV23 (PNEUMOVAX) Branch HEPATITIS A 2005-10-25 Completed [facility] 00:00:00 [facility] Hep B, Adol or Pedi 2005-10-25 Completed Unive rsity of Dosage 00:00:00 [facility] Pneumococcal 2005-10-25 Completed [facility] o f Polysaccharide, 00:00:00 [place] [facility] PPSV23 (PNEUMOVAX) Branch Pneumococcal 2005-10-25 Completed [facility] o f Polysaccharide, 00:00:00 [place] [facility] PPSV23 (PNEUMOVAX) Branch HEPATITIS A 2005-10-25 Completed [facility] 00:00:00 [facility] Hep B, Adol or Pedi 2005-10-25 Completed Unive rsity of Dosage 00:00:00 [facility] Pneumococcal 2005-10-25 Completed [facility] o f Polysaccharide, 00:00:00 [place] [facility] PPSV23 (PNEUMOVAX) Branch Pneumococcal 2005-10-25 Completed [facility] o f Polysaccharide, 00:00:00 [place] [facility] PPSV23 (PNEUMOVAX) Branch HEPATITIS A 2005-10-25 Completed [facility] 00:00:00 [facility] Hep B, Adol or Pedi 2005-10-25 Completed Unive rsity of Dosage 00:00:00 [facility] Pneumococcal 2005-10-25 Completed [facility] o f Polysaccharide, 00:00:00 [place] [facility] PPSV23 (PNEUMOVAX) Branch Pneumococcal 2005-10-25 Completed [facility] o f Polysaccharide, 00:00:00 [place] [facility] PPSV23 (PNEUMOVAX) Branch HEPATITIS A 2005-10-25 Completed [facility] 00:00:00 [facility] Hep B, Adol or Pedi 2005-10-25 Completed Unive rsity of Dosage 00:00:00 [facility] Pneumococcal 2005-10-25 Completed [facility] o f Polysaccharide, 00:00:00 [place] [facility] PPSV23 (PNEUMOVAX) Branch Pneumococcal 2005-10-25 Completed [facility] o f Polysaccharide, 00:00:00 [place] [facility] PPSV23 (PNEUMOVAX) Branch HEPATITIS A 2005-10-25 Completed [facility] 00:00:00 [facility] Hep B, Adol or Pedi 2005-10-25 Completed Unive rsity of Dosage 00:00:00 [facility] Pneumococcal 2005-10-25 Completed [facility] o f Polysaccharide, 00:00:00 [place] [facility] PPSV23 (PNEUMOVAX) Branch Pneumococcal 2005-10-25 Completed [facility] o f Polysaccharide, 00:00:00 [place] [facility] PPSV23 (PNEUMOVAX) Branch HEPATITIS A 2005-10-25 Completed [facility] 00:00:00 [facility] Hep B, Adol or Pedi 2005-10-25 Completed Unive rsity of Dosage 00:00:00 [facility] Pneumococcal 2005-10-25 Completed [facility] o f Polysaccharide, 00:00:00 [place] [facility] PPSV23 (PNEUMOVAX) Branch Pneumococcal 2005-10-25 Completed [facility] o f Polysaccharide, 00:00:00 [place] [facility] PPSV23 (PNEUMOVAX) Branch HEPATITIS A 2005-10-25 Completed [facility] 00:00:00 [facility] Hep B, Adol or Pedi 2005-10-25 Completed Unive rsity of Dosage 00:00:00 [facility] Pneumococcal 2005-10-25 Completed [facility] o f Polysaccharide, 00:00:00 [place] [facility] PPSV23 (PNEUMOVAX) Branch Pneumococcal 2005-10-25 Completed [facility] o f Polysaccharide, 00:00:00 [place] [facility] PPSV23 (PNEUMOVAX) Branch HEPATITIS A 2005-10-25 Completed [facility] 00:00:00 [facility] Hep B, Adol or Pedi 2005-10-25 Completed Unive rsity of Dosage 00:00:00 [facility] Pneumococcal 2005-10-25 Completed [facility] o f Polysaccharide, 00:00:00 [place] [facility] PPSV23 (PNEUMOVAX) Branch Pneumococcal 2005-10-25 Completed [facility] o f Polysaccharide, 00:00:00 [place] [facility] PPSV23 (PNEUMOVAX) Branch HEPATITIS A 2005-10-25 Completed [facility] 00:00:00 [facility] Hep B, Adol or Pedi 2005-10-25 Completed Unive rsity of Dosage 00:00:00 [facility] Pneumococcal 2005-10-25 Completed [facility] o f Polysaccharide, 00:00:00 [place] [facility] PPSV23 (PNEUMOVAX) Branch Pneumococcal 2005-10-25 Completed [facility] o f Polysaccharide, 00:00:00 [place] [facility] PPSV23 (PNEUMOVAX) Branch HEPATITIS A 2005-10-25 Completed [facility] 00:00:00 [facility] Hep B, Adol or Pedi 2005-10-25 Completed Unive rsity of Dosage 00:00:00 [facility] Pneumococcal 2005-10-25 Completed [facility] o f Polysaccharide, 00:00:00 [place] [facility] PPSV23 (PNEUMOVAX) Branch Pneumococcal 2005-10-25 Completed [facility] o f Polysaccharide, 00:00:00 [place] [facility] PPSV23 (PNEUMOVAX) Branch HEPATITIS A 2005-10-25 Completed [facility] 00:00:00 [facility] Hep B, Adol or Pedi 2005-10-25 Completed Unive rsity of Dosage 00:00:00 [facility] Pneumococcal 2005-10-25 Completed [facility] o f Polysaccharide, 00:00:00 [place] [facility] PPSV23 (PNEUMOVAX) Branch Pneumococcal 2005-10-25 Completed [facility] o f Polysaccharide, 00:00:00 [place] [facility] PPSV23 (PNEUMOVAX) Branch HEPATITIS A 2005-10-25 Completed [facility] 00:00:00 [facility] Hep B, Adol or Pedi 2005-10-25 Completed Unive rsity of Dosage 00:00:00 [facility] Pneumococcal 2005-10-25 Completed [facility] o f Polysaccharide, 00:00:00 [place] [facility] PPSV23 (PNEUMOVAX) Branch Pneumococcal 2005-10-25 Completed [facility] o f Polysaccharide, 00:00:00 [place] [facility] PPSV23 (PNEUMOVAX) Branch HEPATITIS A 2005-10-25 Completed [facility] 00:00:00 [facility] Hep B, Adol or Pedi 2005-10-25 Completed Unive rsity of Dosage 00:00:00 [facility] Pneumococcal 2005-10-25 Completed [facility] o f Polysaccharide, 00:00:00 [place] [facility] PPSV23 (PNEUMOVAX) Branch Pneumococcal 2005-10-25 Completed [facility] o f Polysaccharide, 00:00:00 [place] [facility] PPSV23 (PNEUMOVAX) Branch HEPATITIS A 2005-10-25 Completed [facility] 00:00:00 [facility] Hep B, Adol or Pedi 2005-10-25 Completed Unive rsity of Dosage 00:00:00 [facility] Pneumococcal 2005-10-25 Completed [facility] o f Polysaccharide, 00:00:00 [place] [facility] PPSV23 (PNEUMOVAX) Branch Pneumococcal 2005-10-25 Completed [facility] o f Polysaccharide, 00:00:00 [place] [facility] PPSV23 (PNEUMOVAX) Branch HEPATITIS A 2005-10-25 Completed [facility] 00:00:00 [facility] Hep B, Adol or Pedi 2005-10-25 Completed Unive rsity of Dosage 00:00:00 [facility] Pneumococcal 2005-10-25 Completed [facility] o f Polysaccharide, 00:00:00 [place] [facility] PPSV23 (PNEUMOVAX) Branch Pneumococcal 2005-10-25 Completed [facility] o f Polysaccharide, 00:00:00 [place] [facility] PPSV23 (PNEUMOVAX) Branch HEPATITIS A 2005-10-25 Completed [facility] 00:00:00 [facility] Hep B, Adol or Pedi 2005-10-25 Completed Unive rsity of Dosage 00:00:00 [facility] Pneumococcal 2005-10-25 Completed [facility] o f Polysaccharide, 00:00:00 [place] [facility] PPSV23 (PNEUMOVAX) Branch Pneumococcal 2005-10-25 Completed [facility] o f Polysaccharide, 00:00:00 [place] [facility] PPSV23 (PNEUMOVAX) Branch HEPATITIS A 2005-10-25 Completed [facility] 00:00:00 [facility] Hep B, Adol or Pedi 2005-10-25 Completed Unive rsity of Dosage 00:00:00 [facility] Pneumococcal 2005-10-25 Completed [facility] o f Polysaccharide, 00:00:00 [place] [facility] PPSV23 (PNEUMOVAX) Branch Pneumococcal 2005-10-25 Completed [facility] o f Polysaccharide, 00:00:00 [place] [facility] PPSV23 (PNEUMOVAX) Branch HEPATITIS A 2005-10-25 Completed [facility] 00:00:00 [facility] Hep B, Adol or Pedi 2005-10-25 Completed Unive rsity of Dosage 00:00:00 [facility] Pneumococcal 2005-10-25 Completed [facility] o f Polysaccharide, 00:00:00 [place] [facility] PPSV23 (PNEUMOVAX) Branch Pneumococcal 2005-10-25 Completed [facility] o f Polysaccharide, 00:00:00 [place] [facility] PPSV23 (PNEUMOVAX) Branch HEPATITIS A 2005-10-25 Completed [facility] 00:00:00 [facility] Hep B, Adol or Pedi 2005-10-25 Completed Unive rsity of Dosage 00:00:00 [facility] Pneumococcal 2005-10-25 Completed [facility] o f Polysaccharide, 00:00:00 [place] [facility] PPSV23 (PNEUMOVAX) Branch Pneumococcal 2005-10-25 Completed [facility] o f Polysaccharide, 00:00:00 [place] [facility] PPSV23 (PNEUMOVAX) Branch HEPATITIS A 2005-10-25 Completed [facility] 00:00:00 [facility] Hep B, Adol or Pedi 2005-10-25 Completed Unive rsity of Dosage 00:00:00 [facility] Pneumococcal 2005-10-25 Completed [facility] o f Polysaccharide, 00:00:00 [place] [facility] PPSV23 (PNEUMOVAX) Branch Pneumococcal 2005-10-25 Completed [facility] o f Polysaccharide, 00:00:00 [place] [facility] PPSV23 (PNEUMOVAX) Branch HEPATITIS A 2005-10-25 Completed [facility] 00:00:00 [facility] Hep B, Adol or Pedi 2005-10-25 Completed Unive rsity of Dosage 00:00:00 [facility] Pneumococcal 2005-10-25 Completed [facility] o f Polysaccharide, 00:00:00 [place] [facility] PPSV23 (PNEUMOVAX) Branch Pneumococcal 2005-10-25 Completed [facility] o f Polysaccharide, 00:00:00 [place] [facility] PPSV23 (PNEUMOVAX) Branch HEPATITIS A 2005-10-25 Completed [facility] 00:00:00 [facility] Hep B, Adol or Pedi 2005-10-25 Completed [facility] rsity of Dosage 00:00:00 [facility] Pneumococcal 2005-10-25 Completed [facility] Polysaccharide, 00:00:00 [place] [facility] PPSV23 (PNEUMOVAX) Branch Pneumococcal 2005-10-25 Completed [facility] Polysaccharide, 00:00:00 [place] [facility] PPSV23 (PNEUMOVAX) Branch HEPATITIS A 2005-10-25 Completed [facility] of 00:00:00 [facility] Hep B, Adol or Pedi 2005-10-25 Completed Unive rsity of Dosage 00:00:00 [facility] Pneumococcal 2005-10-25 Completed [facility] Polysaccharide, 00:00:00 [facility] PPSV23 (PNEUMOVAX) Branch Pneumococcal 2005-10-25 Completed [facility] Polysaccharide, 00:00:00 [place] [facility] PPSV23 (PNEUMOVAX) Branch HEPATITIS A 2005-10-25 Completed [facility] 00:00:00 [facility] Hep B, Adol or Pedi 2005-10-25 Completed [facility] of Dosage 00:00:00 [facility] Pneumococcal 2005-10-25 Completed [facility] Polysaccharide, 00:00:00 [place] [facility] PPSV23 (PNEUMOVAX) Branch Pneumococcal 2005-10-25 Completed [facility] Polysaccharide, 00:00:00 [place] [facility] PPSV23 (PNEUMOVAX) Branch HEPATITIS A 2005-10-25 Completed [facility] 00:00:00 [facility] Hep B, Adol or Pedi 2005-10-25 Completed [facility] of Dosage 00:00:00 [facility] Pneumococcal 2005-10-25 Completed [facility] Polysaccharide, 00:00:00 [place] [facility] PPSV23 (PNEUMOVAX) Branch Pneumococcal 2005-10-25 Completed [facility] Polysaccharide, 00:00:00 [place] [facility] PPSV23 (PNEUMOVAX) Branch HEPATITIS A 2005-10-25 Completed [facility] 00:00:00 [facility] Hep B, Adol or Pedi 2005-10-25 Completed [facility] of Dosage 00:00:00 [facility] Pneumococcal 2005-10-25 Completed [facility] Polysaccharide, 00:00:00 [place] [facility] PPSV23 (PNEUMOVAX) Branch Pneumococcal 2005-10-25 Completed [facility] Polysaccharide, 00:00:00 [place] [facility] PPSV23 (PNEUMOVAX) Branch HEPATITIS A 2005-10-25 Completed [facility] 00:00:00 [facility] Hep B, Adol or Pedi 2005-10-25 Completed [facility] of Dosage 00:00:00 [facility] Pneumococcal 2005-10-25 Completed [facility] Polysaccharide, 00:00:00 [place] [facility] PPSV23 (PNEUMOVAX) Branch Pneumococcal 2005-10-25 Completed [facility] Polysaccharide, 00:00:00 [place] [facility] PPSV23 (PNEUMOVAX) Branch HEPATITIS A 2005-10-25 Completed [facility] 00:00:00 [facility] Hep B, Adol or Pedi 2005-10-25 Completed [facility] of Dosage 00:00:00 [facility] Pneumococcal 2005-10-25 Completed [facility] Polysaccharide, 00:00:00 [place] [facility] PPSV23 (PNEUMOVAX) Branch Pneumococcal 2005-10-25 Completed [facility] Polysaccharide, 00:00:00 [place] [facility] PPSV23 (PNEUMOVAX) Branch HEPATITIS A 2005-10-25 Completed [facility] 00:00:00 [facility] Hep B, Adol or Pedi 2005-10-25 Completed [facility] of Dosage 00:00:00 [facility] Pneumococcal 2005-10-25 Completed [facility] Polysaccharide, 00:00:00 [place] [facility] PPSV23 (PNEUMOVAX) Branch Pneumococcal 2005-10-25 Completed [facility] Polysaccharide, 00:00:00 [place] [facility] PPSV23 (PNEUMOVAX) Branch HEPATITIS A 2005-10-25 Completed [facility] 00:00:00 [facility] Hep B, Adol or Pedi 2005-10-25 Completed [facility] of Dosage 00:00:00 [facility] Pneumococcal 2005-10-25 Completed [facility] Polysaccharide, 00:00:00 [place] [facility] PPSV23 (PNEUMOVAX) Branch Pneumococcal 2005-10-25 Completed [facility] Polysaccharide, 00:00:00 [place] [facility] PPSV23 (PNEUMOVAX) Branch HEPATITIS A 2005-10-25 Completed [facility] 00:00:00 [facility] Hep B, Adol or Pedi 2005-10-25 Completed [facility] of Dosage 00:00:00 [facility] Pneumococcal 2005-10-25 Completed [facility] Polysaccharide, 00:00:00 [place] [facility] PPSV23 (PNEUMOVAX) Branch Pneumococcal 2005-10-25 Completed [facility] Polysaccharide, 00:00:00 [place] [facility] PPSV23 (PNEUMOVAX) Branch HEPATITIS A 2005-10-25 Completed [facility] 00:00:00 [facility] Hep B, Adol or Pedi 2005-10-25 Completed [facility] Dosage 00:00:00 [facility] Pneumococcal 2005-10-25 Completed [facility] Polysaccharide, 00:00:00 [place] [facility] PPSV23 (PNEUMOVAX) Branch Pneumococcal 2005-10-25 Completed [facility] Polysaccharide, 00:00:00 [place] [facility] PPSV23 (PNEUMOVAX) Branch HEPATITIS A 2005-10-25 Completed [facility] 00:00:00 [facility] Hep B, Adol or Pedi 2005-10-25 Completed [facility] of Dosage 00:00:00 [facility] Pneumococcal 2005-10-25 Completed [facility] Polysaccharide, 00:00:00 [place] [facility] PPSV23 (PNEUMOVAX) Branch Pneumococcal 2005-10-25 Completed [facility] Polysaccharide, 00:00:00 [place] [facility] PPSV23 (PNEUMOVAX) Branch HEPATITIS A 2005-10-25 Completed [facility] 00:00:00 [facility] Hep B, Adol or Pedi 2005-10-25 Completed [facility] of Dosage 00:00:00 [facility] Pneumococcal 2005-10-25 Completed [facility] Polysaccharide, 00:00:00 [place] [facility] PPSV23 (PNEUMOVAX) Branch Pneumococcal 2005-10-25 Completed [facility] Polysaccharide, 00:00:00 [place] [facility] PPSV23 (PNEUMOVAX) Branch DTAP 2003-10-13 Completed [facility] 00:00:00 [facility] HIB 4 Dose Schedule 2003-10-13 Completed [facility]ive rsity of 00:00:00 [facility] Polio (IPV/OPV) 2003-10-13 Completed [facility] 00:00:00 [facility] DTAP 2003-10-13 Completed [facility] of 00:00:00 [facility] HIB 4 Dose Schedule 2003-10-13 Completed [facility]ive [facility]ity of 00:00:00 [facility] Polio (IPV/OPV) 2003-10-13 Completed [facility] 00:00:00 [facility] DTAP 2003-10-13 Completed [facility] 00:00:00 [facility] HIB 4 Dose Schedule 2003-10-13 Completed [facility] of 00:00:00 [facility] Polio (IPV/OPV) 2003-10-13 Completed [facility] 00:00:00 [facility] DTAP 2003-10-13 Completed [facility] 00:00:00 [facility] HIB 4 Dose Schedule 2003-10-13 Completed [facility]ity of 00:00:00 [facility] Polio (IPV/OPV) 2003-10-13 Completed [facility] 00:00:00 [facility] DTAP 2003-10-13 Completed [facility] 00:00:00 [facility] HIB 4 Dose Schedule 2003-10-13 Completed [facility] of 00:00:00 [facility] Polio (IPV/OPV) 2003-10-13 Completed [facility] 00:00:00 [facility] DTAP 2003-10-13 Completed [facility] 00:00:00 [facility] HIB 4 Dose Schedule 2003-10-13 Completed [facility] of 00:00:00 [facility] Polio (IPV/OPV) 2003-10-13 Completed [facility] 00:00:00 [facility] DTAP 2003-10-13 Completed [facility] 00:00:00 [facility] HIB 4 Dose Schedule 2003-10-13 Completed [facility] of 00:00:00 [facility] Polio (IPV/OPV) 2003-10-13 Completed [facility] 00:00:00 [facility] DTAP 2003-10-13 Completed [facility] 00:00:00 [facility] HIB 4 Dose Schedule 2003-10-13 Completed [facility] of 00:00:00 [facility] Polio (IPV/OPV) 2003-10-13 Completed [facility] 00:00:00 [facility] DTAP 2003-10-13 Completed [facility] 00:00:00 [facility] HIB 4 Dose Schedule 2003-10-13 Completed [facility] of 00:00:00 [facility] Polio (IPV/OPV) 2003-10-13 Completed [facility] 00:00:00 [facility] DTAP 2003-10-13 Completed [facility] 00:00:00 [facility] HIB 4 Dose Schedule 2003-10-13 Completed [facility]ity of 00:00:00 [facility] Polio (IPV/OPV) 2003-10-13 Completed [facility] 00:00:00 [facility] DTAP 2003-10-13 Completed [facility] of 00:00:00 [facility] HIB 4 Dose Schedule 2003-10-13 Completed [facility]ity of 00:00:00 [facility] Polio (IPV/OPV) 2003-10-13 Completed [facility] 00:00:00 [facility] DTAP 2003-10-13 Completed [facility] 00:00:00 [facility] HIB 4 Dose Schedule 2003-10-13 Completed [facility] rsity of 00:00:00 [facility] Polio (IPV/OPV) 2003-10-13 Completed [facility] 00:00:00 [facility] DTAP 2003-10-13 Completed [facility] 00:00:00 [facility] HIB 4 Dose Schedule 2003-10-13 Completed [facility]ity of 00:00:00 [facility] Polio (IPV/OPV) 2003-10-13 Completed [facility] 00:00:00 [facility] DTAP 2003-10-13 Completed [facility] 00:00:00 [facility] HIB 4 Dose Schedule 2003-10-13 Completed [facility]ity of 00:00:00 [facility] Polio (IPV/OPV) 2003-10-13 Completed [facility] of 00:00:00 [facility] DTAP 2003-10-13 Completed [facility] 00:00:00 [facility] HIB 4 Dose Schedule 2003-10-13 Completed [facility]ive [facility]ity of 00:00:00 [facility] Polio (IPV/OPV) 2003-10-13 Completed [facility] 00:00:00 [facility] DTAP 2003-10-13 Completed [facility] of 00:00:00 [facility] HIB 4 Dose Schedule 2003-10-13 Completed [facility] of 00:00:00 [facility] Polio (IPV/OPV) 2003-10-13 Completed [facility] 00:00:00 [facility] DTAP 2003-10-13 Completed [facility] 00:00:00 [facility] HIB 4 Dose Schedule 2003-10-13 Completed [facility] of 00:00:00 [facility] Polio (IPV/OPV) 2003-10-13 Completed [facility] 00:00:00 [facility] DTAP 2003-10-13 Completed [facility] 00:00:00 [facility] HIB 4 Dose Schedule 2003-10-13 Completed [facility] of 00:00:00 [facility] Polio (IPV/OPV) 2003-10-13 Completed [facility] 00:00:00 [facility] DTAP 2003-10-13 Completed [facility] 00:00:00 [facility] HIB 4 Dose Schedule 2003-10-13 Completed [facility] of 00:00:00 [facility] Polio (IPV/OPV) 2003-10-13 Completed [facility] 00:00:00 [facility] DTAP 2003-10-13 Completed [facility] 00:00:00 [facility] HIB 4 Dose Schedule 2003-10-13 Completed [facility] of 00:00:00 [facility] Polio (IPV/OPV) 2003-10-13 Completed [facility] 00:00:00 [facility] DTAP 2003-10-13 Completed [facility] 00:00:00 [facility] HIB 4 Dose Schedule 2003-10-13 Completed [facility] of 00:00:00 [facility] Polio (IPV/OPV) 2003-10-13 Completed [facility] 00:00:00 [facility] DTAP 2003-10-13 Completed [facility] 00:00:00 [facility] HIB 4 Dose Schedule 2003-10-13 Completed [facility] of 00:00:00 [facility] Polio (IPV/OPV) 2003-10-13 Completed [facility] 00:00:00 [facility] DTAP 2003-10-13 Completed [facility] 00:00:00 [facility] HIB 4 Dose Schedule 2003-10-13 Completed [facility] of 00:00:00 [facility] Polio (IPV/OPV) 2003-10-13 Completed [facility] 00:00:00 [facility] DTAP 2003-10-13 Completed [facility] 00:00:00 [facility] HIB 4 Dose Schedule 2003-10-13 Completed [facility] of 00:00:00 [facility] Polio (IPV/OPV) 2003-10-13 Completed [facility] 00:00:00 [facility] DTAP 2003-10-13 Completed [facility] 00:00:00 [facility] HIB 4 Dose Schedule 2003-10-13 Completed [facility] of 00:00:00 [facility] Polio (IPV/OPV) 2003-10-13 Completed [facility] 00:00:00 [facility] DTAP 2003-10-13 Completed [facility] 00:00:00 [facility] HIB 4 Dose Schedule 2003-10-13 Completed [facility] of 00:00:00 [facility] Polio (IPV/OPV) 2003-10-13 Completed [facility] 00:00:00 [facility] DTAP 2003-10-13 Completed [facility] 00:00:00 [facility] HIB 4 Dose Schedule 2003-10-13 Completed [facility] of 00:00:00 [facility] Polio (IPV/OPV) 2003-10-13 Completed [facility] 00:00:00 [facility] DTAP 2003-10-13 Completed [facility] 00:00:00 [facility] HIB 4 Dose Schedule 2003-10-13 Completed [facility] of 00:00:00 [facility] Polio (IPV/OPV) 2003-10-13 Completed [facility] 00:00:00 [facility] DTAP 2003-10-13 Completed [facility] 00:00:00 [facility] HIB 4 Dose Schedule 2003-10-13 Completed [facility] of 00:00:00 [facility] Polio (IPV/OPV) 2003-10-13 Completed [facility] 00:00:00 [facility] DTAP 2003-10-13 Completed [facility] 00:00:00 [facility] HIB 4 Dose Schedule 2003-10-13 Completed [facility] of 00:00:00 [facility] Polio (IPV/OPV) 2003-10-13 Completed [facility] 00:00:00 [facility] DTAP 2003-10-13 Completed [facility] 00:00:00 [facility] HIB 4 Dose Schedule 2003-10-13 Completed [facility] of 00:00:00 [facility] Polio (IPV/OPV) 2003-10-13 Completed [facility] 00:00:00 [facility] DTAP 2003-10-13 Completed [facility] 00:00:00 [facility] HIB 4 Dose Schedule 2003-10-13 Completed [facility] of 00:00:00 [facility] Polio (IPV/OPV) 2003-10-13 Completed [facility] 00:00:00 [facility] DTAP 2003-10-13 Completed [facility] 00:00:00 [facility] HIB 4 Dose Schedule 2003-10-13 Completed [facility] of 00:00:00 [facility] Polio (IPV/OPV) 2003-10-13 Completed [facility] 00:00:00 [facility] DTAP 2003-10-13 Completed [facility] 00:00:00 [facility] HIB 4 Dose Schedule 2003-10-13 Completed [facility] of 00:00:00 [facility] Polio (IPV/OPV) 2003-10-13 Completed [facility] 00:00:00 [facility] DTAP 2003-10-13 Completed [facility] 00:00:00 [facility] HIB 4 Dose Schedule 2003-10-13 Completed [facility] of 00:00:00 [facility] Polio (IPV/OPV) 2003-10-13 Completed [facility] 00:00:00 [facility] DTAP 2003-10-13 Completed [facility] 00:00:00 [facility] HIB 4 Dose Schedule 2003-10-13 Completed [facility] of 00:00:00 [facility] Polio (IPV/OPV) 2003-10-13 Completed [facility] 00:00:00 [facility] DTAP 2003-10-13 Completed [facility] 00:00:00 [facility] HIB 4 Dose Schedule 2003-10-13 Completed [facility] of 00:00:00 [facility] Polio (IPV/OPV) 2003-10-13 Completed [facility] 00:00:00 [facility] DTAP 2003-10-13 Completed [facility] 00:00:00 [facility] HIB 4 Dose Schedule 2003-10-13 Completed [facility] of 00:00:00 [facility] Polio (IPV/OPV) 2003-10-13 Completed [facility] 00:00:00 [facility] DTAP 2003-10-13 Completed [facility] 00:00:00 [facility] HIB 4 Dose Schedule 2003-10-13 Completed [facility] of 00:00:00 [facility] Polio (IPV/OPV) 2003-10-13 Completed [facility] 00:00:00 [facility] DTAP 2003-10-13 Completed [facility] 00:00:00 [facility] HIB 4 Dose Schedule 2003-10-13 Completed [facility] of 00:00:00 [facility] Polio (IPV/OPV) 2003-10-13 Completed [facility] 00:00:00 [facility] DTAP 2003-10-13 Completed [facility] 00:00:00 [facility] HIB 4 Dose Schedule 2003-10-13 Completed [facility] 00:00:00 [facility] Polio (IPV/OPV) 2003-10-13 Completed [facility] 00:00:00 [facility] DTAP 2003-10-13 Completed [facility] 00:00:00 [facility] HIB 4 Dose Schedule 2003-10-13 Completed [facility] of 00:00:00 [facility] Polio (IPV/OPV) 2003-10-13 Completed [facility] 00:00:00 [facility] DTAP 2003-10-13 Completed [facility] 00:00:00 [facility] HIB 4 Dose Schedule 2003-10-13 Completed [facility] of 00:00:00 [facility] Polio (IPV/OPV) 2003-10-13 Completed [facility] 00:00:00 [facility] DTAP 2003-10-13 Completed [facility] 00:00:00 [facility] HIB 4 Dose Schedule 2003-10-13 Completed [facility] of 00:00:00 [facility] Polio (IPV/OPV) 2003-10-13 Completed [facility] 00:00:00 [facility] DTAP 2003-10-13 Completed [facility] 00:00:00 [facility] HIB 4 Dose Schedule 2003-10-13 Completed [facility] of 00:00:00 [facility] Polio (IPV/OPV) 2003-10-13 Completed [facility] 00:00:00 [facility] DTAP 2003-10-13 Completed [facility] 00:00:00 [facility] HIB 4 Dose Schedule 2003-10-13 Completed [facility] of 00:00:00 [facility] Polio (IPV/OPV) 2003-10-13 Completed [facility] 00:00:00 [facility] DTAP 2003-10-13 Completed [facility] 00:00:00 [facility] HIB 4 Dose Schedule 2003-10-13 Completed [facility] of 00:00:00 [facility] Polio (IPV/OPV) 2003-10-13 Completed [facility] 00:00:00 [facility] DTAP 2003-10-13 Completed [facility] 00:00:00 [facility] HIB 4 Dose Schedule 2003-10-13 Completed [facility] of 00:00:00 [facility] Polio (IPV/OPV) 2003-10-13 Completed [facility] 00:00:00 [facility] DTAP 2003-10-13 Completed [facility] 00:00:00 [facility] HIB 4 Dose Schedule 2003-10-13 Completed [facility] of 00:00:00 [facility] Polio (IPV/OPV) 2003-10-13 Completed [facility] 00:00:00 [facility] DTAP 2003-10-13 Completed [facility] 00:00:00 [facility] HIB 4 Dose Schedule 2003-10-13 Completed [facility] of 00:00:00 [facility] Polio (IPV/OPV) 2003-10-13 Completed [facility] 00:00:00 [facility] MMR 2003-07-08 Completed [facility] 00:00:00 [facility] Pneumococcal 2003-07-08 Completed [facility] Polysaccharide, 00:00:00 [facility] PPSV23 (PNEUMOVAX) [facility] Varicella 2003-07-08 Completed [facility] of (varivax)(chicken 00:00:00 [facility] pox) [facility] MMR 2003-07-08 Completed [facility] 00:00:00 [facility] Pneumococcal 2003-07-08 Completed [facility] Polysaccharide, 00:00:00 [facility] PPSV23 (PNEUMOVAX) [facility] Varicella 2003-07-08 Completed [facility] (varivax)(chicken 00:00:00 [facility] pox) [facility] MMR 2003-07-08 Completed [facility] 00:00:00 [facility] Pneumococcal 2003-07-08 Completed [facility] Polysaccharide, 00:00:00 [facility] PPSV23 (PNEUMOVAX) [facility] Varicella 2003-07-08 Completed [facility] (varivax)(chicken 00:00:00 [facility] pox) [facility] MMR 2003-07-08 Completed [facility] 00:00:00 [facility] Pneumococcal 2003-07-08 Completed [facility] Polysaccharide, 00:00:00 [facility] PPSV23 (PNEUMOVAX) [facility] Varicella 2003-07-08 Completed [facility] (varivax)(chicken 00:00:00 [facility] pox) [facility] MMR 2003-07-08 Completed [facility] 00:00:00 [facility] Pneumococcal 2003-07-08 Completed [facility] f Polysaccharide, 00:00:00 [facility] PPSV23 (PNEUMOVAX) Branch Varicella 2003-07-08 Completed [facility] (varivax)(chicken 00:00:00 [place] [facility] pox) [facility] MMR 2003-07-08 Completed [facility] 00:00:00 [facility] Pneumococcal 2003-07-08 Completed [facility] Polysaccharide, 00:00:00 [facility] PPSV23 (PNEUMOVAX) [facility] Varicella 2003-07-08 Completed [facility] (varivax)(chicken 00:00:00 [facility] pox) [facility] MMR 2003-07-08 Completed [facility] 00:00:00 [facility] Pneumococcal 2003-07-08 Completed [facility] Polysaccharide, 00:00:00 [facility] PPSV23 (PNEUMOVAX) [facility] Varicella 2003-07-08 Completed [facility] (varivax)(chicken 00:00:00 [facility] 2003-07-08 Completed [facility] 00:00:00 [facility] Pneumococcal 2003-07-08 Completed [facility] f Polysaccharide, 00:00:00 [facility] PPSV23 (PNEUMOVAX) [facility] Varicella 2003-07-08 Completed [facility] (varivax)(chicken 00:00:00 [facility] pox) [facility] MMR 2003-07-08 Completed [facility] 00:00:00 [facility] Pneumococcal 2003-07-08 Completed [facility] Polysaccharide, 00:00:00 [facility] PPSV23 (PNEUMOVAX) [facility] Varicella 2003-07-08 Completed [facility] (varivax)(chicken 00:00:00 [facility] 2003-07-08 Completed [facility] 00:00:00 [facility] Pneumococcal 2003-07-08 Completed [facility] o f Polysaccharide, 00:00:00 [facility] PPSV23 (PNEUMOVAX) [facility] Varicella 2003-07-08 Completed [facility] (varivax)(chicken 00:00:00 [facility] 2003-07-08 Completed [facility] 00:00:00 [facility] Pneumococcal 2003-07-08 Completed [facility] Polysaccharide, 00:00:00 [facility] PPSV23 (PNEUMOVAX) [facility] Varicella 2003-07-08 Completed [facility] (varivax)(chicken 00:00:00 [facility] 2003-07-08 Completed [facility] 00:00:00 [facility] Pneumococcal 2003-07-08 Completed [facility] f Polysaccharide, 00:00:00 [facility] PPSV23 (PNEUMOVAX) [facility] Varicella 2003-07-08 Completed [facility] (varivax)(chicken 00:00:00 [facility] pox[facility] MMR 2003-07-08 Completed [facility] 00:00:00 [facility] Pneumococcal 2003-07-08 Completed [facility] Polysaccharide, 00:00:00 [facility] PPSV23 (PNEUMOVAX) [facility] Varicella 2003-07-08 Completed [facility] (varivax)(chicken 00:00:00 [facility] pox) [facility] MMR 2003-07-08 Completed [facility] 00:00:00 [facility] Pneumococcal 2003-07-08 Completed [facility] f Polysaccharide, 00:00:00 [facility] PPSV23 (PNEUMOVAX) [facility] Varicella 2003-07-08 Completed [facility] (varivax)(chicken 00:00:00 [facility] pox[facility] MMR 2003-07-08 Completed [facility] 00:00:00 [facility] Pneumococcal 2003-07-08 Completed [facility] Polysaccharide, 00:00:00 [facility] PPSV23 (PNEUMOVAX) [facility] Varicella 2003-07-08 Completed [facility] (varivax)(chicken 00:00:00 [facility] pox) [facility] MMR 2003-07-08 Completed [facility] 00:00:00 [facility] Pneumococcal 2003-07-08 Completed [facility] f Polysaccharide, 00:00:00 [facility] PPSV23 (PNEUMOVAX) [facility] Varicella 2003-07-08 Completed [facility] (varivax)(chicken 00:00:00 [facility] 2003-07-08 Completed [facility] 00:00:00 [facility] Pneumococcal 2003-07-08 Completed [facility] o f Polysaccharide, 00:00:00 [facility] PPSV23 (PNEUMOVAX) [facility] Varicella 2003-07-08 Completed [facility] (varivax)(chicken 00:00:00 [facility] 2003-07-08 Completed [facility] 00:00:00 [facility] Pneumococcal 2003-07-08 Completed [facility] Polysaccharide, 00:00:00 [facility] PPSV23 (PNEUMOVAX) [facility] Varicella 2003-07-08 Completed [facility] (varivax)(chicken 00:00:00 [facility] edical pox) [facility] 2003-07-08 Completed [facility] 00:00:00 [facility] Pneumococcal 2003-07-08 Completed University o f Polysaccharide, 00:00:00 [place] [facility] PPSV23 (PNEUMOVAX) [facility] Varicella 2003-07-08 Completed [facility] of (varivax)(chicken 00:00:00 [place] [facility] 2003-07-08 Completed [facility] 00:00:00 [facility] Pneumococcal 2003-07-08 Completed [facility] o f Polysaccharide, 00:00:00 [place] [facility] PPSV23 (PNEUMOVAX) [facility] Varicella 2003-07-08 Completed [facility] (varivax)(chicken 00:00:00 [place] [facility] pox) [facility] MMR 2003-07-08 Completed [facility] 00:00:00 [facility] Pneumococcal 2003-07-08 Completed [facility] o f Polysaccharide, 00:00:00 [place] [facility] PPSV23 (PNEUMOVAX) [facility] Varicella 2003-07-08 Completed [facility] (varivax)(chicken 00:00:00 [place] [facility] pox) [facility] MMR 2003-07-08 Completed [facility] 00:00:00 [facility] Pneumococcal 2003-07-08 Completed [facility] o f Polysaccharide, 00:00:00 [place] [facility] PPSV23 (PNEUMOVAX) [facility] Varicella 2003-07-08 Completed [facility] (varivax)(chicken 00:00:00 [place] [facility] pox) [facility] MMR 2003-07-08 Completed [facility] 00:00:00 [facility] Pneumococcal 2003-07-08 Completed [facility] o f Polysaccharide, 00:00:00 [place] [facility] PPSV23 (PNEUMOVAX) [facility] Varicella 2003-07-08 Completed [facility] (varivax)(chicken 00:00:00 [place] [facility] pox) [facility] MMR 2003-07-08 Completed [facility] 00:00:00 [facility] Pneumococcal 2003-07-08 Completed [facility] o f Polysaccharide, 00:00:00 [place] [facility] PPSV23 (PNEUMOVAX) [facility] Varicella 2003-07-08 Completed [facility] (varivax)(chicken 00:00:00 [place] [facility] pox) [facility] MMR 2003-07-08 Completed [facility] 00:00:00 [facility] Pneumococcal 2003-07-08 Completed [facility] o f Polysaccharide, 00:00:00 [place] [facility] PPSV23 (PNEUMOVAX) [facility] Varicella 2003-07-08 Completed [facility] (varivax)(chicken 00:00:00 [place] [facility] pox) [facility] MMR 2003-07-08 Completed [facility] 00:00:00 [facility] Pneumococcal 2003-07-08 Completed [facility] o f Polysaccharide, 00:00:00 [place] [facility] PPSV23 (PNEUMOVAX) [facility] Varicella 2003-07-08 Completed [facility] (varivax)(chicken 00:00:00 [place] [facility] pox) [facility] MMR 2003-07-08 Completed [facility] 00:00:00 [facility] Pneumococcal 2003-07-08 Completed [facility] Polysaccharide, 00:00:00 [place] [facility] PPSV23 (PNEUMOVAX) [facility] Varicella 2003-07-08 Completed [facility] (varivax)(chicken 00:00:00 [place] [facility] p[facility] 2003-07-08 Completed [facility] 00:00:00 [facility] Pneumococcal 2003-07-08 Completed [facility] o f Polysaccharide, 00:00:00 [place] [facility] PPSV23 (PNEUMOVAX) Branch Varicella 2003-07-08 Completed [facility] (varivax)(chicken 00:00:00 [place] [facility] pox) [facility] MMR 2003-07-08 Completed [facility] 00:00:00 [facility] Pneumococcal 2003-07-08 Completed [facility] o f Polysaccharide, 00:00:00 [place] [facility] PPSV23 (PNEUMOVAX) Branch Varicella 2003-07-08 Completed [facility] (varivax)(chicken 00:00:00 [place] [facility] pox) [facility] 2003-07-08 Completed [facility] 00:00:00 [facility] Pneumococcal 2003-07-08 Completed [facility] o f Polysaccharide, 00:00:00 [place] [facility] PPSV23 (PNEUMOVAX) [facility] Varicella 2003-07-08 Completed [facility] (varivax)(chicken 00:00:00 [place] [facility] p[facility] 2003-07-08 Completed [facility] 00:00:00 [facility] Pneumococcal 2003-07-08 Completed [facility] o f Polysaccharide, 00:00:00 [place] [facility] PPSV23 (PNEUMOVAX) Branch Varicella 2003-07-08 Completed [facility] (varivax)(chicken 00:00:00 [place] [facility] pox[facility] 2003-07-08 Completed [facility] 00:00:00 [facility] Pneumococcal 2003-07-08 Completed [facility] o f Polysaccharide, 00:00:00 [place] [facility] PPSV23 (PNEUMOVAX) Branch Varicella 2003-07-08 Completed [facility] (varivax)(chicken 00:00:00 [place] [facility] pox) [facility] MMR 2003-07-08 Completed [facility] 00:00:00 [facility] Pneumococcal 2003-07-08 Completed [facility] o f Polysaccharide, 00:00:00 [place] [facility] PPSV23 (PNEUMOVAX) Branch Varicella 2003-07-08 Completed [facility] (varivax)(chicken 00:00:00 [place] [facility] pox) [facility] MMR 2003-07-08 Completed [facility] 00:00:00 [facility] Pneumococcal 2003-07-08 Completed [facility] o f Polysaccharide, 00:00:00 [place] [facility] PPSV23 (PNEUMOVAX) Branch Varicella 2003-07-08 Completed [facility] (varivax)(chicken 00:00:00 [place] [facility] pox) [facility] MMR 2003-07-08 Completed [facility] 00:00:00 [facility] Pneumococcal 2003-07-08 Completed [facility] o f Polysaccharide, 00:00:00 [place] [facility] PPSV23 (PNEUMOVAX) [facility] Varicella 2003-07-08 Completed [facility] (varivax)(chicken 00:00:00 [place] [facility] pox) [facility] MMR 2003-07-08 Completed [facility] 00:00:00 [facility] Pneumococcal 2003-07-08 Completed [facility] o f Polysaccharide, 00:00:00 [place] [facility] PPSV23 (PNEUMOVAX) [facility] Varicella 2003-07-08 Completed [facility] (varivax)(chicken 00:00:00 [place] [facility] p[facility] 2003-07-08 Completed [facility] 00:00:00 [facility] Pneumococcal 2003-07-08 Completed [facility] o f Polysaccharide, 00:00:00 [place] [facility] PPSV23 (PNEUMOVAX) [facility] Varicella 2003-07-08 Completed [facility] (varivax)(chicken 00:00:00 [place] [facility] pox) [facility] 2003-07-08 Completed [facility] 00:00:00 [facility] Pneumococcal 2003-07-08 Completed [facility] o f Polysaccharide, 00:00:00 [place] [facility] PPSV23 (PNEUMOVAX) [facility] Varicella 2003-07-08 Completed [facility] (varivax)(chicken 00:00:00 [place] [facility] p[facility] 2003-07-08 Completed [facility] 00:00:00 [facility] Pneumococcal 2003-07-08 Completed [facility] o f Polysaccharide, 00:00:00 [place] [facility] PPSV23 (PNEUMOVAX) [facility] Varicella 2003-07-08 Completed [facility] (varivax)(chicken 00:00:00 [place] [facility] pox) [facility] 2003-07-08 Completed [facility] 00:00:00 [facility] Pneumococcal 2003-07-08 Completed [facility] o f Polysaccharide, 00:00:00 [place] [facility] PPSV23 (PNEUMOVAX) [facility] Varicella 2003-07-08 Completed [facility] (varivax)(chicken 00:00:00 [place] [facility] pox) [facility] MMR 2003-07-08 Completed [facility] 00:00:00 [facility] Pneumococcal 2003-07-08 Completed [facility] o f Polysaccharide, 00:00:00 [place] [facility] PPSV23 (PNEUMOVAX) Branch Varicella 2003-07-08 Completed [facility] (varivax)(chicken 00:00:00 [place] [facility] pox) [facility] MMR 2003-07-08 Completed [facility] 00:00:00 [facility] Pneumococcal 2003-07-08 Completed [facility] o f Polysaccharide, 00:00:00 [place] [facility] PPSV23 (PNEUMOVAX) Branch Varicella 2003-07-08 Completed [facility] (varivax)(chicken 00:00:00 [place] [facility] pox) [facility] MMR 2003-07-08 Completed [facility] 00:00:00 [facility] Pneumococcal 2003-07-08 Completed [facility] o f Polysaccharide, 00:00:00 [place] [facility] PPSV23 (PNEUMOVAX) Branch Varicella 2003-07-08 Completed [facility] (varivax)(chicken 00:00:00 [place] [facility] pox) [facility] MMR 2003-07-08 Completed [facility] 00:00:00 [facility] Pneumococcal 2003-07-08 Completed [facility] o f Polysaccharide, 00:00:00 [place] [facility] PPSV23 (PNEUMOVAX) [facility] Varicella 2003-07-08 Completed [facility] (varivax)(chicken 00:00:00 [place] [facility] pox) [facility] MMR 2003-07-08 Completed [facility] 00:00:00 [facility] Pneumococcal 2003-07-08 Completed [facility] o f Polysaccharide, 00:00:00 [place] [facility] PPSV23 (PNEUMOVAX) Branch Varicella 2003-07-08 Completed [facility] (varivax)(chicken 00:00:00 [place] [facility] pox) [facility] MMR 2003-07-08 Completed [facility] 00:00:00 [facility] Pneumococcal 2003-07-08 Completed [facility] o f Polysaccharide, 00:00:00 [place] [facility] PPSV23 (PNEUMOVAX) Branch Varicella 2003-07-08 Completed [facility] (varivax)(chicken 00:00:00 [place] [facility] pox) [facility] MMR 2003-07-08 Completed [facility] 00:00:00 [facility] Pneumococcal 2003-07-08 Completed [facility] o f Polysaccharide, 00:00:00 [place] [facility] PPSV23 (PNEUMOVAX) Branch Varicella 2003-07-08 Completed [facility] (varivax)(chicken 00:00:00 [place] [facility] pox) [facility] MMR 2003-07-08 Completed [facility] 00:00:00 [facility] Pneumococcal 2003-07-08 Completed [facility] o f Polysaccharide, 00:00:00 [place] [facility] PPSV23 (PNEUMOVAX) Branch Varicella 2003-07-08 Completed [facility] (varivax)(chicken 00:00:00 [place] [facility] pox) [facility] MMR 2003-07-08 Completed [facility] 00:00:00 [facility] Pneumococcal 2003-07-08 Completed [facility] o f Polysaccharide, 00:00:00 [place] [facility] PPSV23 (PNEUMOVAX) Branch Varicella 2003-07-08 Completed [facility] (varivax)(chicken 00:00:00 [place] [facility] pox) [facility] MMR 2003-07-08 Completed [facility] 00:00:00 [facility] Pneumococcal 2003-07-08 Completed [facility] o f Polysaccharide, 00:00:00 [place] [facility] PPSV23 (PNEUMOVAX) Branch Varicella 2003-07-08 Completed [facility] of (varivax)(chicken 00:00:00 [facility] edical pox) Branch DTAP 2003-01-28 Completed University of 00:00:00 [facility] HIB 4 Dose Schedule 2003-01-28 Completed Unive rsity of 00:00:00 [facility] DTAP 2003-01-28 Completed [facility] of 00:00:00 [facility] HIB 4 Dose Schedule 2003-01-28 Completed Unive rsity of 00:00:00 [facility] DTAP 2003-01-28 Completed [facility] of 00:00:00 [facility] HIB 4 Dose Schedule 2003-01-28 Completed Unive rsity of 00:00:00 [facility] DTAP 2003-01-28 Completed [facility] of 00:00:00 [facility] HIB 4 Dose Schedule 2003-01-28 Completed Unive rsity of 00:00:00 [facility] DTAP 2003-01-28 Completed [facility] of 00:00:00 [facility] HIB 4 Dose Schedule 2003-01-28 Completed Unive rsity of 00:00:00 [facility] DTAP 2003-01-28 Completed [facility] of 00:00:00 [facility] HIB 4 Dose Schedule 2003-01-28 Completed Unive rsity of 00:00:00 [facility] DTAP 2003-01-28 Completed [facility] 00:00:00 [facility] HIB 4 Dose Schedule 2003-01-28 Completed Unive rsity of 00:00:00 [facility] DTAP 2003-01-28 Completed [facility] 00:00:00 [facility] HIB 4 Dose Schedule 2003-01-28 Completed Unive rsity of 00:00:00 [facility] DTAP 2003-01-28 Completed [facility] 00:00:00 [facility] HIB 4 Dose Schedule 2003-01-28 Completed Unive rsity of 00:00:00 [facility] DTAP 2003-01-28 Completed [facility] 00:00:00 [facility] HIB 4 Dose Schedule 2003-01-28 Completed Unive rsity of 00:00:00 [facility] DTAP 2003-01-28 Completed [facility] 00:00:00 [facility] HIB 4 Dose Schedule 2003-01-28 Completed Unive rsity of 00:00:00 [facility] DTAP 2003-01-28 Completed [facility] 00:00:00 [facility] HIB 4 Dose Schedule 2003-01-28 Completed Unive rsity of 00:00:00 [facility] DTAP 2003-01-28 Completed [facility] 00:00:00 [facility] HIB 4 Dose Schedule 2003-01-28 Completed Unive rsity of 00:00:00 [facility] DTAP 2003-01-28 Completed [facility] 00:00:00 [facility] HIB 4 Dose Schedule 2003-01-28 Completed Unive rsity of 00:00:00 [facility] DTAP 2003-01-28 Completed [facility] 00:00:00 [facility] HIB 4 Dose Schedule 2003-01-28 Completed Unive rsity of 00:00:00 [facility] DTAP 2003-01-28 Completed [facility] 00:00:00 [facility] HIB 4 Dose Schedule 2003-01-28 Completed Unive rsity of 00:00:00 [facility] DTAP 2003-01-28 Completed [facility] 00:00:00 [facility] HIB 4 Dose Schedule 2003-01-28 Completed Unive rsity of 00:00:00 [facility] DTAP 2003-01-28 Completed [facility] 00:00:00 [facility] HIB 4 Dose Schedule 2003-01-28 Completed Unive rsity of 00:00:00 [facility] DTAP 2003-01-28 Completed [facility] 00:00:00 [facility] HIB 4 Dose Schedule 2003-01-28 Completed Unive rsity of 00:00:00 [facility] DTAP 2003-01-28 Completed [facility] 00:00:00 [facility] HIB 4 Dose Schedule 2003-01-28 Completed Unive rsity of 00:00:00 [facility] DTAP 2003-01-28 Completed [facility] 00:00:00 [facility] HIB 4 Dose Schedule 2003-01-28 Completed Unive rsity of 00:00:00 [facility] DTAP 2003-01-28 Completed [facility] 00:00:00 [facility] HIB 4 Dose Schedule 2003-01-28 Completed Unive rsity of 00:00:00 [facility] DTAP 2003-01-28 Completed [facility] 00:00:00 [facility] HIB 4 Dose Schedule 2003-01-28 Completed Unive rsity of 00:00:00 [facility] DTAP 2003-01-28 Completed [facility] 00:00:00 [facility] HIB 4 Dose Schedule 2003-01-28 Completed Unive rsity of 00:00:00 [facility] DTAP 2003-01-28 Completed [facility] 00:00:00 [facility] HIB 4 Dose Schedule 2003-01-28 Completed Unive rsity of 00:00:00 [facility] DTAP 2003-01-28 Completed [facility] 00:00:00 [facility] HIB 4 Dose Schedule 2003-01-28 Completed Unive rsity of 00:00:00 [facility] DTAP 2003-01-28 Completed [facility] 00:00:00 [facility] HIB 4 Dose Schedule 2003-01-28 Completed Unive rsity of 00:00:00 [facility] DTAP 2003-01-28 Completed [facility] 00:00:00 [facility] HIB 4 Dose Schedule 2003-01-28 Completed Unive rsity of 00:00:00 [facility] DTAP 2003-01-28 Completed [facility] 00:00:00 [facility] HIB 4 Dose Schedule 2003-01-28 Completed Unive rsity of 00:00:00 [facility] DTAP 2003-01-28 Completed [facility] 00:00:00 [facility] HIB 4 Dose Schedule 2003-01-28 Completed Unive rsity of 00:00:00 [facility] DTAP 2003-01-28 Completed [facility] 00:00:00 [facility] HIB 4 Dose Schedule 2003-01-28 Completed Unive rsity of 00:00:00 [facility] DTAP 2003-01-28 Completed [facility] 00:00:00 [facility] HIB 4 Dose Schedule 2003-01-28 Completed Unive rsity of 00:00:00 [facility] DTAP 2003-01-28 Completed [facility] 00:00:00 [facility] HIB 4 Dose Schedule 2003-01-28 Completed Unive rsity of 00:00:00 [facility] DTAP 2003-01-28 Completed [facility] 00:00:00 [facility] HIB 4 Dose Schedule 2003-01-28 Completed Unive rsity of 00:00:00 [facility] DTAP 2003-01-28 Completed [facility] 00:00:00 [facility] HIB 4 Dose Schedule 2003-01-28 Completed Unive rsity of 00:00:00 [facility] DTAP 2003-01-28 Completed [facility] 00:00:00 [facility] HIB 4 Dose Schedule 2003-01-28 Completed Unive rsity of 00:00:00 [facility] DTAP 2003-01-28 Completed [facility] 00:00:00 [facility] HIB 4 Dose Schedule 2003-01-28 Completed Unive rsity of 00:00:00 [facility] DTAP 2003-01-28 Completed [facility] 00:00:00 [facility] HIB 4 Dose Schedule 2003-01-28 Completed Unive rsity of 00:00:00 [facility] DTAP 2003-01-28 Completed [facility] 00:00:00 [facility] HIB 4 Dose Schedule 2003-01-28 Completed Unive rsity of 00:00:00 [facility] DTAP 2003-01-28 Completed [facility] 00:00:00 [facility] HIB 4 Dose Schedule 2003-01-28 Completed Unive rsity of 00:00:00 [facility] DTAP 2003-01-28 Completed [facility] 00:00:00 [facility] HIB 4 Dose Schedule 2003-01-28 Completed Unive rsity of 00:00:00 [facility] DTAP 2003-01-28 Completed [facility] 00:00:00 [facility] HIB 4 Dose Schedule 2003-01-28 Completed Unive rsity of 00:00:00 [facility] DTAP 2003-01-28 Completed [facility] 00:00:00 [facility] HIB 4 Dose Schedule 2003-01-28 Completed Unive rsity of 00:00:00 [facility] DTAP 2003-01-28 Completed [facility] 00:00:00 [facility] HIB 4 Dose Schedule 2003-01-28 Completed Unive rsity of 00:00:00 [facility] DTAP 2003-01-28 Completed [facility] 00:00:00 [facility] HIB 4 Dose Schedule 2003-01-28 Completed Unive rsity of 00:00:00 [facility] DTAP 2003-01-28 Completed [facility] 00:00:00 [facility] HIB 4 Dose Schedule 2003-01-28 Completed Unive rsity of 00:00:00 [facility] DTAP 2003-01-28 Completed [facility] of 00:00:00 [facility] HIB 4 Dose Schedule 2003-01-28 Completed Unive rsity of 00:00:00 [facility] DTAP 2003-01-28 Completed [facility] of 00:00:00 [facility] HIB 4 Dose Schedule 2003-01-28 Completed Unive rsity of 00:00:00 [facility] DTAP 2003-01-28 Completed [facility] of 00:00:00 [facility] HIB 4 Dose Schedule 2003-01-28 Completed Unive rsity of 00:00:00 [facility] DTAP 2003-01-28 Completed [facility] 00:00:00 [facility] HIB 4 Dose Schedule 2003-01-28 Completed Unive rsity of 00:00:00 [facility] DTAP 2002 Completed [facility] 00:00:00 [facility] HIB 4 Dose Schedule 2002 Completed Unive rsity of 00:00:00 [facility] Polio (IPV/OPV) 2002 Completed Universit y of 00:00:00 [facility] DTAP 2002 Completed [facility] 00:00:00 [facility] HIB 4 Dose Schedule 2002 Completed Unive rsity of 00:00:00 [facility] Polio (IPV/OPV) 2002 Completed Universit y [facility] 00:00:00 [facility] DTAP 2002 Completed [facility] 00:00:00 [facility] HIB 4 Dose Schedule 2002 Completed Unive rsity of 00:00:00 [facility] Polio (IPV/OPV) 2002 Completed Universit y of 00:00:00 [facility] DTAP 2002 Completed [facility] 00:00:00 [facility] HIB 4 Dose Schedule 2002 Completed Unive rsity of 00:00:00 [facility] Polio (IPV/OPV) 2002 Completed Universit y [facility] 00:00:00 [facility] DTAP 2002 Completed [facility] 00:00:00 [facility] HIB 4 Dose Schedule 2002 Completed Unive rsity of 00:00:00 [facility] Polio (IPV/OPV) 2002 Completed Universit y of 00:00:00 [facility] DTAP 2002 Completed [facility] 00:00:00 [facility] HIB 4 Dose Schedule 2002 Completed Unive rsity of 00:00:00 [facility] Polio (IPV/OPV) 2002 Completed Univers[facility] y [facility] 00:00:00 [facility] DTAP 2002 Completed [facility] 00:00:00 [facility] HIB 4 Dose Schedule 2002 Completed Unive rsity of 00:00:00 [facility] Polio (IPV/OPV) 2002 Completed Universit y [facility] 00:00:00 [facility] DTAP 2002 Completed [facility] 00:00:00 [facility] HIB 4 Dose Schedule 2002 Completed Unive rsity of 00:00:00 [facility] Polio (IPV/OPV) 2002 Completed Universit y [facility] 00:00:00 [facility] DTAP 2002 Completed [facility] 00:00:00 [facility] HIB 4 Dose Schedule 2002 Completed Unive rsity of 00:00:00 [facility] Polio (IPV/OPV) 2002 Completed Univers[facility] 00:00:00 [facility] DTAP 2002 Completed [facility] 00:00:00 [facility] HIB 4 Dose Schedule 2002 Completed Unive rsity of 00:00:00 [facility] Polio (IPV/OPV) 2002 Completed Universit y [facility] 00:00:00 [facility] DTAP 2002 Completed [facility] 00:00:00 [facility] HIB 4 Dose Schedule 2002 Completed Unive rsity of 00:00:00 [facility] Polio (IPV/OPV) 2002 Completed Univers[facility] 00:00:00 [facility] DTAP 2002 Completed [facility] 00:00:00 [facility] HIB 4 Dose Schedule 2002 Completed Unive rsity of 00:00:00 [facility] Polio (IPV/OPV) 2002 Completed [facility] 00:00:00 [facility] DTAP 2002 Completed [facility] 00:00:00 [facility] HIB 4 Dose Schedule 2002 Completed Unive rsity of 00:00:00 [facility] Polio (IPV/OPV) 2002 Completed [facility] 00:00:00 [facility] DTAP 2002 Completed [facility] 00:00:00 [facility] HIB 4 Dose Schedule 2002 Completed Unive [facility]ity of 00:00:00 [facility] Polio (IPV/OPV) 2002 Completed [facility] 00:00:00 [facility] DTAP 2002 Completed [facility] 00:00:00 [facility] HIB 4 Dose Schedule 2002 Completed [facility]ity of 00:00:00 [facility] Polio (IPV/OPV) 2002 Completed [facility] 00:00:00 [facility] DTAP 2002 Completed [facility] 00:00:00 [facility] HIB 4 Dose Schedule 2002 Completed [facility]ity of 00:00:00 [facility] Polio (IPV/OPV) 2002 Completed [facility] 00:00:00 [facility] DTAP 2002 Completed [facility] 00:00:00 [facility] HIB 4 Dose Schedule 2002 Completed [facility]ity of 00:00:00 [facility] Polio (IPV/OPV) 2002 Completed [facility] 00:00:00 [facility] DTAP 2002 Completed [facility] 00:00:00 [facility] HIB 4 Dose Schedule 2002 Completed [facility]ity of 00:00:00 [facility] Polio (IPV/OPV) 2002 Completed [facility] 00:00:00 [facility] DTAP 2002 Completed [facility] 00:00:00 [facility] HIB 4 Dose Schedule 2002 Completed [facility]ive [facility]ity of 00:00:00 [facility] Polio (IPV/OPV) 2002 Completed [facility] 00:00:00 [facility] DTAP 2002 Completed [facility] 00:00:00 [facility] HIB 4 Dose Schedule 2002 Completed [facility]ity of 00:00:00 [facility] Polio (IPV/OPV) 2002 Completed [facility] 00:00:00 [facility] DTAP 2002 Completed [facility] 00:00:00 [facility] HIB 4 Dose Schedule 2002 Completed [facility]ive [facility]ity of 00:00:00 [facility] Polio (IPV/OPV) 2002 Completed [facility] 00:00:00 [facility] DTAP 2002 Completed [facility] 00:00:00 [facility] HIB 4 Dose Schedule 2002 Completed [facility]ity of 00:00:00 [facility] Polio (IPV/OPV) 2002 Completed [facility] 00:00:00 [facility] DTAP 2002 Completed [facility] 00:00:00 [facility] HIB 4 Dose Schedule 2002 Completed [facility] of 00:00:00 [facility] Polio (IPV/OPV) 2002 Completed [facility] 00:00:00 [facility] DTAP 2002 Completed [facility] 00:00:00 [facility] HIB 4 Dose Schedule 2002 Completed [facility]ity of 00:00:00 [facility] Polio (IPV/OPV) 2002 Completed [facility] 00:00:00 [facility] DTAP 2002 Completed [facility] 00:00:00 [facility] HIB 4 Dose Schedule 2002 Completed [facility] of 00:00:00 [facility] Polio (IPV/OPV) 2002 Completed [facility] 00:00:00 [facility] DTAP 2002 Completed [facility] 00:00:00 [facility] HIB 4 Dose Schedule 2002 Completed [facility] 00:00:00 [facility] Polio (IPV/OPV) 2002 Completed [facility] 00:00:00 [facility] DTAP 2002 Completed [facility] 00:00:00 [facility] HIB 4 Dose Schedule 2002 Completed [facility] 00:00:00 [facility] Polio (IPV/OPV) 2002 Completed [facility] 00:00:00 [facility] DTAP 2002 Completed [facility] 00:00:00 [facility] HIB 4 Dose Schedule 2002 Completed [facility] 00:00:00 [facility] Polio (IPV/OPV) 2002 Completed [facility] 00:00:00 [facility] DTAP 2002 Completed [facility] 00:00:00 [facility] HIB 4 Dose Schedule 2002 Completed [facility] 00:00:00 [facility] Polio (IPV/OPV) 2002 Completed [facility] 00:00:00 [facility] DTAP 2002 Completed [facility] 00:00:00 [facility] HIB 4 Dose Schedule 2002 Completed [facility] 00:00:00 [facility] Polio (IPV/OPV) 2002 Completed [facility] 00:00:00 [facility] DTAP 2002 Completed [facility] 00:00:00 [facility] HIB 4 Dose Schedule 2002 Completed [facility] 00:00:00 [facility] Polio (IPV/OPV) 2002 Completed [facility] 00:00:00 [facility] DTAP 2002 Completed [facility] 00:00:00 [facility] HIB 4 Dose Schedule 2002 Completed [facility] 00:00:00 [facility] Polio (IPV/OPV) 2002 Completed [facility] 00:00:00 [facility] DTAP 2002 Completed [facility] 00:00:00 [facility] HIB 4 Dose Schedule 2002 Completed [facility] 00:00:00 [facility] Polio (IPV/OPV) 2002 Completed [facility] 00:00:00 [facility] DTAP 2002 Completed [facility] 00:00:00 [facility] HIB 4 Dose Schedule 2002 Completed [facility] 00:00:00 [facility] Polio (IPV/OPV) 2002 Completed [facility] 00:00:00 [facility] DTAP 2002 Completed [facility] 00:00:00 [facility] HIB 4 Dose Schedule 2002 Completed [facility] 00:00:00 [facility] Polio (IPV/OPV) 2002 Completed [facility] 00:00:00 [facility] DTAP 2002 Completed [facility] 00:00:00 [facility] HIB 4 Dose Schedule 2002 Completed [facility] 00:00:00 [facility] Polio (IPV/OPV) 2002 Completed [facility] 00:00:00 [facility] DTAP 2002 Completed [facility] 00:00:00 [facility] HIB 4 Dose Schedule 2002 Completed [facility] 00:00:00 [facility] Polio (IPV/OPV) 2002 Completed [facility] 00:00:00 [facility] DTAP 2002 Completed [facility] 00:00:00 [facility] HIB 4 Dose Schedule 2002 Completed [facility] 00:00:00 [facility] Polio (IPV/OPV) 2002 Completed [facility] 00:00:00 [facility] DTAP 2002 Completed [facility] 00:00:00 [facility] HIB 4 Dose Schedule 2002 Completed [facility] 00:00:00 [facility] Polio (IPV/OPV) 2002 Completed [facility] 00:00:00 [facility] DTAP 2002 Completed [facility] 00:00:00 [facility] HIB 4 Dose Schedule 2002 Completed [facility] 00:00:00 [facility] Polio (IPV/OPV) 2002 Completed [facility] 00:00:00 [facility] DTAP 2002 Completed [facility] 00:00:00 [facility] HIB 4 Dose Schedule 2002 Completed [facility] 00:00:00 [facility] Polio (IPV/OPV) 2002 Completed [facility] 00:00:00 [facility] DTAP 2002 Completed [facility] 00:00:00 [facility] HIB 4 Dose Schedule 2002 Completed [facility] 00:00:00 [facility] Polio (IPV/OPV) 2002 Completed [facility] 00:00:00 [facility] DTAP 2002 Completed [facility] 00:00:00 [facility] HIB 4 Dose Schedule 2002 Completed [facility] 00:00:00 [facility] Polio (IPV/OPV) 2002 Completed [facility] 00:00:00 [facility] DTAP 2002 Completed [facility] 00:00:00 [facility] HIB 4 Dose Schedule 2002 Completed [facility] 00:00:00 [facility] Polio (IPV/OPV) 2002 Completed [facility] 00:00:00 [facility] DTAP 2002 Completed [facility] 00:00:00 [facility] HIB 4 Dose Schedule 2002 Completed [facility] 00:00:00 [facility] Polio (IPV/OPV) 2002 Completed [facility] 00:00:00 [facility] DTAP 2002 Completed [facility] 00:00:00 [facility] HIB 4 Dose Schedule 2002 Completed [facility] 00:00:00 [facility] Polio (IPV/OPV) 2002 Completed [facility] 00:00:00 [facility] DTAP 2002 Completed [facility] 00:00:00 [facility] HIB 4 Dose Schedule 2002 Completed [facility] 00:00:00 [facility] Polio (IPV/OPV) 2002 Completed [facility] 00:00:00 [facility] DTAP 2002 Completed [facility] 00:00:00 [facility] HIB 4 Dose Schedule 2002 Completed [facility] 00:00:00 [facility] Polio (IPV/OPV) 2002 Completed [facility] 00:00:00 [facility] DTAP 2002 Completed [facility] 00:00:00 [facility] HIB 4 Dose Schedule 2002 Completed [facility] 00:00:00 [facility] Polio (IPV/OPV) 2002 Completed [facility] 00:00:00 [facility] DTAP 2002 Completed [facility] 00:00:00 [facility] HIB 4 Dose Schedule 2002 Completed [facility] 00:00:00 [facility] Polio (IPV/OPV) 2002 Completed [facility] 00:00:00 [facility] HIB 4 Dose Schedule 2002 Completed [facility] 00:00:00 [facility] HIB 4 Dose Schedule 2002 Completed [facility] 00:00:00 [facility] HIB 4 Dose Schedule 2002 Completed [facility] 00:00:00 [facility] HIB 4 Dose Schedule 2002 Completed [facility] 00:00:00 [facility] HIB 4 Dose Schedule 2002 Completed [facility] 00:00:00 [facility] HIB 4 Dose Schedule 2002 Completed [facility] 00:00:00 [facility] HIB 4 Dose Schedule 2002 Completed [facility] 00:00:00 [facility] HIB 4 Dose Schedule 2002 Completed [facility] 00:00:00 [facility] HIB 4 Dose Schedule 2002 Completed [facility] 00:00:00 [facility] HIB 4 Dose Schedule 2002 Completed [facility] 00:00:00 [facility] HIB 4 Dose Schedule 2002 Completed [facility] 00:00:00 [facility] HIB 4 Dose Schedule 2002 Completed [facility] 00:00:00 [facility] HIB 4 Dose Schedule 2002 Completed [facility] 00:00:00 [facility] HIB 4 Dose Schedule 2002 Completed [facility] 00:00:00 [facility] HIB 4 Dose Schedule 2002 Completed [facility] 00:00:00 [facility] HIB 4 Dose Schedule 2002 Completed [facility] 00:00:00 [facility] HIB 4 Dose Schedule 2002 Completed [facility] 00:00:00 [facility] HIB 4 Dose Schedule 2002 Completed [facility] 00:00:00 [facility] HIB 4 Dose Schedule 2002 Completed [facility] 00:00:00 [facility] HIB 4 Dose Schedule 2002 Completed [facility] 00:00:00 [facility] HIB 4 Dose Schedule 2002 Completed [facility] 00:00:00 [facility] HIB 4 Dose Schedule 2002 Completed [facility] 00:00:00 [facility] HIB 4 Dose Schedule 2002 Completed [facility] 00:00:00 [facility] HIB 4 Dose Schedule 2002 Completed [facility] 00:00:00 [facility] HIB 4 Dose Schedule 2002 Completed [facility] 00:00:00 [facility] HIB 4 Dose Schedule 2002 Completed [facility] 00:00:00 [facility] HIB 4 Dose Schedule 2002 Completed [facility] 00:00:00 [facility] HIB 4 Dose Schedule 2002 Completed [facility] 00:00:00 [facility] HIB 4 Dose Schedule 2002 Completed [facility] 00:00:00 [facility] HIB 4 Dose Schedule 2002 Completed [facility] 00:00:00 [facility] HIB 4 Dose Schedule 2002 Completed [facility] 00:00:00 [facility] HIB 4 Dose Schedule 2002 Completed [facility] 00:00:00 [facility] HIB 4 Dose Schedule 2002 Completed [facility] 00:00:00 [facility] HIB 4 Dose Schedule 2002 Completed [facility] 00:00:00 [facility] HIB 4 Dose Schedule 2002 Completed [facility] 00:00:00 [facility] HIB 4 Dose Schedule 2002 Completed [facility] 00:00:00 [facility] HIB 4 Dose Schedule 2002 Completed [facility] 00:00:00 [facility] HIB 4 Dose Schedule 2002 Completed [facility] 00:00:00 [facility] HIB 4 Dose Schedule 2002 Completed [facility] 00:00:00 [facility] HIB 4 Dose Schedule 2002 Completed [facility] 00:00:00 [facility] HIB 4 Dose Schedule 2002 Completed [facility] 00:00:00 [facility] HIB 4 Dose Schedule 2002 Completed [facility] 00:00:00 [facility] HIB 4 Dose Schedule 2002 Completed [facility] 00:00:00 [facility] HIB 4 Dose Schedule 2002 Completed [facility] 00:00:00 [facility] HIB 4 Dose Schedule 2002 Completed [facility] 00:00:00 [facility] HIB 4 Dose Schedule 2002 Completed [facility] 00:00:00 [facility] HIB 4 Dose Schedule 2002 Completed [facility] 00:00:00 [facility] HIB 4 Dose Schedule 2002 Completed [facility] 00:00:00 [facility] HIB 4 Dose Schedule 2002 Completed [facility] 00:00:00 [facility] HIB 4 Dose Schedule 2002 Completed [facility] 00[facility]00:00 [facility] DTAP 2002 Completed [facility] 00:00:00 [facility] Polio (IPV/OPV) 2002 Completed [facility] 00:00:00 [facility] DTAP 2002 Completed [facility] 00:00:00 [facility] Polio (IPV/OPV) 2002 Completed [facility] 00:00:00 [facility] DTAP 2002 Completed [facility] 00:00:00 [facility] Polio (IPV/OPV) 2002 Completed [facility] 00:00:00 [facility] DTAP 2002 Completed [facility] 00:00:00 [facility] Polio (IPV/OPV) 2002 Completed [facility] 00:00:00 [facility] DTAP 2002 Completed [facility] 00:00:00 [facility] Polio (IPV/OPV) 2002 Completed [facility] 00:00:00 [facility] DTAP 2002 Completed [facility] 00:00:00 [facility] Polio (IPV/OPV) 2002 Completed [facility] 00:00:00 [facility] DTAP 2002 Completed [facility] 00:00:00 [facility] Polio (IPV/OPV) 2002 Completed [facility] 00:00:00 [facility] DTAP 2002 Completed [facility] 00:00:00 [facility] Polio (IPV/OPV) 2002 Completed [facility] 00:00:00 [facility] DTAP 2002 Completed [facility] 00:00:00 [facility] Polio (IPV/OPV) 2002 Completed [facility] 00:00:00 [facility] DTAP 2002 Completed [facility] 00:00:00 [facility] Polio (IPV/OPV) 2002 Completed [facility] 00:00:00 [facility] DTAP 2002 Completed [facility] 00:00:00 [facility] Polio (IPV/OPV) 2002 Completed [facility] 00:00:00 [facility] DTAP 2002 Completed [facility] 00:00:00 [facility] Polio (IPV/OPV) 2002 [facility] Polio (IPV/OPV) 2002 Completed [facility] 00:00:00 [facility] DTAP 2002 Completed [facility] 00:00:00 [facility] Polio (IPV/OPV) 2002 Completed [facility] 00:00:00 [facility] DTAP 2002 Completed [facility] 00:00:00 [facility] Polio (IPV/OPV) 2002 Completed [facility] 00:00:00 [facility] DTAP 2002 Completed [facility] 00:00:00 [facility] Polio (IPV/OPV) 2002 Completed [facility] 00:00:00 [facility] DTAP 2002 Completed [facility] 00:00:00 [facility] Polio (IPV/OPV) 2002 Completed [facility] 00:00:00 [facility] DTAP 2002 Completed [facility] 00:00:00 [facility] Polio (IPV/OPV) 2002 Completed [facility] 00:00:00 [facility] DTAP 2002 Completed [facility] 00:00:00 [facility] Polio (IPV/OPV) 2002 Completed [facility] 00:00:00 [facility] DTAP 2002 Completed [facility] 00:00:00 [facility] Polio (IPV/OPV) 2002 Completed [facility] 00:00:00 [facility] DTAP 2002 Completed [facility] 00:00:00 [facility] Polio (IPV/OPV) 2002 Completed [facility] 00:00:00 [facility] DTAP 2002 Completed [facility] 00:00:00 [facility] Polio (IPV/OPV) 2002 Completed [facility] 00:00:00 [facility] DTAP 2002 Completed [facility] 00:00:00 [facility] Polio (IPV/OPV) 2002 Completed [facility] 00:00:00 [facility] DTAP 2002 Completed [facility] 00:00:00 [facility] Polio (IPV/OPV) 2002 Completed [facility] 00:00:00 [facility] DTAP 2002 Completed [facility] 00:00:00 [facility] Polio (IPV/OPV) 2002 Completed [facility] 00:00:00 [facility] DTAP 2002 Completed [facility] 00:00:00 [facility] Polio (IPV/OPV) 2002 Completed [facility] 00:00:00 [facility] DTAP 2002 Completed [facility] 00:00:00 [facility] Polio (IPV/OPV) 2002 Completed [facility] 00:00:00 [facility] DTAP 2002 Completed [facility] 00:00:00 [facility] Polio (IPV/OPV) 2002 Completed [facility] 00:00:00 [facility] DTAP 2002 Completed [facility] 00:00:00 [facility] Polio (IPV/OPV) 2002 Completed [facility] 00:00:00 [facility] DTAP 2002 Completed [facility] 00:00:00 [facility] Polio (IPV/OPV) 2002 Completed [facility] 00:00:00 [facility] DTAP 2002 Completed [facility] 00:00:00 [facility] Polio (IPV/OPV) 2002 Completed [facility] 00:00:00 [facility] DTAP 2002 Completed [facility] 00:00:00 [facility] Polio (IPV/OPV) 2002 Completed [facility] 00:00:00 [facility] DTAP 2002 Completed [facility] 00:00:00 [facility] Polio (IPV/OPV) 2002 Completed [facility] 00:00:00 [facility] DTAP 2002 Completed [facility] 00:00:00 [facility] Polio (IPV/OPV) 2002 Completed [facility] 00:00:00 [facility] DTAP 2002 Completed [facility] 00:00:00 [facility] Polio (IPV/OPV) 2002 Completed [facility] 00:00:00 [facility] DTAP 2002 Completed [facility] 00:00:00 [facility] Polio (IPV/OPV) 2002 Completed [facility] 00:00:00 [facility] DTAP 2002 Completed [facility] 00:00:00 [facility] Polio (IPV/OPV) 2002 Completed [facility] 00:00:00 [facility] DTAP 2002 Completed [facility] 00:00:00 [facility] Polio (IPV/OPV) 2002 Completed [facility] 00:00:00 [facility] DTAP 2002 Completed [facility] 00:00:00 [facility] Polio (IPV/OPV) 2002 Completed [facility] 00:00:00 [facility] DTAP 2002 Completed [facility] 00[facility]00:00 [facility] Polio (IPV/OPV) 2002 [facility]00 [facility] Polio (IPV/OPV) 2002 Completed [facility] 00[facility]:00 [facility] Polio (IPV/OPV) 2002 Completed [facility] 00[facility]:00 [facility] Polio (IPV/OPV) 2002 Completed [facility] 00[facility]:00 [facility] Polio (IPV/OPV) 2002 Completed [facility] 00[facility]:00 [facility] Polio (IPV/OPV) 2002 Completed [facility] 00[facility]:00 [facility] Polio (IPV/OPV) 2002 Completed [facility] 00:[facility]:00 [facility] Polio (IPV/OPV) 2002 Completed [facility] 00[facility]:00 [facility] Polio (IPV/OPV) 2002 Completed [facility] 00[facility]:00 [facility] Polio (IPV/OPV) 2002 Com[facility]00 [facility] Polio (IPV/OPV) 2002 Completed [facility] 00:00:00 [facility] Hep B, Adol or Pedi 2002 Completed [facility] Dosage 00:00:00 [facility] Hep B, Adol or Pedi 2002 Completed [facility] Dosage 00:00:00 [facility] Hep B, Adol or Pedi 2002 Completed [facility] Dosage 00:00:00 [facility] Hep B, Adol or Pedi 2002 Completed [facility] Dosage 00:00:00 [facility] Hep B, Adol or Pedi 2002 Completed [facility] Dosage 00:00:00 [facility] Hep B, Adol or Pedi 2002 Completed [facility] Dosage 00:00:00 [facility] Hep B, Adol or Pedi 2002 Completed [facility] Dosage 00:00:00 [facility] Hep B, Adol or Pedi 2002 Completed [facility] Dosage 00:00:00 [facility] Hep B, Adol or Pedi 2002 Completed [facility] Dosage 00:00:00 [facility] Hep B, Adol or Pedi 2002 Completed [facility] Dosage 00:00:00 [facility] Hep B, Adol or Pedi 2002 Completed [facility] Dosage 00:00:00 [facility] Hep B, Adol or Pedi 2002 Completed [facility] Dosage 00:00:00 [facility] Hep B, Adol or Pedi 2002 Completed [facility] Dosage 00:00:00 [facility] Hep B, Adol or Pedi 2002 Completed [facility] Dosage 00:00:00 [facility] Hep B, Adol or Pedi 2002 Completed [facility] Dosage 00:00:00 [facility] Hep B, Adol or Pedi 2002 Completed [facility] Dosage 00:00:00 [facility] Hep B, Adol or Pedi 2002 Completed [facility] Dosage 00:00:00 [facility] Hep B, Adol or Pedi 2002 Completed [facility] Dosage 00:00:00 [facility] Hep B, Adol or Pedi 2002 Completed [facility] Dosage 00:00:00 [facility] Hep B, Adol or Pedi 2002 Completed [facility] Dosage 00:00:00 [facility] Hep B, Adol or Pedi 2002 Completed [facility] Dosage 00:00:00 [facility] Hep B, Adol or Pedi 2002 Completed [facility] Dosage 00:00:00 [facility] Hep B, Adol or Pedi 2002 Completed [facility] Dosage 00:00:00 [facility] Hep B, Adol or Pedi 2002 Completed [facility] Dosage 00:00:00 [facility] Hep B, Adol or Pedi 2002 Completed [facility] Dosage 00:00:00 [facility] Hep B, Adol or Pedi 2002 Completed [facility] Dosage 00:00:00 [facility] Hep B, Adol or Pedi 2002 Completed [facility] Dosage 00:00:00 [facility] Hep B, Adol or Pedi 2002 Completed [facility] Dosage 00:00:00 [facility] Hep B, Adol or Pedi 2002 Completed [facility] Dosage 00:00:00 [facility] Hep B, Adol or Pedi 2002 Completed [facility] Dosage 00:00:00 [facility] Hep B, Adol or Pedi 2002 Completed [facility] Dosage 00:00:00 [facility] Hep B, Adol or Pedi 2002 Completed [facility] Dosage 00:00:00 [facility] Hep B, Adol or Pedi 2002 Completed [facility] Dosage 00:00:00 [facility] Hep B, Adol or Pedi 2002 Completed [facility] Dosage 00:00:00 [facility] Hep B, Adol or Pedi 2002 Completed [facility] Dosage 00:00:00 [facility] Hep B, Adol or Pedi 2002 Completed [facility] Dosage 00:00:00 [facility] Hep B, Adol or Pedi 2002 Completed [facility] Dosage 00:00:00 [facility] Hep B, Adol or Pedi 2002 Completed [facility] Dosage 00:00:00 [facility] Hep B, Adol or Pedi 2002 Completed [facility] Dosage 00:00:00 [facility] Hep B, Adol or Pedi 2002 Completed [facility] Dosage 00:00:00 [facility] Hep B, Adol or Pedi 2002 Completed [facility] Dosage 00:00:00 [facility] Hep B, Adol or Pedi 2002 Completed [facility] Dosage 00:00:00 [facility] Hep B, Adol or Pedi 2002 Completed [facility] Dosage 00:00:00 [facility] Hep B, Adol or Pedi 2002 Completed [facility] Dosage 00:00:00 [facility] Hep B, Adol or Pedi 2002 Completed [facility] Dosage 00:00:00 [facility] Hep B, Adol or Pedi 2002 Completed [facility] Dosage 00:00:00 [facility] Hep B, Adol or Pedi 2002 Completed [facility] Dosage 00:00:00 [facility] Hep B, Adol or Pedi 2002 Completed [facility] Dosage 00:00:00 [facility] Hep B, Adol or Pedi 2002 Completed [facility] Dosage 00:00:00 [facility] Hep B, Adol or Pedi 2002 Completed [facility] Dosage 00:00:00 [facility] Hep B, Adol or Pedi 2002 Completed [facility] Dosage 00:00:00 [facility] Hep B, Adol or Pedi 2002 Completed [facility] Dosage 00:00:00 [facility] Hep B, Adol or Pedi 2002 Completed [facility] Dosage 00:00:00 [facility] Hep B, Adol or Pedi 2002 Completed [facility] Dosage 00:00:00 [facility] Hep B, Adol or Pedi 2002 Completed [facility] Dosage 00:00:00 [facility] Hep B, Adol or Pedi 2002 Completed [facility] Dosage 00:00:00 [facility] Hep B, Adol or Pedi 2002 Completed [facility] Dosage 00:00:00 [facility] Hep B, Adol or Pedi 2002 Completed [facility] Dosage 00:00:00 [facility] Hep B, Adol or Pedi 2002 Completed [facility] Dosage 00:00:00 [facility] Hep B, Adol or Pedi 2002 Completed [facility] Dosage 00:00:00 [facility] Hep B, Adol or Pedi 2002 Completed [facility] Dosage 00:00:00 [facility] Hep B, Adol or Pedi 2002 Completed [facility] Dosage 00:00:00 [facility] Hep B, Adol or Pedi 2002 Completed [facility] Dosage 00:00:00 [facility] Hep B, Adol or Pedi 2002 Completed [facility] Dosage 00:00:00 [facility] Hep B, Adol or Pedi 2002 Completed Unive rsity of Dosage 00:00:00 [facility] Hep B, Adol or Pedi 2002 Completed Unive rsity of Dosage 00:00:00 [facility] Hep B, Adol or Pedi 2002 Completed Unive rsity of Dosage 00:00:00 [facility] Hep B, Adol or Pedi 2002 Completed Unive rsity of Dosage 00:00:00 [facility] Hep B, Adol or Pedi 2002 Completed Unive rsity of Dosage 00:00:00 [facility] Hep B, Adol or Pedi 2002 Completed Unive rsity of Dosage 00:00:00 [facility] Hep B, Adol or Pedi 2002 Completed Unive rsity of Dosage 00:00:00 [facility] Hep B, Adol or Pedi 2002 Completed Unive rsity of Dosage 00:00:00 [facility] Hep B, Adol or Pedi 2002 Completed Unive rsity of Dosage 00:00:00 [facility] Hep B, Adol or Pedi 2002 Completed Unive rsity of Dosage 00:00:00 [facility] Hep B, Adol or Pedi 2002 Completed Unive rsity of Dosage 00:00:00 [facility] Hep B, Adol or Pedi 2002 Completed Unive rsity of Dosage 00:00:00 [facility] Hep B, Adol or Pedi 2002 Completed Unive rsity of Dosage 00:00:00 [facility] Hep B, Adol or Pedi 2002 Completed Unive rsity of Dosage 00:00:00 [facility] Hep B, Adol or Pedi 2002 Completed Unive rsity of Dosage 00:00:00 [facility] Hep B, Adol or Pedi 2002 Completed Unive rsity of Dosage 00:00:00 [facility] Hep B, Adol or Pedi 2002 Completed Unive rsity of Dosage 00:00:00 [facility] Hep B, Adol or Pedi 2002 Completed Unive rsity of Dosage 00:00:00 [facility] Hep B, Adol or Pedi 2002 Completed Unive rsity of Dosage 00:00:00 [facility] Hep B, Adol or Pedi 2002 Completed Unive rsity of Dosage 00:00:00 [facility] Hep B, Adol or Pedi 2002 Completed Unive rsity of Dosage 00:00:00 [facility] Hep B, Adol or Pedi 2002 Completed Unive rsity of Dosage 00:00:00 [facility] Hep B, Adol or Pedi 2002 Completed Unive rsity of Dosage 00:00:00 [facility] Hep B, Adol or Pedi 2002 Completed Unive rsity of Dosage 00:00:00 [facility] Hep B, Adol or Pedi 2002 Completed Unive rsity of Dosage 00:00:00 [facility] Hep B, Adol or Pedi 2002 Completed Unive rsity of Dosage 00:00:00 [facility] Hep B, Adol or Pedi 2002 Completed Unive rsity of Dosage 00:00:00 [facility] Hep B, Adol or Pedi 2002 Completed Unive rsity of Dosage 00:00:00 [facility] Hep B, Adol or Pedi 2002 Completed Unive rsity of Dosage 00:00:00 [facility] Hep B, Adol or Pedi 2002 Completed Unive rsity of Dosage 00:00:00 [facility] Hep B, Adol or Pedi 2002 Completed Unive rsity of Dosage 00:00:00 [facility] Hep B, Adol or Pedi 2002 Completed Unive rsity of Dosage 00:00:00 [facility] Hep B, Adol or Pedi 2002 Completed Unive rsity of Dosage 00:00:00 [facility] Hep B, Adol or Pedi 2002 Completed Unive rsity of Dosage 00:00:00 [facility] Hep B, Adol or Pedi 2002 Completed Unive rsity of Dosage 00:00:00 [facility] Hep B, Adol or Pedi 2002 Completed Unive rsity of Dosage 00:00:00 [facility] Meningococcal Unknown Completed [facility] larisa (groups A, C, Y and Branc h W-135) conjugate vaccine (MCV4P) TDAP Unknown Completed [facility] DTAP Unknown Completed [facility] HEPATITIS A Unknown Completed [facility] HEPATITIS A Unknown Completed [facility] Hep B, Adol or Pedi Unknown Completed Unive rsity of Dosage [facility] Hep B, Adol or Pedi Unknown Completed Unive rsity of Dosage [facility] MMR Unknown Completed [facility] Pneumococcal Unknown Completed [place] [facility] PPSV23 (PNEUMOVAX) Branch Polio (IPV/OPV) Unknown Completed [facility] Varicella Unknown Completed University (varivax)(chicken [place] [facility] pox) [facility] DTAP Unknown Completed [facility] DTAP Unknown Completed [facility] DTAP Unknown Completed [facility] DTAP Unknown Completed [facility] HIB 4 Dose Schedule Unknown [facility] D[facility] Schedule Unknown [facility] HIB 4 Dose Schedule Unknown [facility] H[facility] 4 Dose Schedule Unknown [facility] MMR Unknown Completed [facility] Pneumococcal Unknown Completed [place] [facility] [place] Polysaccharide, [place] [facility] PPSV23 (PNEUMOVAX) [facility] Pneumococcal Unknown Completed [place] [facility] [place] Polysaccharide, [place] [facility] PPSV23 (PNEUMOVAX) Branch Polio (IPV/OPV) Unknown Completed Universit y [facility] Polio (IPV/OPV) [facility] Polio (IPV/OPV) Unknown Completed Universit y [facility] Polio (IPV/OPV) Unknown Completed [facility] Varicella Unknown Completed University (varivax)(chicken [place] [facility] pox) [facility] Hep B, Adol or Pedi Unknown Completed Unive rsity of [facility] Influenza Virus Unknown Completed Universit y of Vaccine (3+ yrs) [facility] dical [place] Influenza Virus Unknown Completed Universit y of Vaccine Quad IM 3+ [facility] Branch Influenza Virus Unknown Completed Universit y of Vaccine Quad IM 3+ [facility] Influenza Virus Unknown Completed Universit y of Vaccine Quad IM 3+ [facility] Meningococcal Unknown Completed [facility] (groups A, C, Y and Branc h W-135) conjugate vaccine (MCV4P) TDAP Unknown Completed [facility] DTAP Unknown Completed [facility] HEPATITIS A Unknown Completed [facility] HEPATITIS A Unknown Completed [facility] Hep B, Adol or Pedi Unknown Completed Unive rsity of [facility] Hep B, Adol or Pedi Unknown Completed Unive rsity of [facility] MMR Unknown Completed [facility] Pneumococcal Unknown Completed [place] Polysaccharide, [place] [facility] PPSV23 (PNEUMOVAX) Branch Polio (IPV/OPV) Unknown Completed [facility] Varicella Unknown Completed University of (varivax)(chicken [place] [facility] pox) [facility] DTAP Unknown Completed [facility] DTAP Unknown Completed [facility] DTAP Unknown Completed [facility] DTAP Unknown Completed [facility] HIB 4 Dose Schedule Unknown Completed Unive rsity [facility] HIB 4 Dose Schedule Unknown Completed Unive rsity of [facility] HIB 4 Dose Schedule Unknown Completed Unive [facility] HIB 4 Dose Schedule Unknown Completed Unive [facility] MMR Unknown Completed [facility] Pneumococcal Unknown Completed [place] [facility] [place] Polysaccharide, [facility] ica PPSV23 (PNEUMOVAX) Branch Pneumococcal Unknown Com[facility] [place] [facility] PPSV23 (PNEUMOVAX) Branch Polio (IPV/OPV) Unknown [facility] Polio (IPV/OPV) Unknown [facility] Polio (IPV/OPV) Unknown Completed [facility] Polio (IPV/OPV) Unknown Completed [facility] Varicella Unknown Completed [facility] (varivax)(chicken [place] [facility] pox) [facility] Hep B, Adol or Pedi Unknown Completed Unive rsity of [facility] Influenza Virus Unknown Completed Universit y of Vaccine (3+ yrs) [facility] dical [place] Influenza Virus Unknown Completed Universit y of Vaccine Quad IM 3+ [facility] Influenza Virus Unknown Completed Universit y of Vaccine Quad IM 3+ [facility] Branch Influenza Virus Unknown Completed Universit y of Vaccine Quad IM 3+ [facility] Vital Signs Vital Name Observation Time Observation Value Comments Source Systolic blood 2023-02-07 20:54:00 115 mm[facility]Hg] [facility] Diastolic blood 2023-02-07 20:54:00 68 mm[Hg] Unive [facility] Heart rate 2023-02-07 20:54:00 99 /min [facility] Respiratory rate 2023-02-07 20:54:00 15 /min Univ [facility] Body weight 2023-02-07 20:54:00 52.844 kg [facility] Systolic blood 2023-02-01 21:53:00 109 mm[Hg] Univer [facility] [place] Diastolic blood 2023-02-01 21:53:00 76 mm[Hg] Unive [facility] Heart rate 2023-02-01 21:53:00 107 /min [facility] Body temperature 2023-02-01 21:53:00 37.17 [place] [facility] ersity of [facility] Respiratory rate 2023-02-01 21:53:00 16 /min Univ ersity of [facility] Body weight 2023-02-01 21:53:00 50.667 kg Universi ty of [facility] Oxygen saturation in 2023-02-01 21:53:00 97 /min University of Arterial blood by [facility] Pulse oximetry Branch Systolic blood 2022-12-27 17:47:00 113 mm[Hg] Univer sity of pressure [facility] Diastolic blood 2022-12-27 17:47:00 79 mm[Hg] Unive rsity of pressure [facility] Heart rate 2022-12-27 17:47:00 80 /min Universi ty [facility] Body temperature 2022-12-27 17:47:00 36.61 Rosamaria Univ ersity of [facility] Respiratory rate 2022-12-27 17:47:00 18 /min Univ ersity of [facility] Body height 2022-12-27 17:47:00 149.9 cm Universi ty of [facility] Body weight 2022-12-27 17:47:00 53.025 kg Universi ty [facility] BMI 2022-12-27 17:47:00 23.61 kg/m2 Universi ty of [facility] Oxygen saturation in 2022-12-27 17:47:00 100 /min University of Arterial blood by [facility] Pulse oximetry Branch Systolic blood 2022-11-30 18:33:00 114 mm[Hg] Univer sity of pressure [facility] Diastolic blood 2022-11-30 18:33:00 76 mm[Hg] Unive rsity of pressure [facility] Heart rate 2022-11-30 18:33:00 97 /min Universi ty of [facility] Body temperature 2022-11-30 18:33:00 36.67 Rosamaria Univ ersity of [facility] Respiratory rate 2022-11-30 18:33:00 18 /min Univ ersity [facility] Body height 2022-11-30 18:33:00 149.9 cm Universi ty [facility] Body weight 2022-11-30 18:33:00 51.71 kg Universi ty [facility] BMI 2022-11-30 18:33:00 23.03 kg/m2 Universi ty of [facility] Oxygen saturation in 2022-11-30 18:33:00 98 /min University of Arterial blood by [facility] larisa Pulse oximetry Branch Systolic blood 2022-11-01 13:09:00 107 mm[Hg] Univer sity of pressure [facility] Diastolic blood 2022-11-01 13:09:00 75 mm[Hg] Unive rsity of pressure [facility] Heart rate 2022-11-01 13:09:00 106 /min Universi ty [facility] Respiratory rate 2022-11-01 13:09:00 15 /min Univ ersity of [facility] Body weight 2022-11-01 13:09:00 53.298 kg [facility]i ty [facility] Systolic blood 2022-07-21 00:04:00 100 mm[Hg] Univer sity of pressure [facility] Diastolic blood 2022-07-21 00:04:00 67 mm[Hg] Unive rsity of pressure [facility] Heart rate 2022-07-21 00:04:00 71 /min Universi ty [facility] Body temperature 2022-07-21 00:04:00 37.22 Ros[facility]aria Univ ersity of [facility] Respiratory rate 2022-07-21 00:04:00 15 /min Univ ersity [facility] Body height 2022-07-21 00:04:00 149.9 cm Universi ty [facility] Body weight 2022-07-21 00:04:00 52.889 kg Universi ty [facility] BMI 2022-07-21 00:04:00 23.55 kg/m2 Univers[facility] ty [facility] Oxygen saturation in 2022-07-21 00:04:00 98 /min University of Arterial blood by [facility] Pulse oximetry Branch Systolic blood 2022-07-13 20:05:00 111 mm[Hg] Univer sity of pressure [facility] Diastolic blood 2022-07-13 20:05:00 74 mm[Hg] Unive rsity of pressure [facility] Heart rate 2022-07-13 20:05:00 68 /min Universi ty [facility] Body temperature 2022-07-13 20:05:00 36.5 Rosamaria Univ ersity [facility] Respiratory rate 2022-07-13 20:05:00 14 /min Univ ers[facility] Body height 2022-07-13 20:05:00 149.9 cm Universi ty [facility] Body weight 2022-07-13 20:05:00 54.386 kg [facility] BMI 2022-07-13 20:05:00 24.22 kg/m2 Universi ty of [facility] Oxygen saturation in 2022-07-13 20:05:00 98 /min University of Arterial blood by [facility] Pulse oximetry Branch Systolic blood 2022-06-15 15:20:00 106 mm[Hg] Univer sity of pressure [facility] Diastolic blood 2022-06-15 15:20:00 73 mm[Hg] Unive rsity of pressure [facility] Branch Heart rate 2022-06-15 15:20:00 71 /min Universi ty of [facility] Body temperature 2022-06-15 15:20:00 36.67 Rosamaria Univ ersity of [facility] Respiratory rate 2022-06-15 15:20:00 15 /min Univ ersity of [facility] Body weight 2022-06-15 15:20:00 52.617 kg [facility]i ty [facility] Systolic blood 2022-05-10 19:17:00 110 mm[Hg] Univer sity of pressure [facility] Diastolic blood 2022-05-10 19:17:00 78 mm[Hg] Unive rsity of pressure [facility] Heart rate 2022-05-10 19:17:00 95 /min [facility] [place] [facility] [place] Body temperature 2022-05-10 19:17:00 36.72 Ros[facility]aria Univ ers[facility] Respiratory rate 2022-05-10 19:17:00 15 /min Univ [facility] Body weight 2022-05-10 19:17:00 53.207 kg [facility] Systolic blood 2022-04-05 15:51:00 95 mm[Hg] Univer sity of pressure [facility] Diastolic blood 2022-04-05 15:51:00 61 mm[Hg] Unive rsity of pressure [facility] Heart rate 2022-04-05 15:51:00 80 /min [facility]i ty [facility] Body temperature 2022-04-05 15:51:00 36.56 Ros[facility] Univ ers[facility] Respiratory rate 2022-04-05 15:51:00 15 /min Univ ers[facility] Body weight 2022-04-05 15:51:00 53.524 kg [facility]i ty [facility] Systolic blood 2022-03-28 14:53:00 112 mm[Hg] Univer sity of pressure [facility] Diastolic blood 2022-03-28 14:53:00 74 mm[Hg] Unive rsity of pressure [facility] Heart rate 2022-03-28 14:53:00 94 /min Universi ty [facility] Body temperature 2022-03-28 14:53:00 36.56 Rosamaria Univ ersity [facility] Respiratory rate 2022-03-28 14:53:00 15 /min Univ ersity of [facility] Body weight 2022-03-28 14:53:00 54.114 kg [facility] [place] [facility] [place] BMI 2022-03-28 14:53:00 24.10 kg/m2 [facility] Systolic blood 2022-03-24 17:02:00 114 mm[Hg] Univer sity of pressure [facility] Diastolic blood 2022-03-24 17:02:00 78 mm[Hg] Unive rsity of pressure [facility] Heart rate 2022-03-24 17:02:00 83 /min Universi ty [facility] Body temperature 2022-03-24 17:02:00 37 Ros[place] Univ ersity [facility] Body height 2022-03-24 17:02:00 149.9 cm [facility]i [facility] Body weight 2022-03-24 17:02:00 52.799 kg [facility] BMI 2022-03-24 17:02:00 23.51 kg/m2 [facility] Oxygen saturation in 2022-03-24 17:02:00 100 /min University Arterial blood by [facility] Pulse oximetry Branch Systolic blood 2022-03-16 13:28:00 103 mm[Hg] Univer sity of pressure [facility] Diastolic blood 2022-03-16 13:28:00 70 mm[Hg] Unive rsity of pressure [facility] Heart rate 2022-03-16 13:28:00 79 /min [facility] Body temperature 2022-03-16 13:28:00 36.56 Rosamaria [facility] Respiratory rate 2022-03-16 13:28:00 15 /min [facility] Body weight 2022-03-16 13:28:00 52.753 kg [facility] Systolic blood 2022-02-18 20:07:00 106 [facility] Diastolic blood 2022-02-18 20:07:00 69 mm[Hg] [facility] 2022-02-18 20:07:00 80 [facility] 2022-02-18 20:07:00 15 /min [facility] Body weight 2022-02-18 20:07:00 53.797 kg [facility] Procedures Procedure Date / Time Performing Clinician Source Performed AUTHORIZATION FOR RELEASE 2023-02-24 05:01:00 Doctor Mohini, [facility] Name [facility] AUTHORIZATION FOR RELEASE 2023-02-10 05:01:00 Doctor Unakleber, [facility] Name [facility] POCT MOLECULAR STREP 2022-12-27 17:52:00 Unknown, Attending [facility] ASSIGNMENT OF BENEFITS 2022-11-01 13:00:39 Doctor Unakleber, [facility] Name [facility] POCT URINALYSIS 2022-06-15 00:00:00 [facility]ari Cabrera[facility]ly [facility] POCT MOLECULAR FLU 2022-03-24 17:51:00 Unknown, Attending Adarsh pemberton [facility] POCT MOLECULAR STREP 2022-03-24 17:45:00 Unknown, Attending [facility] INSURANCE CORRESPONDENCE 2022-03-18 05:01:00 Doctor Mohini, [facility] Name [facility] Encounters Start End Encounter Admission Attending Care Care Encounter Source Date/Time Date/Time Type Type Clinicians Facility Department ID 2023-03-10 2023-03-10 Outpatient R DAMASO [facility] [id number] Univers 09:10:00 09:10:00 , DAMARI putnam [facility] 2023-02-24 2023-02-24 Orders Doctor RENU 1.2.840.114 [id number] Univers 00:00:00 00:00:00 Only Unassigned, MYNOR 350.1.13.10 ity [facility] [place] [facility] 4.2.7.2.686 [place] as [id number] [address] 2023-02-10 2023-02-10 Orders Doctor RENU 1.2.840.114 [id number] Univers 00:00:00 00:00:00 Only Unassigned, MYNOR 350.1.13.10 [facility]y [facility] [place] [facility] 4.2.7.2.686 [place] as [id number] [address] 2023-02-07 2023-02-07 Outpatient R [facility] [place] [id number] Univers 15:50:00 16:28:03 , DAMARI putnam [facility] 2023-02-07 2023-02-07 Office [facility] 1.2.840.114 [id number] Univers 15:50:00 16:28:03 Visit , Damari FRAIRE 350.1.13.10 [facility] [place] [place] [facility] [id number] [address] 2023-02-07 2023-02-07 Refill [facility] 1.2.840.114 [id number] Univers 00:00:00 00:00:00 , Damari FRAIRE 350.1.13.10 [facility] [place] [place] [facility] [facility] [id number] [address] 2023-02-03 2023-02-03 [facility] 1.2.840.114 [id number] Univers 00:00:00 00:00:00 Mauri HEALTH 350.1.13.10 it y of [place] 4.2.7.2.686 [place]iel as JENNIFER?BLEA [id number] Vt [address] MEDICAL OFFICE BUILDING 2023-02-01 2023-02-01 Outpatient R SUSAN [facility] [id number] Univers 17:00:00 17:12:19 SHAHZAD putnam [facility] 2023-02-01 2023-02-01 Urgent Shahzad Davis [facility] 1.2.840.114 [id number] Univers 17:00:00 17:12:19 Care Unknown, Attending HEALTH 350.1.13.10 ity of [place] 4.2.7.2.686 [place]iel as JENNIFER?BLEA [id number] [address] OFFICE [facility] 2023-02-01 2023-02-01 Telephone [facility] 1.2.840.11 [id number] Univers 00:00:00 00:00:00 , Damari FRAIRE 350.1.13.10 [facility] [place] [place] [facility] [id number] [address] 2023-02-01 2023-02-01 Letter Susan [facility] 1.2.840.114 [id number] Univers 00:00:00 00:00:00 (Out) [facility] 350.1.13.10 it y of [place] 4.2.7.2.686 [place] as JENNIFER?BLEA [id number] [address] 2022-12-28 2022-12-28 Telephone [facility] 1.2.840.11 [id number] Univers 00:00:00 00:00:00 , Damari FRAIRE 350.1.13.10 [facility] [place] [place] [facility] [id number] [address] 2022-12-27 2022-12-27 Outpatient R JOSE [facility] [id number] Univers 12:40:00 13:04:37 MAURI ity of [facility] 2022-12-27 2022-12-27 Urgent Mauri Garcia [facility] 1.2.840.114 [id number] Univers 12:40:00 13:04:37 Care Unknown, Attending HEALTH 350.1.13.10 ity of [place] 4.2.7.2.686 [place] JENNIFER?BLEA [id number] [address] 2022-12-27 2022-12-27 Gordo Garcia [facility] 1.2.840.114 [id number] Univers 00:00:00 00:00:00 (Out) [facility] 350.1.13.10 it y of [place] 4.2.7.2.686 [place] JENNIFER?BLEA [id number] [address] MEDICAL OFFICE BUILDING 2022-12-21 2022-12-21 Outpatient R [facility] [id number] Univers 13:30:00 13:30:00 , DAMARI putnam [facility] 2022-11-30 2022-11-30 Outpatient R [facility] [place] [id number] [facility] 13:50:00 14:07:37 , DAMARI putnam [facility] 2022-11-30 2022-11-30 Office [facility] 1.2.840.114 [id number] [facility] 13:50:00 14:07:37 Visit , Damari FRAIRE 350.1.13.10 it y [facility].2.7.2.686 [facility] [id number] [address] 2022-11-23 2022-11-23 Refill [facility] 1.2.840.114 [id number] Univers 00:00:00 00:00:00 , Damari FRAIRE 350.1.13.10 [facility] [place] [facility] [facility] [id number] [address] 2022-11-01 2022-11-01 Office [facility] 1.2.840.114 [id number] Univers 08:30:00 08:30:00 Visit , Damari FRAIRE 350.1.13.10 it y of PEDIATRIC 4.2.7.2.686 Te [facility] [id number] [address] 2022-11-01 2022-11-01 Outpatient R [facility] [place] [id number] Univers 08:30:00 08:28:24 , DAMARI putnam [facility] 2022-11-01 2022-11-01 Orders Doctor SEARS 1.2.840.114 [id number] Univers 00:00:00 00:00:00 Only Unassigned, MYNOR 350.1.13.10 ity [facility] [place] [facility] 4.2.7.2.686 [place] as [id number] [facility] 009 Branch 2022-11-01 2022-11-01 Telephone [facility] 1.2.840.11 [id number] Univers 00:00:00 00:00:00 , Damari FRAIRE 350.1.13.10 [facility] [place] [place] [facility] [id number] [facility] [address] [place] 2022-10-17 2022-10-17 Patient Doctor [facility] [id number] [id number] Univers 00:00:00 00:00:00 Secure Msg Unassigned, JUNO 350.1.13.10 [facility]y [place] [facility]7.[facility] [place] [facility] [id number] [facility] [address] 2022-08-08 2022-08-08 Outpatient R [facility] [place] [id number] Univers 12:30:00 12:30:00 , DAMARI putnam [facility] 2022-07-20 2022-07-20 [facility] [id number] Univers 18:00:00 18:27:35 MARCUS putnam [facility] 2022-07-20 2022-07-20 Urgent Marcus Hendrix [facility] 1.2.840.114 [id number] Univers 18:00:00 18:27:35 Care Unknown, Attending HEALTH 350.1.13.10 ity of [place] 4.2.7.2.686 [place] JENNIFER?BLEA [id number] V[address] dic[address] MEDICAL OFFICE BUILDING 2022-07-14 2022-07-14 Letter RENU Hicks 1.2.840.114 [id number] Univers 00:00:00 00:00:00 (Out) Anamaria LOWE 350.1.13.10 it y of HOSPITAL 4.2.7.2.686 Oziel as [id number] [facility] [address] 2022-07-14 2022-07-14 Telephone [facility] 1.2.840.11 4 [id number] Univers 00:00:00 00:00:00 , Damari FRAIRE 350.1.13.10 it y [place] [facility] [id number] [address] 2022-07-13 2022-07-13 Outpatient R JOSE [facility] [id number] Univers 14:00:00 14:11:52 MAURI itsamreen [facility] 2022-07-13 2022-07-13 Urgent Jose [facility] 1.2.840.114 [id number] Univers 14:00:00 14:11:52 Care Unknown, Attending HEALTH 350.1.13.10 ity of [place] 4.2.7.2.686 Oziel as JENNIFER?BLEA [id number] [address] MEDICAL OFFICE [facility] 2022-07-13 2022-07-13 [facility] 1.2.840.114 [id number] Univers 00:00:00 00:00:00 (Out) [facility] 350.1.13.10 it y of [place] 4.2.7.2.686 Oziel as JENNIFER?BLEA [id number] [address] OFFICE [facility] 2022-06-15 2022-06-15 Outpatient R [facility] [id number] Univers 09:10:00 10:07:28 , DAMARI putnam [facility] 2022-06-15 2022-06-15 Office [facility] 1.2.840.114 [id number] Univers 09:10:00 10:07:28 Visit , Damari FRAIRE 350.1.13.10 it y [place] [facility] [id number] [address] 2022-06-15 2022-06-15 Letter [facility] 1.2.840.114 [id number] Univers 00:00:00 00:00:00 (Out) , Damari FRAIRE 350.1.13.10 it y [place] [facility] 385.0070925 [address] 2022-05-10 2022-05-10 Outpatient R [facility] [id number] Univers 13:10:00 13:35:38 , DAMARI putnam [facility] 2022-05-10 2022-05-10 Office [facility] 1.2.840.114 [id number] [facility] 13:10:00 13:35:38 Visit , Damari FRAIRE 350.1.13.10 it y [place] [facility] [id number] [address] 2022-05-10 2022-05-10 Letter [facility] 1.2.840.114 [id number] Univers 00:00:00 00:00:00 (Out) , Damari FRAIRE 350.1.13.10 it y [place] [facility] [id number] [address] 2022-05-10 2022-05-10 Telephone [facility] 1.2.840.11 4 [id number] Univers 00:00:00 00:00:00 , Damari FRAIRE 350.1.13.10 it y [place] [facility] [id number] [address] 2022-04-18 2022-04-18 Outpatient R [facility] [id number] Univers 08:30:00 08:30:00 , DAMARI jersey [facility] 2022-04-05 2022-04-05 Outpatient R [facility] [id number] Univers 10:50:00 11:01:07 , DAMARI putnam [facility] 2022-04-05 2022-04-05 Office [facility] 1.2.840.114 [id number] Univers 10:50:00 11:01:07 Visit , Damari FRAIRE 350.1.13.10 it y [place] [facility] [facility] [id number] [address] 2022-04-05 2022-04-05 Letter [facility] 1.2.840.114 [id number] Univers 00:00:00 00:00:00 (Out) , Damari FRAIRE 350.1.13.10 it y [place] [facility] [id number] [address] 2022-04-05 2022-04-05 Telephone [facility] 1.2.840.11 [id number] Univers 00:00:00 00:00:00 , Damair FRAIRE 350.1.13.10 it y [place] [facility] [id number] [address] 2022-03-28 2022-03-28 Outpatient R [facility] [id number] Univers 09:50:00 10:23:42 , DAMARI putnam of [facility] 2022-03-28 2022-03-28 Office [facility] 1.2.840.114 [id number] [facility] 09:50:00 10:23:42 Visit , Damari FRAIRE 350.1.13.10 it y [place] [facility] [id number] [address] 2022-03-28 2022-03-28 Letter [facility] 1.2.840.114 [id number] Univers 00:00:00 00:00:00 (Out) , Damari FRAIRE 350.1.13.10 it y [place] [facility] [facility] [id number] [address] 2022-03-25 2022-03-25 Telephone Susan [facility] 1.2.840.114 [id number] Univers 00:00:00 00:00:00 Shahzad HEALTH 350.1.13.10 it y of [place] 4.2.7.2.686 Oziel as JENNIFER?BLEA [id number] [address] MEDICAL OFFICE BUILDING 2022-03-24 2022-03-24 Urgent Shahzad Davis [facility] 1.2.840.114 [id number] Univers 12:00:00 12:20:00 Care Unknown, Attending HEALTH 350.1.13.10 ity of [place] 4.2.7.2.686 Oziel as JENNIFER?BLEA [id number] [address] MEDICAL OFFICE [facility] 2022-03-24 2022-03-24 Outpatient R SUSAN [facility] [id number] Univers 12:00:00 12:00:00 RASHEEDCOLLIN maria isabelsamreen [facility] 2022-03-24 2022-03-24 Letter Susan [facility] 1.2.840.114 [id number] Univers 00:00:00 00:00:00 (Out) [facility] 350.1.13.10 it y of [place] 4.2.7.2.686 Oziel as JENNIFER?BLEA [id number] [address] MEDICAL OFFICE [facility] 2022-03-18 2022-03-18 Orders Doctor RENU 1.2.840.114 [id number] Univers 00:00:00 00:00:00 Only Unassigned, MYNOR 350.1.13.10 ity of [place] [facility] 4.2.7.2.686 Oziel as [id number] [address] 2022-03-17 2022-03-17 Telephone [facility] 1.2.840.11 4 [id number] Univers 00:00:00 00:00:00 , Damari FRAIRE 350.1.13.10 it y [place] [facility] [place] [facility] [id number] [address] 2022-03-16 2022-03-16 Outpatient R [facility] [id number] Univers 08:30:00 08:53:33 , DAMARI putnam [facility] 2022-03-16 2022-03-16 Office [facility] 1.2.840.114 [id number] Univers 08:30:00 08:53:33 Visit , Damari FRAIRE 350.1.13.10 it y [place] [facility] [facility] [id number] [address] 2022-03-16 2022-03-16 Letter [facility] 1.2.840.114 [id number] Univers 00:00:00 00:00:00 (Out) , Damari FRAIRE 350.1.13.10 it y [place] [facility] [facility] [id number] [address] 2022-03-16 2022-03-16 Telephone [facility] 1.2.840.11 [id number] Univers 00:00:00 00:00:00 , Damari FRAIRE 350.1.13.10 it y [place] [facility] [id number] [address] 2022-02-18 2022-02-18 Office [facility] 1.2.840.114 [id number] Univers 15:10:00 15:47:46 Visit , Damari FRAIRE 350.1.13.10 it y of [place] [facility] [id number] [address] 2022-02-18 2022-02-18 Outpatient R [facility] [id number] Univers 15:10:00 15:47:46 , DAMARI putnam [facility] 2022-02-18 2022-02-18 Outpatient R [facility] [id number] Univers 15:10:00 15:10:00 , DAMARI jersey [facility] 2022-02-18 2022-02-18 Letter [facility] 1.2.840.114 [id number] Univers 00:00:00 00:00:00 (Out) , Damari FRAIRE 350.1.13.10 it y [place] [facility] [id number] [address] 2022-02-17 2022-02-17 Patient [facility] 1.2.840.114 [id number] Univers 00:00:00 00:00:00 Secure Msg Damari 350.1.13.10 ity of [place].2.[place] [facility] [id number] [address] 2022-02-04 2022-02-04 Outpatient R [facility] [id number] Univers 14:10:00 14:10:00 , DAMARI maria isabelsamreen of [facility] 2022-01-21 2022-01-21 Outpatient R [facility] [id number] Univers 09:50:00 10:16:17 , DAMARI maria isabelsamreen [facility] 2022-01-21 2022-01-21 Office [facility] 1.2.840.114 [id number] [facility] 09:50:00 10:16:17 Visit , Damari FRAIRE 350.1.13.10 it y [place] [facility] [id number] [address] 2022-01-21 2022-01-21 Letter [facility] 1.2.840.114 [id number] Univers 00:00:00 00:00:00 (Out) , Damari FRAIRE 350.1.13.10 it y [place] [facility] [id number] [address] 2022-01-21 2022-01-21 Telephone [facility] 1.2.840.11 [id number] Univers 00:00:00 00:00:00 , Damari FRAIRE 350.1.13.10 it y [place] [facility] [id number] [address] 2022-01-21 2022-01-21 Telephone [facility] 1.2.840.11 4 [id number] Univers 00:00:00 00:00:00 , Damari FRAIRE 350.1.13.10 it y of [place] [facility] [id number] [address] 2022-01-17 2022-01-17 Outpatient R [facility] [id number] Univers 09:10:00 09:37:10 , DAMARI putnam [facility] 2022-01-17 2022-01-17 Office [facility] 1.2.840.114 [id number] Univers 09:10:00 09:37:10 Visit , Damari FRAIRE 350.1.13.10 it y [place] [facility] [id number] [address] 2022-01-11 2022-01-11 Telephone [facility] 1.2.840.11 [id number] Univers 00:00:00 00:00:00 , Damari FRAIRE 350.1.13.10 it y [place] [facility] 727.6899511 [address] 2022-01-05 2022-01-05 Office Tianna [facility] 1.2.840.114 [id number] Univers 13:40:00 14:42:34 Visit JUNO 350.1.13.10 it y of [place].2.[place] [facility] [id number] [address] 2022-01-05 2022-01-05 Outpatient R TIANNA [facility] [id number] Univers 13:40:00 14:42:34 ity [facility] 2022-01-05 2022-01-05 Outpatient R TIANNA [facility] [id number] Univers 13:40:00 13:40:00 ity [facility] 2021-12-17 2021-12-17 Outpatient R [facility] [id number] Univers 12:30:00 12:50:58 , DAMARI ity [facility] 2021-12-17 2021-12-17 Office [facility] 1.2.840.114 [id number] Univers 12:30:00 12:50:58 Visit , Damari FRAIRE 350.1.13.10 it y [place] [facility] [id number] [address] 2021-12-17 2021-12-17 Telephone [facility] 1.2.840.11 [id number] Univers 00:00:00 00:00:00 , Damari FRAIRE 350.1.13.10 it y [place] [facility] [id number] [address] 2021-12-01 2021-12-01 Outpatient R [facility] [id number] Univers 13:50:00 13:50:00 , DAMARI samreen [facility] 2021-12-01 2021-12-01 Outpatient R [facility] [id number] Univers 13:50:00 13:50:00 , DAMARI samreen [facility] 2021-11-30 2021-11-30 [employer] [facility] 1.2.840.1 14 [id number] Univers 14:30:00 14:45:00 Visit Mauri Garcia [facility] 350.1.13.10 [facility] 4.2.7.2.686 Oziel as JENNIFER?BLEA [id number] [facility] [address] [facility] OFFICE [facility] 2021-11-30 2021-11-30 [facility] [id number] Univers 14:30:00 14:30:[address] [facility] 2021-11-30 2021-11-30 [facility] [id number] Univers 14:30:00 14:30:[address] [facility] 2021-11-30 2021-11-30 Urgent Jose [facility] 1.2.840.114 [id number] Univers 14:00:00 14:13:53 [facility] 350.1.13.10 ity of [place] 4.2.7.2.686 Oziel as JENNIFER?BLEA [id number] [facility] 2021-11-30 2021-11-30 [facility] 1.2.840.114 [id number] Univers 00:00:00 00:00:00 (Out) Mauri HEALTH 350.1.13.10 it y of [place] 4.2.7.2.686 Oziel as JENNIFER?BLEA [id number] [facility] [address] [facility] OFFICE [facility] 2021-11-16 2021-11-16 Outpatient R [facility] [id number] Univers 10:50:00 11:00:31 , DAMARI jersey [facility] 2021-11-16 2021-11-16 Office [facility] 1.2.840.114 [id number] Univers 10:50:00 11:00:31 Visit , Damari FRAIRE 350.1.13.10 it y [place] [facility] [id number] [address] 2021-11-16 2021-11-16 Letter [facility] 1.2.840.114 [id number] Univers 00:00:00 00:00:00 (Out) , Damari FRAIRE 350.1.13.10 it y [place].2.[place] [facility] 737.3394373 [address] 2021-11-16 2021-11-16 Telephone [facility] 1.2.840.11 4 [id number] Univers 00:00:00 00:00:00 , Damari FRAIRE 350.1.13.10 it y of [facility].2.[place] [facility] [id number] [address] 2021-11-15 2021-11-15 Telephone [facility] 1.2.840.11 [id number] Univers 00:00:00 00:00:00 , Damari FRAIRE 350.1.13.10 it y of [place].2.[place] [facility] 562.4787831 [address] 2021-11-15 2021-11-15 Patient [facility] 1.2.840.114 [id number] Univers 00:00:00 00:00:00 Secure Msg , Damari FRAIRE 350.1.13.10 ity of P[place].2.[place] [facility] [id number] [address] 2021-11-09 2021-11-09 Debbie Parekh [facility] 1.2.840.114 [id number] Univers 13:20:00 13:40:00 [facility] 350.1.13.10 it y of [place] 4.2.7.2.686 Oziel as JENNIFER?BLEA [id number] [address] MEDICAL OFFICE BUILDING 2021-11-09 2021-11-09 Outpatient [facility] [id number] Univers 13:20:00 13:20:00 INOCENCIA nicolassamreen [facility] 2021-11-09 2021-11-09 Telephone [facility] 1.2.840.11 [id number] Univers 00:00:00 00:00:00 , Damari FRAIRE 350.1.13.10 it y of [place].2.[place] [facility] [id number] [address] 2021-11-09 2021-11-09 Letter Provider, [facility] 1.2.135.226 [id number] Univers 00:00:00 00:00:00 (Out) Santhosh [facility] 350.1.13.10 it y of Urgent Care [place] 4.2.7.2.686 [facility]?BLEA [id number] [address] MEDICAL OFFICE BUILDING 2021-11-05 2021-11-05 Outpatient R [facility] [id number] Univers 10:10:00 10:10:00 , DAMARI jersey [facility] 2021-09-28 2021-09-28 Outpatient R [facility] [id number] Univers 09:30:00 10:16:04 , DAMARI jersey [facility] 2021-09-28 2021-09-28 Office [facility] 1.2.840.114 [id number] Univers 09:30:00 10:16:04 Visit , Damari FRAIRE 350.1.13.10 it y of PEDIATRIC 4.2.7.2.686 [facility] [id number] [address] 2021-09-27 2021-09-27 Letter [facility] 1.2.840.114 [id number] Univers 00:00:00 00:00:00 (Out) , Damari FRAIRE 350.1.13.10 it y [place] [facility] [id number] [address] 2021-09-09 2021-09-09 Outpatient Dario LAINEZ [facility] [id number] Univers 14:40:00 15:31:59 YUDITH putnam of [facility] 2021-09-09 2021-09-09 Office Jonny [facility] 1.2.840.114 [id number] Univers 14:40:00 15:31:59 Visit Yudith FRAIRE 350.1.13.10 it y of [place].2.[place] [facility] [id number] [address] 2021-09-09 2021-09-09 Orders Doctor RENU 1.2.840.114 [id number] Univers 00:00:00 00:00:00 Only Unassigned, MYNOR 350.1.13.10 ity of [place] [facility] 4.2.7.2.686 Oziel as [id number] [address] 2021-08-27 2021-08-27 Telephone [facility] 1.2.840.11 [id number] Univers 00:00:00 00:00:00 , Damari FRAIRE 350.1.13.10 it y of [place] [facility] [id number] [address] 2021-08-26 2021-08-26 Refill [facility] 1.2.840.114 [id number] Univers 00:00:00 00:00:00 , Damari FRAIRE 350.1.13.10 it y [place].2.[place] [facility] [id number] [address] 2021-08-24 2021-08-24 [facility] [id number] Univers 10:30:00 11:05:52 , DAMARI putnam of [facility] 2021-08-24 2021-08-24 Office [facility] 1.2.840.114 [id number] Univers 10:30:00 11:05:52 Visit , Damari FRAIRE 350.1.13.10 it y [place] [facility] [id number] [address] 2021-08-24 2021-08-24 Outpatient R [facility] [id number] Univers 10:30:00 11:05:52 , DAMARI putnam [facility] 2021-08-24 2021-08-24 Letter [facility] 1.2.840.114 [id number] Univers 00:00:00 00:00:00 (Out) , Damari FRAIRE 350.1.13.10 it y [place] [facility] [id number] [address] 2021-08-13 2021-08-13 Outpatient R [facility] [id number] Univers 12:30:00 12:30:00 , DAMARI jersey [facility] 2021-08-13 2021-08-13 Outpatient R [facility] [id number] Univers 10:30:00 11:19:35 , DAMARI jersey [facility] 2021-08-13 2021-08-13 Office [facility] 1.2.840.114 [id number] [facility] 10:30:00 11:19:35 Visit , Damari FRAIRE 350.1.13.10 it y [place] [facility] [id number] [address] 2021-08-13 2021-08-13 Letter [facility] 1.2.840.114 [id number] Univers 00:00:00 00:00:00 (Out) , Damari FRAIRE 350.1.13.10 it y [facility] [place].2.[place] [facility] [id number] [address] 2021-08-04 2021-08-04 [facility] 1.2.840.114 [id number] Univers 10:40:00 11:16:12 Visit JUNO 350.1.13.10 it y [place].2.[place] [facility] 279.6578735 [address] 2021-08-04 2021-08-04 Outpatient COLBY PRAKASH [facility] [id number] [facility] 10:40:00 11:16:12 ity [facility] 2021-08-04 2021-08-04 Outpatient R TIANNA, [facility] [id number] [facility] 10:40:00 10:40:00 ity of [facility] 2021-08-04 2021-08-04 Letter Colby Wynn [facility] 1.2.840.114 [id number] Univers 00:00:00 00:00:00 (Out) JUNO 350.1.13.10 it y [facility] [place].2.[place] [facility] [id number] [address] 2021-08-03 2021-08-03 Telephone Colby Wynn [facility] 1.2.840.114 [id number] Univers 00:00:00 00:00:00 JUNO 350.1.13.10 it y [place]7.2.[place] [facility] [id number] [address] 2021-07-28 2021-07-28 Office Colby Wynn [facility] 1.2.840.114 [id number] Univers 08:40:00 09:08:31 Visit JUNO 350.1.13.10 it y [facility] [place].2.[place] [facility] [id number] [address] 2021-07-28 2021-07-28 Outpatient R COLBY WYNN [facility] [id number] Univers 08:40:00 09:08:31 ity of [facility] 2021-07-28 2021-07-28 Outpatient R COLBY WYNN [facility] [id number] Univers 08:40:00 08:40:00 ity of [facility] 2021-07-28 2021-07-28 Letter Colby Wynn [facility] 1.2.840.114 [id number] Univers 00:00:00 00:00:00 (Out) JUNO 350.1.13.10 it y [place] [facility] 546.6421786 [address] 2021-07-26 2021-07-26 Telephone Colby Wynn [facility] 1.2.840.114 [id number] Univers 00:00:00 00:00:00 JUNO 350.1.13.10 it y [place].2.[place] [facility] 274.3683249 [address] 2021-07-22 2021-07-22 Office [facility] 1.2.840.114 [id number] Univers 08:40:00 09:00:00 Visit Yudith FRAIRE 350.1.13.10 it y of [place].2.[place] [facility] [id number] [address] 2021-07-22 2021-07-22 Outpatient R [facility] [id number] Univers 08:40:00 08:40:00 YUDITH putnam [facility] 2021-07-22 2021-07-22 Letter [facility] 1.2.840.114 [id number] Univers 00:00:00 00:00:00 (Out) Yudith FRAIRE 350.1.13.10 it y of [place].2.[place] [facility] [id number] [address] 2021-07-22 2021-07-22 Telephone [facility] 1.2.840.11 [id number] Univers 00:00:00 00:00:00 Yudith FRAIRE 350.1.13.10 it y of [place].2.[place] [facility] [id number] [address] 2021-07-22 2021-07-22 Telephone [facility] 1.2.840.11 [id number] Univers 00:00:00 00:00:00 Yudith FRAIRE 350.1.13.10 it y [facility] [place].2.[place] [facility] [id number] [address] 2021-07-16 2021-07-16 [id number] Univers 10:10:00 10:49:06 , DAMARI putnam [facility] 2021-07-16 2021-07-16 Office [facility] 1.2.840.114 [id number] Univers 10:10:00 10:49:06 Visit , Damari FRAIRE 350.1.13.10 [facility] [id number] [address] 2021-07-16 2021-07-16 Letter [facility] 1.2.840.114 [id number] [facility] 00:00:00 00:00:00 (Out) , Damari FRAIRE 350.1.13.10 [facility]7.[facility] [id number] [address] 2021-07-16 2021-07-16 Telephone [facility] 1.2.840.11 [id number] [facility] 00:00:00 00:00:00 , Damari FRAIRE 350.1.13.10 [facility] 4[facility]7.[facility] [id number] [address] 2021-07-16 2021-07-16 Telephone Colby Wynn [facility] 1.2.840.114 [id number] [facility] 00:00:00 00:00:00 JUNO 350.1.13.10 it [facility] 4[facility].7.2.[facility] [id number] [address] 2021-07-06 2021-07-06 Telephone [facility] 1.2.840.11 [id number] [facility] 00:00:00 00:00:00 , Damari FRAIRE 350.1.13.10 [facility] 4[facility]7.[facility] [id number] [address] 2021-07-02 2021-07-02 Outpatient R [facility] [place] [id number] Univers 10:10:00 10:59:31 , DAMARI putnam of [facility] 2021-07-02 2021-07-02 Office [facility] 1.2.840.114 [id number] Univers 10:10:00 10:59:31 Visit , Damari FRAIRE 350.1.13.10 it [facility] 4[facility].7.2.[facility] [id number] [address] 2021-07-02 2021-07-02 Outpatient R [facility] [place] [id number] Univers 10:10:00 10:59:31 , DAMARI putnam [facility] 2021-07-02 2021-07-02 Letter [facility] 1.2.840.114 [id number] [facility] 00:00:00 00:00:00 (Out) , Damari FRAIRE 350.1.13.10 [facility] 4[facility]7.2.[facility] [id number] [address] 2021-07-02 2021-07-02 Telephone [facility] 1.2.840.11 4 [id number] [facility] 00:00:00 00:00:00 , Damari FRAIRE 350.1.13.10 [facility] 4[facility].7.2.[facility] [id number] [address] 2021-06-24 2021-06-24 Telephone [facility] 1.2.840.11 [id number] [facility] 00:00:00 00:00:00 , Damari FRAIER 350.1.13.10 [facility] 4[facility].7.2.[facility] [id number] [address] 2021-06-18 2021-06-18 Outpatient R [facility] [id number] Univers 08:30:00 09:08:45 , DAMARI putnam [facility] 2021-06-18 2021-06-18 Office [facility] 1.2.840.114 [id number] Univers 08:30:00 09:08:45 Visit , Damari FRAIRE 350.1.13.10 [facility] 4[facility].7.2.[facility] [id number] [address] 2021-06-18 2021-06-18 Outpatient R [facility] [id number] Univers 08:30:00 09:08:45 , DAMARI putnam [facility] 2021-06-18 2021-06-18 [facility] [id number] Univers 08:30:00 08:30:00 , DAMARI putnam [facility] 2021-06-18 2021-06-18 Letter [facility] 1.2.840.114 [id number] [facility] 00:00:00 00:00:00 (Out) , Damari FRAIRE 350.1.13.10 [facility]7.2.[facility] [id number] [address] 2021-06-18 2021-06-18 Telephone [facility] 1.2.840.11 4 [id number] Univers 00:00:00 00:00:00 , Damari FRAIRE 350.1.13.10 [facility]7.2.[facility] [id number] [address] 2021-06-18 2021-06-18 Telephone Colby Wynn [facility] 1.2.840.114 [id number] Univers 00:00:00 00:00:00 JUNO 350.1.13.10 it y [facility] [place] [facility] [id number] [address] 2021-05-26 2021-05-26 Telephone [facility] 1.2.840.11 [id number] Univers 00:00:00 00:00:00 , Damari FRAIRE 350.1.13.10 it y of P[facility]ATR[facility] [place] [facility] [id number] [address] 2021-05-25 2021-05-25 Office [facility] 1.2.840.114 [id number] Univers 13:30:00 14:30:05 Visit , Damari FRAIRE 350.1.13.10 it y of [facility] [id number] [address] 2021-05-25 2021-05-25 Outpatient R [facility] [id number] Univers 13:30:00 14:30:05 , DAMARI putnam [facility] 2021-05-25 2021-05-25 Outpatient [facility] [id number] Univers 13:30:00 13:30:00 , DAMARI putnam [facility] 2021-05-18 2021-05-18 Outpatient R [facility] [id number] [facility] 10:30:00 10:51:45 , DAMARI putnam [facility] 2021-05-18 2021-05-18 Office [facility] 1.2.840.114 [id number] [facility] 10:24:14 10:51:45 Visit , Damari FRAIRE 350.1.13.10 it y [facility] [id number] [address] 2021-05-18 2021-05-18 Outpatient R [facility] [id number] [facility] 10:30:00 10:30:00 , DAMARI putnam [facility] 2021-05-18 2021-05-18 Letter [facility] 1.2.840.114 [id number] Univers 00:00:00 00:00:00 (Out) , Damari FRAIRE 350.1.13.10 it y [facility] [place] [facility] [id number] [address] 2021-05-18 2021-05-18 Telephone [facility] 1.2.840.11 [id number] Univers 00:00:00 00:00:00 , Damari FRAIRE 350.1.13.10 it y of [facility] [id number] [address] 2021-05-14 2021-05-14 Outpatient R [facility] [place] [id number] Univers 10:10:00 10:35:09 , DAMARI putnam [facility] 2021-05-14 2021-05-14 Office [facility] 1.2.840.114 [id number] Univers 09:52:11 10:35:09 Visit , Damari FRAIRE 350.1.13.10 it y of [facility] [id number] [address] 2021-05-14 2021-05-14 Letter [facility] 1.2.840.114 [id number] Univers 00:00:00 00:00:00 (Out) , Damari FRAIRE 350.1.13.10 it y of [facility] [place] [facility] [facility] [id number] [facility] [address] 2021-05-14 2021-05-14 Letter [facility] 1.2.840.114 [id number] Univers 00:00:00 00:00:00 (Out) , Damari FRAIRE 350.1.13.10 it y of [facility] [id number] [address] 2021-04-23 2021-04-23 Outpatient R [facility] [place] [id number] Univers 08:59:40 23:59:00 , DAMARI putnam of [facility] 2021-04-23 2021-04-23 [facility] 1.2.840.114 [id number] Univers 08:59:40 23:59:00 Encounter , Damari MONK 350.1.13.10 ity of [place] 4.2.7.2.686 [facility] [id number] [facility] [address] 2021-04-21 2021-04-21 Outpatient R [facility] [place] [id number] Univers 10:10:00 10:49:32 , DAMARI putnam of [facility] 2021-04-21 2021-04-21 Office [facility] 1.2.840.114 [id number] Univers 10:00:56 10:49:32 Visit , Damari FRAIRE 350.1.13.10 it y of [facility] [id number] [address] 2021-04-21 2021-04-21 Letter [facility] 1.2.840.114 [id number] Univers 00:00:00 00:00:00 (Out) , Damari FRAIRE 350.1.13.10 it y of P[facility]ATR[facility] [place] [facility] [id number] [address] 2021-04-17 2021-04-17 Orders Doctor SEARS 1.2.840.114 [id number] Univers 00:00:00 00:00:00 Only Unassigned, MYNOR 350.1.13.10 ity of [place] 4.2.7.2.686 Oziel as [id number] [facility] [address] 2021-04-16 2021-04-16 Office [facility] 1.2.840.114 [id number] Univers 10:36:43 10:51:24 Visit , Damari FRAIRE 350.1.13.10 it y of [facility] [phone] [facility] [address] 2021-04-16 2021-04-16 Outpatient R [facility] [place] [id number] Univers 10:30:00 10:51:24 , DAMARI putnam [facility] 2021-04-16 2021-04-16 Outpatient R [facility] [place] [id number] Univers 10:30:00 10:51:24 , DAMARI putnam [facility] 2021-04-16 2021-04-16 Letter [facility] 1.2.840.114 [id number] Univers 00:00:00 00:00:00 (Out) , Damari FRAIRE 350.1.13.10 it y of P[facility] [id number] [address] 2021-04-16 2021-04-16 Telephone [facility] 1.2.840.11 [id number] Univers 00:00:00 00:00:00 , Damari FRAIRE 350.1.13.10 it y of [facility]ATR[facility] [id number] [address] 2021-04-16 2021-04-16 Telephone Colby Wynn [facility] 1.2.840.114 [id number] Univers 00:00:00 00:00:00 JUNO 350.1.13.10 it y of PED[facility]ATR[facility].7.[facility] [id number] [facility] [address] 2021-03-17 2021-03-17 Office [facility] 1.2.840.114 [id number] [facility] 10:05:52 11:23:55 Visit , Damari Fraire 350.1.13.10 it y of [facility] 4.2.7.2.[facility] [place] [facility] [facility] [id number] [address] 2021-03-17 2021-03-17 Outpatient R [facility] [place] [id number] Univers 10:50:00 10:50:00 , DAMARI putnam [facility] 2021-03-17 2021-03-17 Letter [facility] 1.2.840.114 [id number] Univers 00:00:00 00:00:00 (Out) , Damari Fraire 350.1.13.10 it y of [facility] 4[facility]2.7.2.[facility] [facility] [id number] [address] 2021-03-17 2021-03-17 Telephone [facility] 1.2.840.11 [id number] Univers 00:00:00 00:00:00 , Damari Fraire 350.1.13.10 it y of [facility] 4[facility]2.7.2.[facility] [place] [facility] [facility] [id number] [address] 2021-03-10 2021-03-10 Office [facility] 1.2.840.114 [id number] [facility] 09:56:12 10:38:37 Visit , Damari Fraire 350.1.13.10 it y of [facility] 4[facility]2.7.2.[facility] [place] [facility] [facility] [id number] [address] 2021-03-10 2021-03-10 Outpatient R [facility] [place] [id number] Univers 10:10:00 10:10:00 , DAMARI putnam [facility] 2021-03-10 2021-03-10 Letter Colby Wynn [facility] 1.2.840.114 [id number] Univers 00:00:00 00:00:00 (Out) Juno 350.1.13.10 it y of [facility] 4[facility].7.2.[facility] [place] [facility] [facility] [id number] [address] 2020-11-12 2020-11-12 Letter Colby Wynn [facility] 1.2.840.114 [id number] Univers 00:00:00 00:00:00 (Out) Juno 350.1.13.10 it y of Pediatric 4[facility]2.7.2.[facility] [id number] [address] 2020-11-12 2020-11-12 Telephone Tianna [facility] 1.2.840.114 [id number] Univers 00:00:00 00:00:00 Juno 350.1.13.10 it y of Pediatric 4[facility]2.7.2.[facility] [facility] [id number] [address] 2020-11-11 2020-11-11 Office Tianna [facility] 1.2.840.114 [id number] Univers 13:51:27 14:10:37 Visit Juno 350.1.13.10 it y of Pediatric 4.2.7.2.[facility] [place] [facility] [facility] [id number] [address] 2020-11-11 2020-11-11 Outpatient R TIANNA [facility] [id number] Univers 13:40:00 13:40:00 ity of [facility] 2020-11-10 2020-11-10 Telephone Provider, [facility] 1.2.840.114 [id number] Univers 00:00:00 00:00:00 [facility] 350.1.13.10 ity of Care Surgical 4.2.7.2.686 [place] Specialti [phone] Vt joana es [address] [facility] 2020-11-09 2020-11-09 Urgent Provider, [facility] 1.2.840.114 [id number] Univers 12:56:25 13:16:25 [facility] 350.1.13.10 ity of [place] 4.2.7.2.686 [place] Professio [phone] Vt joana nal [address] 2020-11-09 2020-11-09 Outpatient Dario ARIAS [facility] [id number] Univers 12:00:00 12:00:00 GAYLA itsamreen [facility] 2020-09-16 2020-09-16 [employer] [facility], Ashwinj Pedi [facility] 1.2.840 .114 [id number] Univers 08:27:21 08:40:48 Visit Tianna Colby Fraire 350.1.13.10 ity of [facility] 4[facility]2.7.2.[facility] [facility] [id number] [facility] [address] 2020-09-16 2020-09-16 Outpatient R [facility] [id number] Univers 08:30:00 08:30:00 ity of [facility] 2020-09-16 2020-09-16 Letter Colby Wynn [facility] 1.2.840.114 [id number] Univers 00:00:00 00:00:00 (Out) Juno 350.1.13.10 it y of Pediatric 4[facility]2.7.2.[facility] [id number] [facility] [address] 2020-09-14 2020-09-14 Telephone de [facility] 1.2.840.114 [id number] Univers 00:00:00 00:00:00 Juno Montelongo 350.1.13.10 ity of [facility] 4.2.7.2.686 [facility] [id number] [facility] [address] 2020-09-02 2020-09-02 Office de [facility] 1.2.450.125 [id number] Univers 10:26:24 11:03:31 Visit Juno Montelongo 350.1.13.10 ity of [facility] 4.2.7.2.[facility] [place] [facility] [facility] [id number] [place] [address] [address] 2020-09-02 2020-09-02 Outpatient R DE [facility] [id number] Univers 10:40:00 10:40:00 maria isabel MONTELONGOy of [facility] 2020-09-02 2020-09-02 Orders Doctor SEARS 1.2.840.114 [id number] Univers 00:00:00 00:00:00 Only Unassigned, MYNOR 350.1.13.10 ity of [place] [facility] 4.2.7.2.686 Oz[place] as [phone] [facility] [address] 2020-09-02 2020-09-02 Letter Doctor SEARS 1.2.840.114 [id number] Univers 00:00:00 00:00:00 (Out) Unassigned, MYNOR 350.1.13.10 ity of [place] [facility] 4.2.7.2.686 Oziel as [phone] [facility] [address] 2020-09-02 2020-09-02 Letter Doctor SEARS 1.2.840.114 [id number] Univers 00:00:00 00:00:00 (Out) Unassigned, MYNOR 350.1.13.10 ity of [place] 4.2.7.2.686 Oz[place] as [id number] [facility] [address] 2020-09-02 2020-09-02 Letter de [facility] Serafin 1.2.069.121 [id number] Univers 00:00:00 00:00:00 (Out) Juno Montelongo 350.1.13.10 ity of [facility] 4[facility]2.7.2.[facility] [id number] [facility] [address] 2020-04-09 2020-04-09 Outpatient R COLBY WYNN [facility] [id number] Univers 09:00:00 09:00:00 ity of [facility] 2020-04-01 2020-04-01 Orders Doctor SEARS 1.2.840.114 [id number] 00:00:00 00:00:00 Only Unassigned, MYNOR 350.1.13.10 [facility] 4.2.7.2.686 [id number] 2020-04-01 2020-04-01 Orders Doctor RENU Adams.2.840.114 [id number] Univers 00:00:00 00:00:00 Only Unassigned, MYNOR 350.1.13.10 ity of [place] [facility] 4.2.7.2.686 Oz[place] as [id number] [facility] [address] 2020-03-17 2020-03-17 Orders Doctor RENU Adams.2.840.114 [id number] Univers 00:00:00 00:00:00 Only Unassigned, MYNOR 350.1.13.10 ity of [place] [facility] 4.2.7.2.686 Oziel as [phone] [address] 2020-03-17 2020-03-17 Orders Doctor SEARS 1.2.840.114 [id number] 00:00:00 00:00:00 Only Unassigned, MYNOR 350.1.13.10 [facility] 4.2.7.2.686 [id number] 009 2020-03-11 2020-03-11 Telephone Colby [facility] [place] 1.2.840.114 [id number] Univers 00:00:00 00:00:00 Juno 350.1.13.10 it y of Pediatric 4.2.7.2.[facility] [id number] [facility] [address] 2020-03-11 2020-03-11 Telephone Colby Wynn [facility] 1.2.840.114 [id number] 00:00:00 00:00:00 Juno 350.1.13.10 Pediatric 4.2.7.2.686 Clinic [id number] 2020-02-11 2020-02-11 Orders Doctor SEARS 1.2.840.114 [id number] Univers 00:00:00 00:00:00 Only Unassigned, MYNOR 350.1.13.10 ity of [place] [facility] 4.2.7.2.686 Oziel as [id number] [facility] [address] 2020-02-11 2020-02-11 Orders Doctor SEARS 1.2.840.114 [id number] 00:00:00 00:00:00 Only Unassigned, MYNOR 350.1.13.10 [facility] 4.2.7.2.686 [id number] 2020-01-31 2020-01-31 Telephone Colby Wynn [facility] 1.2.840.114 [id number] [facility] 00:00:00 00:00:00 Juno 350.1.13.10 it y of Pediatric 4.2.7.2.[facility] [id number] [facility] [address] 2020-01-31 2020-01-31 Telephone Colby Wynn [facility] 1.2.840.114 [id number] 00:00:00 00:00:00 Juno 350.1.13.10 Pediatric 4.2.7.2.686 Clinic [id number] 2019-12-17 2019-12-17 Orders Doctor RENU Adams.2.840.114 [id number] Univers 00:00:00 00:00:00 Only Unassigned, MYNOR 350.1.13.10 ity of [facility] 4.2.7.2.686 Oziel as [phone] [address] 2019-12-17 2019-12-17 Orders Doctor RENU 1.2.840.114 [id number] 00:00:00 00:00:00 Only Unassigned, MYNOR 350.1.13.10 [facility] 4.2.7.2.686 [id number] 2019-11-18 2019-11-18 Orders Doctor RENU 1.2.840.114 [id number] Univers 00:00:00 00:00:00 Only Unassigned, MYNOR 350.1.13.10 ity of [place] [facility] 4.2.7.2.686 Oziel as [id number] [address] 2019-11-18 2019-11-18 Orders Doctor SEARS 1.2.840.114 [id number] 00:00:00 00:00:00 Only Unassigned, MYNOR 350.1.13.10 [facility] 4.2.7.2.686 [id number] 2019-10-21 2019-10-21 Orders Doctor SEARS 1.2.840.114 [id number] Univers 00:00:00 00:00:00 Only Unassigned, MYNOR 350.1.13.10 ity of [place] [facility] 4.2.7.2.686 [place] as [id number] [address] 2019-10-21 2019-10-21 Orders Doctor RENU 1.2.840.114 [id number] 00:00:00 00:00:00 Only Unassigned, MYNOR 350.1.13.10 [facility] 4.2.7.2.686 [id number] 2019-02-22 2019-02-22 [facility] 1.2.840.11 4 [id number] 00:00:00 00:00:00 Marisel Julio 350.1.13.10 Pediatric 4.2.7.2.686 [facility] [id number] [facility] 2019-02-22 2019-02-22 Telephone [facility] 1.2.840.11 4 [id number] [facility] 00:00:00 00:00:00 Marisel Julio 350.1.13.10 ity of [facility] 4.2.7.2.[facility] 209.1420238 [facility] [address] 2019-02-21 2019-02-21 Telephone [facility] 1.2.840.11 4 [id number] 00:00:00 00:00:00 Marisel Julio 350.1.13.10 Pediatric 4.2.7.2.686 Clinic [id number] [facility] 2019-02-21 2019-02-21 Orders Doctor RENU 1.2.840.114 [id number] 00:00:00 00:00:00 Only Unassigned, MYNOR 350.1.13.10 [facility] 4.2.7.2.686 [id number] [facility] 2019-02-21 2019-02-21 Telephone [facility] 1.2.840.11 4 [id number] [facility] 00:00:00 00:00:00 Marisel Julio 350.1.13.10 ity of Pediatric 4.2.7.2.686 [facility] [id number] [place] [address] [address] 2019-02-21 2019-02-21 Orders Doctor RENU 1.2.840.[id number] [place] [address] 00:00:00 00:00:00 Only Unassigned, MYNOR 350.1.13.10 ity of [place] 4.2.7.2.686 Oziel as [id number] [facility] [address] 2019-02-20 2019-02-20 Telephone [facility] 1.2.840.11 4 [id number] 00:00:00 00:00:00 Marisel Julio 350.1.13.10 Pediatric 4.2.7.2.686 Clinic [id number] [facility] 2019-02-20 2019-02-20 Telephone [facility] 1.2.840.11 4 [id number] 00:00:00 00:00:00 Marisel Julio 350.1.13.10 Pediatric 4.2.7.2.686 Clinic [id number] [facility] 2019-02-20 2019-02-20 Telephone [facility] 1.2.840.11 4 [id number] 00:00:00 00:00:00 Marisel Julio 350.1.13.10 Pediatric 4.2.7.2.686 Clinic [id number] [facility] 2019-02-20 2019-02-20 Telephone [facility] 1.2.840.11 4 [id number] 00:00:00 00:00:00 Marisel Julio 350.1.13.10 Pediatric 4.2.7.2.686 Clinic 174.2633274 [facility] 2019-02-20 2019-02-20 Telephone [facility] 1.2.840.11 4 [id number] 00:00:00 00:00:00 Marisel Julio 350.1.13.10 Pediatric 4.2.7.2.686 Clinic [id number] [facility] 2019-02-20 2019-02-20 Telephone [facility] 1.2.840.11 4 [id number] [facility] 00:00:00 00:00:00 Marisel Julio 350.1.13.10 ity of Pediatric 4.2.7.2.[facility] [id number] [address] 2019-02-20 2019-02-20 Telephone [facility] 1.2.840.11 4 [id number] [facility] 00:00:00 00:00:00 Marisel Julio 350.1.13.10 ity of Pediatric 4.2.7.2.686 [facility] [id number] [address] 2019-02-20 2019-02-20 Telephone [facility] 1.2.840.11 4 [id number] [facility] 00:00:00 00:00:00 Marisel Julio 350.1.13.10 ity of Pediatric 4.2.7.2.686 [facility] [id number] [address] 2019-02-20 2019-02-20 Telephone [facility] 1.2.840.11 4 [id number] [facility] 00:00:00 00:00:00 SumanthWesleysamreen Fraire 350.1.13.10 ity of Pediatric 4.2.7.2.686 [facility] [id number] [address] 2019-02-20 2019-02-20 Telephone [facility] 1.2.840.11 4 [id number] [facility] 00:00:00 00:00:00 SumanthWesleysamreen Fraire 350.1.13.10 ity of Pediatric 4.2.7.2.686 [facility] [id number] [address] 2019-02-16 2019-02-16 Telephone [facility] 1.2.840.11 4 [id number] 00:00:00 00:00:00 SumanthMarisel Juno 350.1.13.10 Pediatric 4.2.7.2.686 [facility] [phone] [facility] 2019-02-16 2019-02-16 Telephone [facility] 1.2.840.11 4 [id number] [facility] 00:00:00 00:00:00 Marisel Julio 350.1.13.10 ity of Pediatric 4.2.7.2.686 [facility] [id number] [address] Results Test Description Test Time Test Comments Results Result Comments Source POCT MOLECULAR STREP 2022-12-27 18:00:17 Test Item Value Reference Range Interpretation Comme nts POCT Molecular Strep (test code = 18833-9) Negative Negative Lab Interpretation (test code = 00086-5) [facility] [id number] 15:56:00 Test Item Value Reference Range Interpretation Comments POCT U SP GRAV (test code = 1.025 mg/dl 1.005-1.025 3255) POCT PH U (test code = 3254) 5 mg/dl 5-8 POCT U LEUK EST (test code = neg Negative - Negative 3263) POCT U NIT (test code = 3262) neg Negative - Negative POCT U PROT (test code = trace Negative - Negative 3259) POCT U GLU (test code = 3256) neg Negative - Negative POCT U KETONE (test code = neg Negative - Negative 3258) POCT U UROBILI (test code = neg 0.2-1 3260) POCT U BILI (test code = neg Negative - Negative 3261) POCT U BLD (test code = 3257) 250+ Negative - Negative POCT U COLOR (test code = dark yellow 3266) POCT U APPEAR (test code = clear 3267) [facility] URINALYSIS W SPECIFIC [id number] 15:56:00 Test Item Value Reference Range Interpretation Comments POCT U SP GRAV (test code = 1.025 mg/dl 1.005-1.025 3255) POCT PH U (test code = 3254) 5 mg/dl 5-8 POCT U LEUK EST (test code = neg Negative - Negative 3263) POCT U NIT (test code = 3262) neg Negative - Negative POCT U PROT (test code = trace Negative - Negative 3259) POCT U GLU (test code = 3256) neg Negative - Negative POCT U KETONE (test code = neg Negative - Negative 3258) POCT U UROBILI (test code = neg 0.2-1 3260) POCT U BILI (test code = neg Negative - Negative 3261) POCT U BLD (test code = 3257) 250+ Negative - Negative POCT U COLOR (test code = dark yellow 3266) POCT U APPEAR (test code = clear 3267) [facility] MOLECULAR [id number] 18:03:19 Test Item Value Reference Range Interpretation Comments POCT Molecular FluA (test code = Negative Negative 84546-5) POCT Molecular FluB (test code = Negative Negative 98543-4) Lab Interpretation (test code = Normal 15450-4) [facility] MOLECULAR [id number] 17:52:43 Test Item Value Reference Range Interpretation Comments POCT Molecular Strep (test code = Negative Negative 24834-5) Lab Interpretation (test code = Normal 17501-0) [facility]
[2023-03-23 19:12] LABS: Absolute Lymphocytes (CBC) 2.1 K/uL (0.7-4.9); Hematocrit 32.4 % (36.0-45.0); Lymphocytes % 38.5 % (15.3-44.8); MCV 93.1 fL (80-100); MPV 8.5 fL (7.6-11.3); Platelets 133 thou/uL (152-406); RBC Red Blood Cell Count 3.49 M/uL (3.86-4.86)
[2023-03-23 19:31] LABS: ALT/SGPT 12 U/L (13-56); AST/SGOT 8 U/L (15-37); Albumin 3.7 g/dL (3.4-5.0); Alkaline Phosphatase 92 U/L (45-117); BUN Blood Urea Nitrogen 18 mg/dL (7-18); Bicarbonate 26 mEq/L (21-32); Bilirubin Direct < 0.1 mg/dL (0-0.2); Bilirubin Indirect, Calculated ND mg/dL (0.2-0.8); Bilirubin Total 0.3 mg/dL (0.2-1.0); Glomerular Filtration Rate 105 ml/min (=/>90); Glucose Level 116 mg/dL (74-106); Potassium 3.6 mEq/L (3.5-5.1); Protein, Total 7.2 g/dL (6.4-8.2); Sodium Level 139 mEq/L (136-145)
[2023-03-23] MEDS ORDERED: NA CHLORIDE 0.9% 1,000 ML ONE (19:38)
[2023-03-23] MEDS ORDERED: ONDANSETRON 4 MG/2 ML VIAL ONE (19:38)
[2023-03-23 20:17] LABS: Specific Gravity 1.011 (1.005-1.030)
[2023-03-23 20:30] LABS: Barbiturates NEGATIVE (NEGATIVE); Benzodiazepines NEGATIVE (NEGATIVE); Cocaine NEGATIVE (NEGATIVE); METHAMPHETAM NEGATIVE (NEGATIVE); Methadone ND (NEGATIVE); Opiates NEGATIVE (NEGATIVE); Phencyclidine NEGATIVE (NEGATIVE); THC Cannibis POSITIVE (NEGATIVE)
--- NOTE | 2023-03-23 20:40 | ER ---
Nurse's Notes [facility] Name: Henny Chen Age: 22 yrs Sex: Female : 2000 Arrival Date: 03/23/2023 Time: 18:14 Bed 2 Private MD: Diagnosis: Adverse effect of THC Presentation: 03/23 18:25 Chief complaint: Parent and/or Guardian states: "My grandaughter ate three edible rs5 gummies and she says her heart is racing and has been throwing up". Coronavirus screen: At this time, the client does not indicate any symptoms associated with coronavirus-19. Ebola Screen: No symptoms or risks identified at this time. Initial Sepsis Screen: Does the patient meet any 2 criteria? HR > 90 bpm. Does the patient have a suspected source of infection? No. Patient's initial sepsis screen is negative. Risk Assessment: Do you want to hurt yourself or someone else? Patient reports no desire to harm self or others. Onset of symptoms was March 23, 2023. 18:25 Method Of Arrival: Wheelchair rs5 18:25 Acuity: GIORGIO 3 rs5 Triage Assessment: 19:00 General: Appears in no apparent distress. comfortable, Behavior is calm, cooperative, jw7 appropriate for age. GI: Abdomen is round non-distended, Bowel sounds present X 4 quads. 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 - Social history:: Smoking status: Patient denies any tobacco usage or history of. Screenin:50 [facility] ED Fall Risk Assessment (Adult) History of falling in the last 3 months, db including since admission No falls in past 3 months (0 pts) Confusion or Disorientation No (0 pts) Intoxicated or Sedated No (0 pts) Impaired Gait No (0 pts) Mobility Assist Device Used No (0 pt) Altered Elimination No (0 pt) Score/Fall Risk Level 0 - 2 = Low Risk Oriented to surroundings, Maintained a safe environment. Abuse screen: Denies threats or abuse. Denies injuries from another. Nutritional screening: No deficits noted. Tuberculosis screening: No symptoms or risk factors identified. Assessment: 18:50 Reassessment: Patient appears in no apparent distress at this time. Patient and/or db family updated on plan of care and expected duration. Pain level reassessed. Patient is alert, oriented x 3, equal unlabored respirations, skin warm/dry/pink. Reassessment: reports eating 3 edible gummies. General: Appears in no apparent distress. Neuro: Level of Consciousness is awake, alert, obeys commands, Oriented to person, place, time, situation, Reports dizziness. Respiratory: Airway is patent Respiratory effort is even, unlabored, Respiratory pattern is regular, symmetrical. GI: Abdomen is flat, Reports lower abdominal pain, nausea. 20:00 Reassessment: Patient appears in no apparent distress at this time. No changes from [facility] previously documented assessment. Patient and/or family updated on plan of care and expected duration. Pain level reassessed. Patient is alert, oriented x 3, equal unlabored respirations, skin warm/dry/pink. 21:01 Reassessment: Patient appears in no apparent distress at this time. No changes from jw7 previously documented assessment. Patient and/or family updated on plan of care and expected duration. Pain level reassessed. Patient is alert, oriented x 3, equal unlabored respirations, skin warm/dry/pink. Vital Signs: 18:25 BP 114 / 71; Pulse 126; Resp 18; Temp 97.1(TE); Pulse Ox 99% ; rs5 19:00 BP 107 / 76; Pulse 97; Resp 19 S; Pulse Ox 100% on R/A; jw7 20:00 BP 102 / 64; Pulse 83; Resp 16 S; Pulse Ox 100% on R/A; jw7 21:29 BP 96 / 62; Pulse 86; Resp 16 S; Pulse Ox 99% on R/A; jw7 ED Course: 18:18 Patient arrived in ED. mg5 18:27 [facility] sb4 18:27 Alex Esparza MD is Attending Physician. sb4 18:27 Triage completed. rs5 18:50 Patient has correct armband on for positive identification. Bed in low position. Call db light in reach. Side rails up X2. Client placed on continuous cardiac and pulse oximetry monitoring. NIBP monitoring applied. Warm blanket given. 18:58 Inserted saline lock: 20 gauge in right antecubital area, using aseptic technique. db Blood collected. 19:00 Arm band placed on. jw7 19:06 [place], RN is Primary Nurse. db 19:15 Duran Salmeron, RN is Primary Nurse. bp 20:07 Test, Urine Sent. me1 20:07 Urine Drug Screen Sent. me1 21:01 No provider procedures requiring assistance completed. jw7 21:31 IV discontinued, intact, bleeding controlled, No redness/swelling at site. Pressure jw7 dressing applied. 21:32 Provided Education on: discharge instructions. jw7 Administered Medications: 19:39 Drug: NS 0.9% IV 1000 ml IV at 1 bolus Per protocol; 1000 mL bolus Route: IV; Rate: 1 me1 bolus; Site: right antecubital; 20:55 Follow up: Response: No adverse reaction; IV Status: Completed infusion; IV Intake: jw7 1000ml 19:39 Drug: Ondansetron IVP 4 mg IVP once; over 2 minutes Route: IVP; Site: right antecubital;me1 20:56 Follow up: Response: No adverse reaction; Marked relief of symptoms jw7 Medication: 18:50 VIS not applicable for this client. db Intake: 20:55 IV: 1000ml; Total: 1000ml. jw7 Outcome: 20:40 Discharge ordered by . sb4 21:31 Discharged to home ambulatory, with family, jw7 21:31 Condition: stable 21:31 Discharge instructions given to patient, family, Instructed on discharge instructions, follow up and referral plans. medication usage, Demonstrated understanding of instructions, follow-up care, medications, Prescriptions given X 1, 21:33 Patient left the ED. jw7 Signatures: Duran Salmeron, RN RN Tiffany Jolley RN RN jw7 [place], RN Remedios Roque, PAKarolineC PAKarolineC sb4 Jonathan Zamora RN RN rs5 Cecilia Zuniga RN RN me1 Tsering Garcia mg5
--- NOTE | 2023-03-23 20:40 | EDPHYS ---
Physician Documentation [facility] Name: Henny Chen Age: 22 yrs Sex: Female : 2000 Arrival Date: 03/23/2023 Time: 18:14 Bed 2 Private MD: ED Physician Alex Esparza HPI: 03/23 19:18 This 22 yrs old Female presents to ER via Wheelchair with complaints of Heart sb4 Beating Fast, Vomiting. 19:18 patient reports taking three presumed THC gummies. she is unsure of the dosage of if it sb4 contained anything else besides THC. 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 no other associated signs and symptoms. 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 - Social history:: Smoking status: Patient denies any tobacco usage or history of. ROS: 19:18 Constitutional: Negative for fever, chills, and weight loss, sb4 19:18 Cardiovascular: Positive for palpitations, 19:18 Abdomen/GI: Positive for nausea and vomiting, 19:18 Neuro: Positive for altered mental status, dizziness, 19:18 All other systems are negative, Exam: 19:18 Head/Face: Normocephalic, atraumatic. Eyes: Extra-ocular motions intact. Periorbital sb4 areas with no swelling, redness, or edema. ENT: Mucous membranes moist. Respiratory: Lungs have equal breath sounds bilaterally, clear to auscultation and percussion. No rales, rhonchi or wheezes noted. No increased work of breathing, no retractions or nasal flaring. Abdomen/GI: Soft, non-tender, no distension. Skin: Warm, dry with normal turgor. Normal color with no rashes, no lesions, and no evidence of cellulitis. MS/ Extremity: Pulses equal, no cyanosis. Neurovascular intact. Full, normal range of motion. Neuro: Awake and alert, GCS 15, oriented to person, place, time, and situation. Motor strength 5/5 in all extremities. Sensory grossly intact. 19:18 Constitutional: The patient appears alert, awake, lethargic, 19:18 Cardiovascular: Rate: tachycardic, Rhythm: regular, Pulses: no pulse deficits are appreciated, Vital Signs: 18:25 BP 114 / 71; Pulse 126; Resp 18; Temp 97.1(TE); Pulse Ox 99% ; rs5 19:00 BP 107 / 76; Pulse 97; Resp 19 S; Pulse Ox 100% on R/A; jw7 20:00 BP 102 / 64; Pulse 83; Resp 16 S; Pulse Ox 100% on R/A; jw7 21:29 BP 96 / 62; Pulse 86; Resp 16 S; Pulse Ox 99% on R/A; jw7 MDM: 18:32 Patient medically screened. sb4 19:18 Differential diagnosis: drug overdose, gastroenteritis, vertigo, dehydration, anemia, sb4 electrolyte abnormality. 20:39 Data reviewed: vital signs, nurses notes, lab test result(s), EKG, and as a result, I sb4 will discharge patient. Historians other than the Patient: Family Member: grandmother. Counseling: I had a detailed discussion with the patient and/or guardian regarding the historical points, exam findings, and any diagnostic results supporting the discharge/admit diagnosis, lab results, to return to the emergency department if symptoms worsen or persist or if there are any questions or concerns that arise at home. 03/23 18:37 Order name: Acetaminophen; Complete Time: 19:38 sb4 03/23 18:37 Order name: Basic Metabolic Panel; Complete Time: 19:38 sb4 03/23 18:37 Order name: CBC with Diff; Complete Time: 19:17 sb4 03/23 18:37 Order name: ETOH Level; Complete Time: 19:38 sb4 03/23 18:37 Order name: Hepatic Function; Complete Time: 19:38 sb4 03/23 18:37 Order name: Test, Urine; Complete Time: 20:28 sb4 03/23 18:37 Order name: Salicylate; Complete Time: 19:48 sb4 03/23 18:37 Order name: Urine Drug Screen; Complete Time: 20:33 sb4 03/23 18:37 Order name: EKG; Complete Time: 18:38 sb4 03/23 18:37 Order name: EKG - Nurse/Tech; Complete Time: 20:06 sb4 03/23 18:37 Order name: IV Saline Lock; Complete Time: 19:39 sb4 03/23 18:37 Order name: Labs collected and sent; Complete Time: 19:39 sb4 03/23 18:37 Order name: Suicide Screening ([place]); Complete Time: 19:15 sb4 EC:52 Rate is 85 beats/min. Rhythm is irregular, Sinus arrythmia. [place] interval is normal at sb4 130 msec. QRS interval is normal at 76 msec. QT interval is normal at 426 msec. No Q waves. T waves are Normal. No ST changes noted. Clinical impression: Sinus arrythmia. Interpreted by me. Reviewed by me. Administered Medications: 19:39 Drug: NS 0.9% IV 1000 ml IV at 1 bolus Per protocol; 1000 mL bolus Route: IV; Rate: 1 me1 bolus; Site: right antecubital; 20:55 Follow up: Response: No adverse reaction; IV Status: Completed infusion; IV Intake: jw7 1000ml 19:39 Drug: Ondansetron IVP 4 mg IVP once; over 2 minutes Route: IVP; Site: right antecubital;me1 20:56 Follow up: Response: No adverse reaction; Marked relief of symptoms jw7 Disposition Summary: 03/23/23 20:40 Discharge Ordered Notes: Location: Home sb4 Problem: new sb4 Symptoms: have improved sb4 Condition: Stable sb4 Diagnosis - Adverse effect of THC sb4 Followup: sb4 - With: Emergency Department - When: As needed - Reason: Trouble breathing, Worsening of condition Discharge Instructions: - Discharge Summary Sheet sb4 - Dizziness, [id number] sb4 Forms: - Medication Reconciliation Form sb4 - Thank You Letter sb4 - Antibiotic Education sb4 - Prescription Opioid Use sb4 - Patient Portal Instructions sb4 - Leadership Thank You Letter sb4 Prescriptions: - Zofran 4 mg Oral Tablet - take 1 tablet ORAL route every 12 hours As needed; 20 tablet; Refills: 0, sb4 Product Selection Permitted Signatures: Dispatcher [employer] Remedios Magaña PA-C PA-C sb4 Jonathan Zamora RN RN rs5 Cecilia Zuniga, RN RN me1 Tiffany Mckeon RN jw7
[2023-03-23 21:56] VITALS: TEMP 97.1
[2023-03-23 22:00] VITALS: BP 96/62; O2SAT 99
--- NOTE | 2023-03-24 14:41 | EKG ---
Test Date: 2023-03-23 Test Time: 19:48:13 Spot Machine Operator: VALERIE MEASUREMENT RESULTS: Intervals: Rate: 85 IL: 130 QRSD: 76 QT: 358 QTc: 426 [place]: P: 55 IL: 130 QRS: 80 T: 53 INTERPRETIVE STATEMENTS: Normal sinus rhythm with sinus arrhythmia Normal ECG No previous ECG available for comparison Electronically Signed On 03-24-23 14:39:37 CDT by Henry Newberry
== END 2023-03-23 21:33 | disposition home or self-care (01) ==
LOC: ER 18:14
DX: R00.2 Palpitations (principal); T40.715A Adverse effect of cannabis, initial encounter; Z88.8 Allergy status to other drugs, medicaments and biological substances
CPT/HCPCS: 96361; 93005; 85025; 80048; 36415; 81025; 80076; 80307; 96374; 99284; 80143; 80179; 82077; J2405; J7030